=== PATIENT | female | born 1995 | race Caucasian/White ===

== ENCOUNTER 2023-05-19 08:16 | Emergency (ER) | payer OTHER, SELFPAY ==
[2023-05-19 08:24] VITALS: BP 130/75; PULSE 83; RESP 20; TEMP 36.3; O2SAT 100
--- NOTE | 2023-05-19 08:24 | ED.URI ---
HPI - URI/Sore Throat General Chief Complaint: Upper Respiratory Infection Stated Complaint: Body Aches/Sore Throat Source: patient and RN notes reviewed Mode of arrival: ambulatory Limitations: no limitations History of Present Illness HPI Narrative: patient is a 27-year-old female who presents to the [facility] with son with complaints of sore throat and congestion starting yesterday. She states that she is starting to develop a cough today that is nonproductive. She denies chest pain or shortness of breath. She also endorses some mild generalized body aches. Denies known fevers. She reports fever. Denies abdominal pain, nausea, vomiting, diarrhea. Unsure of any known sick contacts. However, her son presents to the [facility] with similar symptoms. Related Data Home Medications Medication Instructions Recorded Confirmed fluconazole 100 mg tablet 100 mg DIRECTED 05/19/23 05/19/23 sucralfate 1 gram tablet 1 g DIRECTED 05/19/23 05/19/23 Allergies Allergy/AdvReac Type Severity Reaction Status Date / Time metformin AdvReac Intermediate Abdominal Verified 05/19/23 08:35 Pain Review of Systems Review of Systems: CONSTITUTIONAL: Denies fever, chills, or sweats. EYES: Denies visual changes, redness, or discharge. ENT: Denies otalgia. Reports sore throat. Reports nasal congestion. CARDIOVASCULAR: Denies chest pain, palpitations, or edema. RESPIRATORY: Reports cough but denies dyspnea. GASTROINTESTINAL: Denies abdominal pain, nausea, vomiting, or diarrhea. GENITOURINARY: Denies dysuria or hematuria. SKIN: Denies rash or itching. MUSCULOSKELETAL: Denies back pain, joint pain, or myalgia. NEUROLOGIC: Reports headache, but denies numbness or weakness. Pertinent positives per HPI. PMFSH Comments At the time of my signature, I reviewed and agree with the nursing past medical, surgical, social, and family history. There is no relevant family history pertinent to the patient complaint. Exam Narrative: GENERAL: This is a well-nourished, well-developed patient, in no apparent distress. HEAD: normocephalic, atraumatic. EYES: PERRL. Sclera clear/white. Vision is grossly intact. EARS: External ears normal, auditory canals clear and without drainage, TMs normal without perforation. Hearing grossly intact. NOSE: External nose normal with no obvious nasal discharge, nares without redness, no rhinorrhea. THROAT: Mucous membranes moist, posterior pharynx clear. NECK: Neck supple, non-tender without lymphadenopathy, masses or thyromegaly. CARDIOVASCULAR: Regular rate and rhythm without murmurs, gallops, or rubs. RESPIRATORY: Clear to auscultation. Breath sounds equal bilaterally. No wheezes, rales, or rhonchi. GASTROINTESTINAL: Abdomen soft, non-tender, nondistended. Bowel sounds are active. No hepato-splenomegaly, or palpable masses. No guarding. SKIN: warm, intact with no suspicious lesions or rash, good texture and turgor. NEURO: awake, alert, and oriented to person, place and time. There were no obvious focal neurologic abnormalities. EXTREMITIES: No clubbing, cyanosis, or edema. No joint tenderness, effusion, or edema noted. BACK: Nontender without deformity or crepitance. No flank tenderness. Course Course Level of Care: Express Care Visit Vital Signs Vital signs: Vital Signs Temperature 97.3 F L 05/19/23 08:24 Pulse Rate 83 05/19/23 08:24 Respiratory Rate 20 05/19/23 08:24 Blood Pressure 130/75 05/19/23 08:24 Pulse Oximetry 100 05/19/23 08:24 Oxygen Delivery Room Air 05/19/23 08:24 Temperature 97.3 F L 05/19/23 08:24 Pulse Rate 83 05/19/23 08:24 Respiratory Rate 20 05/19/23 08:24 Blood Pressure 130/75 05/19/23 08:24 Pulse Oximetry 100 05/19/23 08:24 Oxygen Delivery Room Air 05/19/23 08:24 Reviewed MDM - URI/Sore Throat MDM Narrative Medical decision making narrative: Rapid strep is negative in the office; however we will send to the lab for confir
== END 2023-05-19 09:20 | disposition home or self-care (01) ==
PROVIDERS: Emergency Provider Nurse Practitioner; PCP Hospitalist
DX: B34.9 Viral infection, unspecified (principal); Z20.822 Contact with and (suspected) exposure to COVID-19; K21.9 Gastro-esophageal reflux disease without esophagitis
CPT/HCPCS: 87081; 87426; 87804; 87880; 99203; G0463

== ENCOUNTER 2023-07-13 17:42 | Emergency (ER) | payer OTHER, SELFPAY ==
[2023-07-13 17:50] VITALS: BP 132/65; PULSE 108; RESP 18; TEMP 37.1; O2SAT 98
--- NOTE | 2023-07-13 18:43 | ED.URI ---
HPI - URI/Sore Throat General Chief Complaint: Upper Respiratory Infection Stated Complaint: throat Time Seen by Provider: 07/13/23 18:30 Source: patient Mode of arrival: ambulatory Limitations: no limitations History of Present Illness HPI Narrative: 28 year old female who presents to [facility] with complaints of sore throat,sinus congestion, headache, body aches, fatigue some ear fullness since this morning. Patient reports that she has had some chills but no known fevers. She reports that she has taken an allergy medication.Patient reports that she had to leave work early today she was feeling bad. MD elicited complaint: sore throat, rhinorrhea, nasal congestion and other (headache, ear fullness, fatigue body aches, chills) Pertinent past history: seasonal allergies and other (history of strep) Onset (ago): day(s) (this morning) Pain scale (0-10): 6 Able to tolerate fluids by mouth: Yes Treatments prior to arrival: other (allergy medication) Related Data Allergies Allergy/AdvReac Type Severity Reaction Status Date / Time metformin AdvReac Intermediate Abdominal Verified 07/13/23 18:19 Pain Review of Systems Review of Systems: CONSTITUTIONAL: Reports malaise, chills, no sweats, no known fever. EYES: Denies visual changes, redness, or discharge. ENT: Reports rhinorrhea, congestion, sinus pain, otalgia and sore throat. CARDIOVASCULAR: Denies chest pain, palpitations, or edema. RESPIRATORY: Reports no cough.? Denies dyspnea. GASTROINTESTINAL: Denies abdominal pain, nausea, vomiting, diarrhea SKIN: Denies rash or itching. MUSCULOSKELETAL:Reports myalgia. NEUROLOGIC: Reports headache. All systems reviewed & are unremarkable except as noted in HPI and below PMFSH Past Medical History Medical History (Updated 07/15/23 @ 09:27 by Karmen Dixon NP) Anxiety and depression GERD (gastroesophageal reflux disease) History of PCOS Seasonal allergies Strep pharyngitis Social History Social History (Updated 07/15/23 @ 09:27 by Karmen Dixon NP) Smoking status: Current every day smoker Tobacco type: e-cigarettes/vaping Alcohol intake: current Alcohol use details: rare social Substance use type: does not use Living arrangements: with family Gender identity (if verbalized by the patient): Female Comments At time of signature, agree with nursing past medical, surgical, social and family history. There is no relevant family history pertinent to the presenting complaint Exam Narrative: GENERAL: Well-appearing, well-nourished, and in no acute distress. HEAD: Normocephalic EYES: PERRLA, conjunctivae clear ENT: Nares clear, turbinates edematous and erythematous, clear discharge, frontal headache. Mucous membranes moist.Left RM red and bulging,Right TM pearly darby with dull light reflex ; no tragal tenderness. Oropharynx erythematous without lesions. Tonsils not enlarged and without exudate, no drooling, no hoarseness, no trismus, uvula midline.post nasal drainage NECK: Supple. No lymphadenopathy CHEST: Clear to auscultation, breath sounds equal. No wheezing, rhonchi, rales, or stridor. No respiratory distress, speaks in full sentences.SAO2 98% on room air HEART: Regular rate and rhythm. No murmur heard. SKIN: Warm, dry, no rash. NEURO: Alert and oriented x3. PSYCH: Normal mood and affect Course Course Emergency Course: Patient is aware of diagnosis, understands and agrees to treatment plan.? Anticipatory guidance given.? Patient agrees to follow-up as directed and is aware of reasons to seek care at the emergency department. Portions of this record may have been created with voice recognition software Level of Care: Express Care Visit Vital Signs Vital signs: Vital Signs Temperature 37.1 C 07/13/23 17:50 Pulse Rate 108 H 07/13/23 17:50 Respiratory Rate 18 07/13/23 17:50 Blood Pressure 132/65 07/13/23 17:50 Pulse Oximetry 98 07/13/23 17:50
== END 2023-07-13 19:10 | disposition home or self-care (01) ==
PROVIDERS: Emergency Provider Registered Nurse; PCP Hospitalist
DX: H65.02 Acute serous otitis media, left ear (principal); F17.290 Nicotine dependence, other tobacco product, uncomplicated; K21.9 Gastro-esophageal reflux disease without esophagitis; E28.2 Polycystic ovarian syndrome
CPT/HCPCS: 87081; 87880; 99213; G0463

== ENCOUNTER 2024-04-24 14:12 | Emergency (ER) | payer OTHER, SELFPAY ==
--- NOTE | ~2024-04-24 | XR_ITS ---
EXAMINATION: XR nasal bones min 3V DATE: 04/24/2024 15:40 INDICATION: Nose injury. TECHNIQUE: 4 views of the nasal bones were obtained. COMPARISON: None. FINDINGS: There is leftward deviation of the nasal septum. No fracture. There is near complete opacif ication of right maxillary sinus. IMPRESSION: 1. No fracture. Reviewed, dictated and finalized at location A. E PEELER OPERATOR IMPRESSION: 1. No fracture.
[2024-04-24 14:20] VITALS: BP 125/70; PULSE 109; RESP 16; TEMP 37; O2SAT 99
--- OUTSIDE RECORDS SUMMARY | 2024-04-24 14:56 | XMS_ITS | Patient Health Summary ---
Author Organization [facility] [employer] Address [address] [facility] [address] [place] [address] Care Team Providers Care Mixing Picker Tender Name Role Phone Unavailable Primary Care Provider Unavailabl e Note from [facility],non-owned Affiliates and Associated Physician Practices is amultiple site organization consisting of ambulatory clinics and hospital sitesin [place], [place], [place] and [place]. This disclosure is being madepursuant to the Care Everywhere program and may not contain all information available regarding this patient. Last updated 17.[facility] [employer] Allergies No known active allergies Medications * Be aware that medications may not be up to date on this document. Alwaysverify current medications with the patient. * Vit-Fe Fumarate-FA ( VITAMIN) 28-0.8 MG tablet Take 1 Tab by mouth once daily * ibuprofen (MOTRIN) 600 MG tablet(Started 09/28/2015) Take 1 Tab by mouth every 6 hours as needed for Pain 1 refill left * docusate sodium (COLACE) 100 MG capsule(Started 09/28/2015) Take 1 Cap by mouth 2 times daily 1 refill left Active Problems Problem Noted Date Diagnosed Date Abnormal Pap smear of cervix 09/10/2015 History of tobacco use 09/10/2015 premature rupture of membranes (PPROM) with unknown onset of labor 09/10/2015 SAB (spontaneous ) 09/10/2015 Anxiety 09/10/2015 Depression 09/10/2015 abnormality affecting management of mother Hyperglycemia in Immunizations * TDAP (7yrs+)(Given 09/17/2015) Social History Tobacco Use Types Packs/Day Years Used Date Smoking Tobacco: Former Cigarettes Tobacco Cessation:Counseling Given: Yes Alcohol Use Standard Drinks/Week Comments Not Asked 0 (1 standard drink = 0.6 oz pur e alcohol) Sex and Gender Information Value Date Recorded Sex Assigned at Not on file Gender Identity Not on file Sexual Orientation Not on file Last Filed Vital Signs Vital Sign Reading Time Taken Comments Blood Pressure 135/91 09/28/2015 12:56 PM CDT Pulse 81 09/28/2015 12:56 PM CDT Temperature 36.9 ??C (98.4 ??F) 09/28/2015 9:31 AM CD T Respiratory Rate 18 09/28/2015 12:5 6 PM CDT Oxygen Saturation 99% 09/27/2015 9:35 PM CDT Inhaled Oxygen Concentration - - Weight 80.2 kg (176 lb 11.2 oz) 016 11:45 AM CDT Height 157.5 cm (5' 2 ) 09/15/2015 11:3 5 AM CDT Body Mass Index 32.32 09/15/2015 11:35 AM CDT Procedures * IMAGING/RADIOLOGY/XRAY RESULTS ORDER(Performed 10/02/2015) * CBC W/O DIFFERENTIAL(Performed 09/27/2015) * BLOOD GASES CORD ART (ISTAT)(Performed 09/26/2015) * NEURAXIAL BLOCK(Performed 09/26/2015) * AMNISURE(Performed 09/26/2015) * TYPE + SCREEN PANEL(Performed 09/25/2015) * CBC W AUTO DIFFERENTIAL(Performed 09/25/2015) * GLUCOSE - POINT OF CARE(Performed 09/24/2015) * GLUCOSE - POINT OF CARE(Performed 09/24/2015) * GLUCOSE - POINT OF CARE(Performed 09/23/2015) * GLUCOSE - POINT OF CARE(Performed 09/23/2015) * GLUCOSE - POINT OF CARE(Performed 09/22/2015) * GLUCOSE - POINT OF CARE(Performed 09/22/2015) * GLUCOSE PROTEIN KETONE URINE - POINT OF CAR(Performed 09/22/2015) * GLUCOSE - POINT OF CARE(Performed 09/22/2015) * GLUCOSE - POINT OF CARE(Performed 09/22/2015) * GLUCOSE - POINT OF CARE(Performed 09/21/2015) * GLUCOSE - POINT OF CARE(Performed 09/21/2015) * GLUCOSE - POINT OF CARE(Performed 09/20/2015) * GLUCOSE - POINT OF CARE(Performed 09/20/2015) * GLUCOSE - POINT OF CARE(Performed 09/19/2015) * GLUCOSE - POINT OF CARE(Performed 09/19/2015) * GLUCOSE - POINT OF CARE(Performed 09/19/2015) * GLUCOSE - POINT OF CARE(Performed 09/18/2015) * GLUCOSE - POINT OF CARE(Performed 09/18/2015) * GLUCOSE - POINT OF CARE(Performed 09/18/2015) * GLUCOSE - POINT OF CARE(Performed 09/18/2015) * GLUCOSE - POINT OF CARE(Performed 09/18/2015) * GLUCOSE - POINT OF CARE(Performed 09/17/2015) * GLUCOSE - POINT OF CARE(Performed 09/17/2015) * GLUCOSE - POINT OF CARE(Performed 09/17/2015) * GLUCOSE - POINT OF CARE(Performed 09/17/2015) * GLUCOSE - POINT OF CARE(Performed 09/16/2015) * GLUCOSE - POINT OF CARE(Performed 09/16/2015) * GLUCOSE - POINT OF CARE(Performed 09/16/2015) * GLUCOSE - POINT OF CARE(Performed 09/16/2015) * GLUCOSE - POINT OF CARE(Performed 09/16/2015) * GLUCOSE - POINT OF CARE(Performed 09/16/2015) * GLUCOSE PROTEIN KETONE URINE - POINT OF CAR(Performed 09/15/2015) * GLUCOSE - POINT OF CARE(Performed 09/15/2015) * GLUCOSE - POINT OF CARE(Performed 09/15/2015) * GLUCOSE - POINT OF CARE(Performed 09/15/2015) * GLUCOSE - POINT OF CARE(Performed 09/15/2015) * GLUCOSE - POINT OF CARE(Performed 09/15/2015) * GLUCOSE - POINT OF CARE(Performed 09/15/2015) * GLUCOSE - POINT OF CARE(Performed 09/15/2015) * GLUCOSE - POINT OF CARE(Performed 09/15/2015) * GLUCOSE - POINT OF CARE(Performed 09/15/2015) * GLUCOSE - POINT OF CARE(Performed 09/15/2015) * GLUCOSE - POINT OF CARE(Performed 09/14/2015) * GLUCOSE - POINT OF CARE(Performed 09/14/2015) * GLUCOSE - POINT OF CARE(Performed 09/14/2015) * GLUCOSE - POINT OF CARE(Performed 09/14/2015) * GLUCOSE - POINT OF CARE(Performed 09/14/2015) * GLUCOSE - POINT OF CARE(Performed 09/14/2015) * GLUCOSE - POINT OF CARE(Performed 09/14/2015) * GLUCOSE - POINT OF CARE(Performed 09/13/2015) * GLUCOSE - POINT OF CARE(Performed 09/13/2015) * GLUCOSE - POINT OF CARE(Performed 09/13/2015) * GLUCOSE - POINT OF CARE(Performed 09/13/2015) * GLUCOSE - POINT OF CARE(Performed 09/13/2015) * GLUCOSE - POINT OF CARE(Performed 09/13/2015) * GLUCOSE - POINT OF CARE(Performed 09/12/2015) * GLUCOSE - POINT OF CARE(Performed 09/12/2015) * GLUCOSE - POINT OF CARE(Performed 09/12/2015) * GLUCOSE - POINT OF CARE(Performed 09/12/2015) * GLUCOSE - POINT OF CARE(Performed 09/12/2015) * GLUCOSE - POINT OF CARE(Performed 09/11/2015) * SONOGRAM - COMPLETE(Performed 09/11/2015) * AMNISURE(Performed 09/10/2015) * URINE DRUG SCREEN IMMUNOASSAY(Performed 09/10/2015) Performed for premature rupture of membranes (PPROM) with unknown onset of labor (HCC) * TYPE + SCREEN PANEL(Performed 09/10/2015) Performed for premature rupture of membranes (PPROM) with unknown onset of labor (HCC) * COMPREHENSIVE METABOLIC PANEL(Performed 09/10/2015) Performed for premature rupture of membranes (PPROM) with unknown onset of labor ([facility]) * CBC W AUTO DIFFERENTIAL(Performed 09/10/2015) Performed for premature rupture of membranes (PPROM) with unknown onset of labor (HCC) * CHLAMYDIA + GC AMPLIFIED PROBE(Performed 09/10/2015) Performed for premature rupture of membranes (PPROM) with unknown onset of labor ([facility]) * CULTURE STREP B(Performed 09/10/2015) Performed for premature rupture of membranes (PPROM) with unknown onset of labor (HCC) * CULTURE URINE(Performed 01/12/2014) Results * IMAGING/RADIOLOGY/XRAY RESULTS ORDER (10/02/2015 5:02 AM CDT) Anatomical Region Laterality Modality Other Narrative 10/02/2015 5:02 AM CDT Ordered by an unspecified provider. Scanned Document IMAGING * (ABNORMAL) CBC W/O DIFFERENTIAL (09/27/2015 11:20 AM CDT) WBC 13.7(H) 4.4 - 10.7 x10E9/L 09/27/2015 11:49 AM CDT [facility] RBC 4.13 3.80 - 5.20 x10E12/L 09/27/2015 11:49 AM CDT [facility] Hemoglobin 11.2(L) 12.0 - 15.6 gm/dL 09/27/2015 11:49 AM CDT [facility] Hematocrit 33.9(L) 35.9 - 45.5 % 09/27/2015 11:49 AM CDT [facility] MCV 82.1 80.7 - 98.3 fl 09/27/2015 11:49 AM CDT [facility] MCH 27.1 26.7 - 34.0 pg 09/27/2015 11:49 AM CDT [facility] MCHC 33.0 30.8 - 35.9 gm/dL 09/27/2015 11:49 AM CDT [facility] Platelet Count 173 153 - 416 x10E9/L 09/27/2015 11:49 AM CDT [facility] RDW-CV 13.5 12.1 - 14.9 % 09/27/2015 11:49 AM CDT [facility] MPV 11.5 9.4 - 12.9 fl 09/27/2015 11:49 AM CDT [facility] Blood BLOOD SPECIMEN / Unknown Lab Venipuncture / Unknown 09/27/2015 11:20 AM CDT 09/27/2015 11:38 AM CDT Meli Conti MD LAB - HEMATOLOGY OR DERABLES Performing Organization Address [facility]/State/[facility] Co de Phone Number [facility] [address] [place], [place] [id number] * (ABNORMAL) BLOOD GASES CORD ART (ISTAT) (09/26/2015 7:43 PM CDT) pH Cord Arterial POCT 7.33 7.20 - 7.34 pH 09/26/2015 7:57 PM CDT [facility] pCO2 Cord Arterial POCT 44.9(L) 45 - 55 mmHg 09/26/2015 7:57 PM CDT [facility] pO2 Cord Arterial POCT 23 12 - 25 mmHg 09/26/2015 7:57 PM CDT [facility] HCO3 Cord Arterial POCT 23.6 15 - 29 mmol/L 09/26/2015 7:57 PM CDT [facility] BE Cord Arterial POCT -3(L) -2.9 - 8.3 mmol/L 09/26/2015 7:57 PM CDT [facility] TCO2 Cord Arterial POCT 25 mmol/L 09/26/2015 7:57 PM CDT [facility] O2 Saturation Cord Art % Calc POCT 34 % 09/26/2015 7:57 PM CDT [facility] Site CORD ART 09/26/2015 7:57 PM CDT [facility] Sample iSTAT CORD A 09/26/2015 7:57 PM CDT [facility] Blood CORD BLOOD SPECIMEN / Unknown 09/26/2015 7:43 PM CDT 09/26/2015 7:57 PM CDT Dewey Pete MD LAB - POINT OF CARE ORDERABLES Performing Organization Address City/State/[facility] Co de Phone Number [facility] [address] [place] [address] * NEURAXIAL BLOCK (09/26/2015 3:00 PM CDT) Narrative Silas Peoples APRN-CRNA - 09/26/2015 3:00 PM CDT Silas Peoples APRN-CRNA ? 09/26/2015 ??3:00 PM NEURAXIAL BLOCK Patient Location: ??OB Pre Procedure Indication: ??labor analgesia Anticoagulation /Antithrombosis Status Confirmed: Yes Preanesthetic Checklist: ??patient identified, IV checked, site marked, risks and benefits discussed, surgical consent verified, monitors and equipment checked, pre-op evaluation done, timeout performed, informed consent obtained and questions answered / anesthesia plan accepted Monitors: ??BP and Pulse Ox Patient Condition: ??awake Procedure Block Performed: ??epidural Prep: ??Betadine Sterile Field: ??sterile gloves, sterile field established, cap/hat and mask Approach: ??midline Skin Numbed with: ??lidocaine 1% Epidural Needle Type: ??Tuohy Needle Gauge: 18 Needle Length: ??9 cm Placement Site: ??L4-L5 Number of Attempts: ??1 Loss of ResistanceTechnique: ??saline Loss of Resistance: ??6 cm Catheter Threaded to: ??5 cm Catheter Length at Skin: ??11 cm CSF Aspirated from Catheter: ??negative Blood Aspirated from Catheter: ??negative Test Dose: ??lidocaine 1.5% with 1 200 k epinephrine 3 ml ??at 09/26/2015 2:52 PM Test Dose Response: ??negative Local Anesthetic: ??lidocaine 2% 5 ml Epidural additive: ??fentanyl ? Events CSF return negative injection not painful no paresthesia no other event Degree of Difficulty: ??none Position Post Procedure: ??left uterine displacement Vital signs monitored and stable throughout. ??See Anesthesia Intraop record for details. heart tones monitored and stable throughout. Block Start Time: ??09/26/2015 2:50 PM Block End Time: ??09/26/2015 2:52 PM Block Performed by: ??Molly peoples CRNA Dewey Pete MD GENERAL ANESTHESIA O RDERABLES * (ABNORMAL) AMNISURE (09/26/2015 6:06 AM CDT) Only the most recent of2 resultswithin the time period is included. Amnisure (PAMG-1) Positive(A ) Negative 09/26/2015 6:27 AM CDT [facility] Fluid AMNIOTIC FLUID SPECIMEN / Unknown Collection / Unknown 09/26/2015 6:06 AM CDT 09/26/2015 6:16 AM CDT Narrative [facility] - 09/26/2015 6:27 AM CDT The performance of AmniSure has not been established in the presence of the following contaminants: meconium, anti-fungal creams or suppositories, K-Y Jelly, Monistat, baby powder (starch or talc), replens, or baby oil. In the presence of a significant amount of blood, the test can malfunction and is not recommended. Interrupted leakage with minimal residual fluid can lead to false negative result. Results should be used in conjunction with other clinical information. Test performance in patients without signs of ROM is unknown. Placenta previa and performing digital exams prior to sample collection can lead to inaccurate test results. Failure to detect membrane rupture does not assure the absence of membrane rupture. Francia Mejia MD LAB - BODY FLUID ORD ERABLES Performing Organization Address [facility]/ZIP Co de Phone Number [facility] [address] [place] [address] * TYPE + SCREEN PANEL (09/25/2015 9:09 PM CDT) Only the most recent of2 resultswithin the time period is included. Pathologist [facility] ABO A 09/25/2015 10:07 PM CDT [facility] Rh Type Positive 09/25/2015 10:07 PM CDT [facility] Comment:History check perfor med. No retype required. Antibody Screen Negative 09/25/2015 10:07 PM CDT [facility] Miscellaneous samples (specimen) BLOOD SPECIMEN / Unknown Venipuncture / Unknown 09/25/2015 9:09 PM CDT 09/25/2015 9:15 PM CDT Mihaela Alicia MD LAB - BLOOD BANK ORD ERABLES Performing Organization Address [facility] Co de Phone Number [facility] [address] * (ABNORMAL) CBC W AUTO DIFFERENTIAL (09/25/2015 9:09 PM CDT) Only the most recent of2 resultswithin the time period is included. Pathologist [facility] WBC 13.5(H) 4.4 - 10.7 x10E9/L 09/25/2015 9:20 PM CDT [facility] WBC Corrected x10E9/L 09/25/2015 9:20 PM CDT [facility] RBC 4.32 3.80 - 5.20 x10E12/L 09/25/2015 9:20 PM CDT [facility] Hemoglobin 11.8(L) 12.0 - 15.6 gm/dL 09/25/2015 9:20 PM CDT [facility] Hematocrit 35.2(L) 35.9 - 45.5 % 09/25/2015 9:20 PM CDT [facility] MCV 81.5 80.7 - 98.3 fl 09/25/2015 9:20 PM CDT [facility] MCH 27.3 26.7 - 34.0 pg 09/25/2015 9:20 PM [facility] MCHC 33.5 30.8 - 35.9 gm/dL 09/25/2015 9:20 PM [facility] Platelet Count 197 153 - 416 x10E9/L 09/25/2015 9:20 PM [facility] RDW-CV 13.5 12.1 - 14.9 % 09/25/2015 9:20 PM [facility] MPV 11.5 9.4 - 12.9 fl 09/25/2015 9:20 PM [facility] Neutrophils % 75.5(H) 44.0 - 73.0 % 09/25/2015 9:20 PM [facility] Lymphocytes % 15.8(L) 20.0 - 43.0 % 09/25/2015 9:20 PM [facility] Monocytes % 7.3 5.0 - 13.0 % 09/25/2015 9:20 PM [facility] Eosinophils % 0.7 0.0 - 6.0 % 09/25/2015 9:20 PM [facility] Basophils % 0.1 0.0 - 2.0 % 09/25/2015 9:20 PM [facility] Immature Granulocytes 0.6 0 - 1 % 09/25/2015 9:20 PM [facility] Neutrophil Absolute 10.18(H) 2.01 - 7.14 x10E9/L 09/25/2015 9:20 PM [facility] Lymphocytes Absolute 2.13 1.07 - 3.94 x10E9/L 09/25/2015 9:20 PM [facility] Monocytes Absolute 0.98 0.26 - 1.07 x10E9/L 09/25/2015 9:20 PM [facility] Eosinophils Absolute 0.09 0 - 0.47 x10E9/L 09/25/2015 9:20 PM [facility] Basophils Absolute 0.01 0 - 0.08 x10E9/L 09/25/2015 9:20 PM [facility] Immature Granulocytes Absolute 0.08(H) 0.00 - 0.06 x10E9/L 09/25/2015 9:20 PM [facility] nRBC Auto 0 /100 WBC 09/25/2015 9:20 PM CDT [facility] Blood BLOOD SPECIMEN / Unknown Venipuncture / Unknown 09/25/2015 9:09 PM CDT 09/25/2015 9:15 PM CDT Mihaela Alicia MD LAB - HEMATOLOGY ORD ERABLES Performing Organization Address [facility]/ZIP Co de Phone Number [facility] [address] [place] [address] * (ABNORMAL) GLUCOSE - POINT OF CARE (09/24/2015 11:10 AM CDT) Only the most recent of59 resultswithin the time period is included. Glucose WB/POC 149(H) 70 - 106 mg/dL 09/24/2015 6:16 PM CDT [facility] Blood BLOOD SPECIMEN / Unknown 09/24/2015 11:10 AM CDT 09/24/2015 6:16 PM CDT Dewey Pete MD LAB - POINT OF CARE ORDERABLES Performing Organization Address [facility] Co de Phone Number [facility] [address] [place] [address] * GLUCOSE PROTEIN KETONE URINE - POINT OF CAR (09/22/2015 2:47 PM CDT) Only the most recent of2 resultswithin the time period is included. Glucose UA negative Negative [facility] Protein UA negative Negative [facility] Ketone UA negative Negative [facility] QC Verified Yes Yes [facility] POC T TESTING Urine specimen (specimen) URINE / Unknown 09/22/2015 2:47 PM CDT Mariah Amaral MD LAB - POINT OF CA RE ORDERABLES Performing Organization Address [facility] Co de Phone Number [facility] [address] [place] [address] * SONOGRAM - COMPLETE (09/11/2015 10:59 AM CDT) Anatomical Region Laterality Modality Other 09/11/2015 10:5 9 AM CDT Narrative 09/11/2015 4:18 PM CDT ? [facility] ?PHONE: ??FAX: Pat. Name: ?JONNIE RAVI Pat. No: ?[id number] Study Date: ?? 09/11/2015 ??10:59am , Age: ? 1995, 20 Pregnancies: ?? 2, Para 0, Ab 1 Height: ? 62 in Weight: ? 148 lb LMP: ?Unknown GA by US: ? 32w1d GA Selected: ??32w1d (Sonographic) DIPAK: ?11/05/2015 Referring MD: Kay Velasquez MD Sausage Tier: ??Miriam Fraga RDMS Hist/Ind: ? PPROM MEASUREMENTS & AGE ? GROWTH EVALUATION Measurement ??GA ? Range ? Srce %for GA Ratios ----- ---- ------- BPD ??7.9 cm 31w4d (95s4y-05z4y) Hadl BPD 42% FL/BPD 0.70 (0.71 - 0.87* HC ??27.1 cm 29w4d (47t0o-54b1z) Hadl HC ??<05 FL/AC ??0.19 (0.20 - 0.24* AC ??28.7 cm 32w5d (67x8l-05c4w) Hadl AC ??58% HC/AC ??0.94 (0.95 - 1.14* FL ?? 5.5 cm 29w1d (52a0d-93a4c) Hadl FL ??<05 CI ? 0.86 (0.70 - 0.86) HL ?? 5.0 cm 29w0d (24u4h-43w2u) Brendan HL ??<05 GA for sonogram 32w1d (23a7w-78b9h) ?? Weight Estimate: based on (BPD,AC) Hadlock ?Weight: 1731 gm (7363-1755) Hadlo ? : 3lbs, 13oz ? Normal: 1993 gm (1495- 2491) Hadlo ? Wt% ? 25% for 32w1d Heart Rate: 128 bpm Amniotic Fluid Index: 12.1cm (08.5-24.3) Q1: 3.5cm ??Q2: 4.2cm ??Q3: 1.7cm ??Q4: 2.7cm ?? CLINICAL SUMMARY Study Number: 1 A single fetus is identified in cephalic presentation. ??The measurements today are consistent with appropriate size for the DIPAK provided. ??The DIPAK selected is based on a prior ultrasound examination. ??The amniotic fluid volume is within normal limits. ?? The placenta is posterior. ??No major malformations are seen today, within the limitations of ultrasound examination. ?? Visualization of the anatomy is limited by gestational age, and by position. The patient was advised that ultrasound does not allow detection of all structural or chromosomal abnormalities. IMPRESSION: 1. Single, live, IUP at 32w1d 2. Appropriate size for the DIPAK provided 3. Normal amniotic fluid volume 4. Posterior placenta RECOMMEND: ?? Follow up ultrasound as clinically indicated per the Inpatient Healthcare Liaison team. ?? Thank you for allowing us the opportunity to care for your patient. cc: ??Inpatient at time of study ? Loraine Bhatti MD ?<Electronic Signature> ??09/11/2015 04:18pm Dewey Pete MD [facility] ORDERABLES * DRUG SCREEN TOX URINE PANEL (09/10/2015 3:31 PM CDT) [facility] Amphetamines Screen Urine Not Detected Not Detected 09/10/2015 4:10 PM CDT [facility] Barbiturates Screen Urine Not Detected Not Detected 09/10/2015 4:10 PM CDT [facility] Benzodiazepines Screen Urine Not Detected Not Detected 09/10/2015 4:10 PM CDT [facility] Cannabinoids Screen Urine Not Detected Not Detected 09/10/2015 4:10 PM CDT [facility] Cocaine Screen Urine Not Detected Not Detected 09/10/2015 4:10 PM CDT [facility] Methadone Screen Urine Not Detected Not Detected 09/10/2015 4:10 PM CDT [facility] Opiate Screen Urine Not Detected Not Detected 09/10/2015 4:10 PM CDT [facility] Phencyclidine Screen Urine Not Detected Not Detected 09/10/2015 4:10 PM CDT [facility] Urine URINE / Unknown Collection / Unknown 09/10/2015 3:31 PM CDT 09/10/2015 3:43 PM CDT Narrative [facility] - 09/10/2015 4:10 PM CDT This drug screen is designed for MEDICAL purposes only. It is not to be used for legal purposes, including but not limited to worker's comp, police investigations, occupational issues, child custody, etc. ??Any positive result is only presumptive and must be confirmed with a separate confirmatory test ordered by the physician. Drug Screening Test Cutoff Values: AMPHETAMINES ?1000 ng/mL BARBITURATES ? 200 ng/mL BENZODIAZEPINES ??200 ng/mL CANNABINOIDS(THC) 50 ng/mL COCAINE ?300 ng/mL METHADONE ?300 ng/mL OPIATES ?300 ng/mL PHENCYCLIDINE(PCP)25 ng/mL Maricrzu Coley MD LAB - URINE CHEMI STRY ORDERABLES [facility] [address] [place] [address] * (ABNORMAL) COMPREHENSIVE METABOLIC PANEL (09/10/2015 3:29 PM CDT) [facility] Glucose 68(L) 74 - 106 mg/dL 09/10/2015 4:31 PM CDT [facility] Sodium 137 136 - 145 mmol/L 09/10/2015 4:31 PM CDT [facility] Potassium 3.9 3.5 - 5.1 mmol/L 09/10/2015 4:31 PM CDT [facility] Chloride 105 98 - 107 mmol/L 09/10/2015 4:31 PM CDT [facility] CO2 23 22 - 31 mmol/L 09/10/2015 4:31 PM CDT [facility] Calcium 8.7 8.5 - 10.1 mg/dL 09/10/2015 4:31 PM CDT [facility] Anion Gap 9 5 - 20 mmol/L 09/10/2015 4:31 PM CDT [facility] BUN 5(L) 7 - 21 mg/dL 09/10/2015 4:31 PM CDT [facility] Creatinine 0.53 0.50 - 1.30 mg/dL 09/10/2015 4:31 PM CDT [facility] Alkaline Phosphatase 97 38 - 126 U/L 09/10/2015 4:31 PM CDT [facility] ALT 24 12 - 78 U/L 09/10/2015 4:31 PM CDT [facility] AST 14 5 - 40 U/L 09/10/2015 4:31 PM CDT [facility] Protein Total 7.3 6.4 - 8.2 gm/dL 09/10/2015 4:31 PM CDT [facility] Albumin 2.6(L) 3.4 - 5.0 gm/dL 09/10/2015 4:31 PM CDT [facility] Bilirubin Total 0.4 0.2 - 1.0 mg/dL 09/10/2015 4:31 PM CDT [facility] eGFR by MDRD >60 >60 mL/min/1.7 3m2 09/10/2015 4:31 PM CDT [facility] eGFR by MDRD >60 >60 mL/min/1.7 3m2 09/10/2015 4:31 PM CDT [facility] Blood BLOOD SPECIMEN / Unknown Venipuncture / Unknown 09/10/2015 3:29 PM CDT 09/10/2015 3:43 PM CDT Maricruz Coley MD LAB - CHEMISTRY O RDERABLES [facility] [address] [place] [address] * CHLAMYDIA + GC AMPLIFIED PROBE (09/10/2015 2:57 PM CDT) Chlamydia Amplified Probe Negative Negative 09/11/2015 6:59 AM CDT [facility] GC Amplified Probe Negative Negative 09/11/2015 6:59 AM CDT [facility] Microbiology PART OF UTERINE CERVIX / Unknown Collection / Unknown 09/10/2015 2:57 PM CDT 09/10/2015 3:43 PM CDT Narrative [facility] - 09/11/2015 6:59 AM CDT Results based on detection/no detection of ribosomal RNA by amplified method. Maricruz Coley MD LAB - MICROBIOLOG Y ORDERABLES Performing Organization Address City/[facility]/ZIP Co de Phone Number [facility]CRO[facility] [address] [place] [address], [facility] [phone] * CULTURE STREP B (09/10/2015 2:57 PM CDT) Culture Negative for Beta Hemolytic Streptococcus Group B DENNIS 09/13/2015 10:26 AM CDT [facility]CRO[facility] Microbiology MISCELLANEOUS SAMPLES / Unknown Collection / Unknown 09/10/2015 2:57 PM CDT 09/10/2015 3:43 PM CDT Maricruz Coley MD LAB - MICROBIOLOG Y ORDERABLES Performing Organization Address [facility] [place]/[facility] Co de Phone Number [facility] [address] [facility] [place] [address], [facility] [phone] * (ABNORMAL) CULTURE URINE (01/12/2014 4:25 PM CDT) Culture Urine ESCHERICHIA COLI(A) [facility] Comment:100,000 CFU/ML Esche richia Coli Urine specimen (specimen) URINE SPECIMEN OBTAINED BY CLEAN CATCH PROCEDURE / Unknown 01/12/2014 4:25 PM CDT 01/12/2014 9:47 PM CDT Narrative [facility] - 01/14/2014 11:42 AM CDT [id number] Ha Loc/Rm/Bed: EXPCARE B// CLN CATCH U Organism Antibiotic Method Susceptibility Escherichia coli Amikacin SUSCEPTIBILITY <=2: Sensitive Escherichia coli Ampicillin SUSCEPTIBILITY >=32: Resistant Escherichia coli Ampicillin-sulbactam SUSCEPTIBILITY 16: Intermediate Escherichia coli Cefazolin SUSCEPTIBILITY <=4: Sensitive Escherichia coli Cefepime SUSCEPTIBILITY <=1: Sensitive Escherichia coli Ceftazidime SUSCEPTIBILITY <=1: Sensitive Escherichia coli Ceftriaxone SUSCEPTIBILITY <=1: Sensitive Escherichia coli Gentamicin SUSCEPTIBILITY >=16: Resistant Escherichia coli Imipenem SUSCEPTIBILITY <=0.25: Sensitive Escherichia coli Levofloxacin SUSCEPTIBILITY <=0.12: Sensitive Escherichia coli Nitrofurantoin SUSCEPTIBILITY 64: Intermediate Escherichia coli Piperacillin-tazobactam SUSCEPTIBILIT Y <=4: Sensitive Escherichia coli Tobramycin SUSCEPTIBILITY 2: Sensitive Escherichia coli Trimethoprim-sulfamethoxazole SUSCEPT IBILITY <=20: Sensitive Escherichia coli Extended-Spectrum Beta-Lactamase SUSC EPTIBILITY Neg: - Historical Provider LAB - MICROBIOLOG Y ORDERABLES Performing Organization Address City/State/[facility] Co de Phone Number [facility] [address] [phone]
--- OUTSIDE RECORDS SUMMARY | 2024-04-24 14:56 | XMS_ITS | Clinical Summary ---
Author Organization [facility] Address [facility] [place] [address] Care Team Providers Care Hatch Boss Name Role Phone Unavailable Primary Care Provider Unavailabl e Source Comments [facility],non-owned Affiliates and Associated Physician Practices is amultiple site organization consisting of ambulatory clinics and hospital sitesin [place], [place], [place] and [place]. This disclosure is being madepursuant to the Care Everywhere program and may not contain all information available regarding this patient. Last updated 17.[facility] Allergies No known active allergies Medications * Be aware that medications may not be up to date on this document. Alwaysverify current medications with the patient. Medication Sig Dispensed Refills Start Date End Date Status Vit-Fe Fumarate-FA ( VITAMIN) 28-0.8 MG tablet Take 1 Tab by mouth once daily Active ibuprofen (MOTRIN) 600 MG tablet Take 1 Tab by mouth every 6 hours as needed for Pain 60 Tab 1 09/28/2015 Active docusate sodium (COLACE) 100 MG capsule Take 1 Cap by mouth 2 times daily 60 Cap 1 09/28/2015 Active Active Problems Problem Noted Date Diagnosed Date Abnormal Pap smear of cervix 09/10/2015 History of tobacco use 09/10/2015 premature rupture of membranes (PPROM) with unknown onset of labor 09/10/2015 SAB (spontaneous ) 09/10/2015 Anxiety 09/10/2015 Depression 09/10/2015 abnormality affecting management of mother Hyperglycemia in Immunizations Name Administration Dates Next Due TDAP (7yrs+) 09/17/2015 Social History Tobacco Use Types Packs/Day Years [...] Mass Index 32.32 09/15/2015 11:35 AM CDT Plan of Treatment Health Maintenance Due Date Last Done Comments PAP SMEAR 1995 HIV SCREENING 06/20/2010 HEPATITIS C SCREENING 06/16/2013 HEPATITIS B VACCINE (1 of 3 - 19+ 3-dose series) 06/20/2014 COVID-19 VACCINE (2023-2 5 season) 2023 INFLUENZA VACCINE (#1) 2023 DEPRESSION SCREENING 03/29/2024 DTAP/TDAP/TD VACCINES (2 - T d or Tdap) 09/16/2025 09/17/2015 ZOSTER VACCINE (1 of 2) 06/20/2045 HIB VACCINE Aged Out No longer eligi ble based on patient's age to complete this topic HPV VACCINE Aged Out No longer eligi ble based on patient's age to complete this topic MENINGOCOCCAL (Group B) VACCINE Aged Out No longer eligible based on patient's age to complete this topic MENINGOCOCCAL VACCINE Aged Out No lina forrest eligible based on patient's age to complete this topic PNEUMOCOCCAL VACCINE Aged Out No long er eligible based on patient's age to complete this topic Advance Directives * Full Code (Latest Code Status on File) Date Activated Date Inactivated Comments 09/10/2015 2:12 PM 09/28/2015 9:07 PM
--- OUTSIDE RECORDS SUMMARY | 2024-04-24 14:56 | XMS_ITS | Referral Summary ---
Author Organization [facility] [email or web address] Address [facility] [facility] [place] [address] Care Team Providers Care Public Works Director Name Role Phone Unavailable Primary Care Provider Unavailabl e Source Comments [facility] [email or web address],non-owned Affiliates and Associated Physician Practices is amultiple site organization consisting of ambulatory clinics and hospital sitesin [place], [place], [place] and [place]. This disclosure is being madepursuant to the Care Everywhere program and may not contain all information available regarding this patient. Last updated 17.[facility] [email or web address] Allergies No known active allergies Medications * [...] Mass Index 32.32 09/15/2015 11:35 AM CDT Functional Status Functional Status Response Date of Assess ment Is person deaf or have serious hearing difficult y? No 09/10/2015 Is person blind or have serious difficulty seein g? No 09/10/2015 Does person have serious dif ficulty walking/climbing stairs? No 09/10/2015 Does person have difficulty dressing/bathing? No 09/10/2015 Does person have difficulty doing errands alone? No 09/10/2015 Cognitive Status Response Date of Assessm ent Does person have difficulty concentrating/remembering/making decisions? No 09/10/2015 Plan of Treatment Not on file Advance Directives * Full Code (Latest Code Status on File) Date Activated Date Inactivated Comments 09/10/2015 2:12 PM 09/28/2015 9:07 PM
--- OUTSIDE RECORDS SUMMARY | 2024-04-24 14:56 | XMS_ITS ---
Care Plan - [facility] Created on: April 24, 2024 TRENAJONNIE : 1995 Sex: Female Author Organization [facility] Address [address] [place] [address] Phone Care Team Providers Care Director Biology Name Role Phone ROBERTA WARNER MD Primary Care Provider [phone]
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
--- OUTSIDE RECORDS SUMMARY | 2024-04-24 14:56 | XMS_ITS | Clinical Summary ---
Author Organization [facility] Address [address] [place] [address] Phone Care Team Providers Care Physical Director Name Role Phone Kay Velasquez MD Unavailable [phone] Augusto Barnhart MD Primary Care Provider [phone] Allergies Active Allergy Reactions Criticality Noted Date Comments Metformin Anxiety 11/23/2022 Medications ibuprofen (MOTRIN) 600 MG Tablet Take 1 Tab by mouth every 6 hours as needed for Pain. 20 Tab 7 Active ondansetron (ZOFRAN ODT) 4 MG TABLET DISPERSIBLE Take 1 Tab by mouth every 8 hours as needed for Nausea - 3rd line. 10 Tab 8 Active Additional Information Patient not taking.Reported on 11/14/2017 DULoxetine (CYMBALTA) [address] Particles Take 1 Cap by mouth daily. 90 Cap 8 Active ondansetron (ZOFRAN-ODT) 4 MG TABLET DISPERSIBLEIndic ations:Nausea Take 1 Tab by mouth every 8 hours as needed for Nausea - 1st line. 10 Tab 9 Active meclizine (ANTIVERT) 25 MG Tablet Take 1 Tab by mouth 3 times daily as needed for Dizziness. 30 Tab 0 Active albuterol 108 (90 Base) MCG/ACT Aerosol Solution take 2 Puffs by inhalation every 6 hours as needed for Wheezing or Cough. 8 g 3 Active naproxen (NAPROSYN) 500 MG Tablet Take 1 Tablet by mouth 2 times daily as needed for Mild or more severe pain. 20 Tablet 4 Active Active Problems Problem Noted Date Diagnosed Date Depression Anxiety PCOS (polycystic ovarian syndrome) Immunizations Immunization Administration Dates Next Due TDAP Vaccine 09/17/2015 Family History Medical History Relation Name Comments No Known Problems Brother Abdirizak Mental Disorder, Other Father No Known Problems Maternal Aunt Ciara Other-comment Maternal Grandmother Mental Disorder, Other Mother Bipolar Disorder Sister 1 Marina Depression Sister 1 Marina Bipolar Disorder Sister 2 Theodora Depression Sister 2 Theodora Relation Name Status Comments Brother Abdirizak Alive Father Alive Maternal Aunt Ciara Alive Maternal Grandmother Mother Alive Sister 1 Marina Alive Sister 2 Theodora Alive Social History Tobacco Use Types Packs/Day Years Used Date Smoking Tobacco: Every Day Cigarettes 0.3 12.3 Started: 12/27/2011 Smokeless Tobacco: Never Tobacco Cessation:Ready to Q uit: Not Asked; Counseling Given: Not Answered Alcohol Use Standard Drinks/Week Comments No 0 (1 standard drink = 0.6 oz pur e alcohol) Sexually Active Control Partners Comments Yes Comments No Sex and Gender Information Value Date Recorded Sex Assigned at Not on file Legal Sex Female 12:25 AM CDT Gender Identity Not on file Sexual Orientation Not on file Last Filed Vital Signs Vital Sign Reading Time Taken Comments Blood Pressure 106/85 10/07/2023 2:15 AM CDT Pulse 70 10/07/2023 2:15 AM CDT Temperature 36.4 ??C (97.5 ??F) 10/07/2023 2:15 AM CD T Respiratory Rate 16 10/07/2023 2:15 AM CDT Oxygen Saturation 99% 10/07/2023 2:15 AM CDT Inhaled Oxygen Concentration - - Weight 88.5 kg (195 lb) 10/06/2023 11:36 PM CDT Height 157.5 cm (5' 2 ) 10/06/2023 11:36 PM CDT Body Mass Index 35.67 10/06/2023 11:36 PM CDT Plan of Treatment Health Maintenance Due Date Last Done Comments Hepatitis C Virus (HCV) Screening 1995 Pneumococcal Immunization Combined (1 of 2 - PCV) 06/20/2014 Influenza Immunization (#1) 2023 10/0 03/2021, 03/19/2021, 01/31/2020, Additional history exists SARS-COV-2 Immunization ( season) 2023 11/14/2020, 10/24/2020 Td Immunization Every 10 Years (Adults With 1 Tdap) 02/06/2031 02/06/2021, 09/17/2015, 01/12/2011 Respiratory Syncytial Virus (RSV) Immunization (Adult) (1 - 1-dose 75+ series) 06/20/2070 Hepatitis B Immunization Completed 997, [birth year] Meningococcal Immunization (ACWY) Aged Out No longer eligible based on patient's age to complete this topic Rotavirus Immunization Aged Out No lo nger eligible based on patient's age to complete this topic Insurance MEDICAID [employer] Advance Directives * Full Code (Latest Code Status on File) Date Activated Date Inactivated Comments 09/10/2015 10:53 AM 09/10/2015 6:36 PM CPR-Full Tr eatment: FULL ARREST: Attempt Resuscitation/CPR wit intubation and mechanical ventilation. PRE-ARREST: Use entire range of life support measures to stabilize the patient. * Full Code Date Activated Date Inactivated Comments 09/07/2015 11:24 PM 09/08/2015 3:36 AM CPR-Full Tr eatment: FULL ARREST: Attempt Resuscitation/CPR wit intubation and mechanical ventilation. PRE-ARREST: Use entire range of life support measures to stabilize the patient. * Full Code Date Activated Date Inactivated Comments 08/07/2015 10:43 AM 08/07/2015 2:25 PM CPR-Full Tr eatment: FULL ARREST: Attempt Resuscitation/CPR wit intubation and mechanical ventilation. PRE-ARREST: Use entire range of life support measures to stabilize the patient. * Full Code Date Activated Date Inactivated Comments 06/27/2015 11:08 AM 06/27/2015 4:16 PM Full Code: FULL ARREST: Attempt Resuscitation/CPR and use intubation and mechanical ventilation as indicated. PRE-ARREST: Use all measures to stabilize patient. Care Teams Physical Director Relationship Specialty Start Date End Date Augusto Barnhart MD [address] [place] [address] PCP - General Family Medicine 03/08/20 Kay Velasquez MD Consulting Physician Obstetrics & Gynecology 02/19/17
--- OUTSIDE RECORDS SUMMARY | 2024-04-24 14:56 | XMS_ITS | Clinical Summary ---
Author Organization [facility] Address [address] [place] [address] Phone Care Team Providers Care Stone Setter Metal Optical Frames Name Role Phone ALANA HERNANDEZ, ROBERTA Espino Primary Care Provider [phone] Reason for Visit and Chief Complaint [Patient Encounter] Plan of Treatment Pending Tests Order Diagnosis Results Due Ordering P rovider Lab HCG, Serum, Quant 03/24/17 ROBERTA WARNER MD Last Documented On 8 11:18AM ; [facility] Assessments Includes: Assessments from this encounter No Assessments Recorded Medical Equipment - Implanted Devices Includes: Current Devices No Medical Equipment Recorded Medications Administered Includes: Administered Medications from this encounter No Administered Medications Recorded Results Includes: Results discussed during this encounter No Results Recorded For Specified Dates History of Present Illness Includes: History of Present Illness from this encounter No History of Present Illness Recorded Social History No Social History Recorded - Smoking Status Unknown Medical History Includes: Medical History addressed during this encounter No Medical History Recorded Family History Includes: Family History addressed during this encounter No Family History Recorded Review of Systems Includes: Review of Systems from this encounter No Review of Systems Recorded Mental Status Includes: Mental Status from this encounter No Mental Status Recorded Functional Status Includes: Functional Status from this encounter No Functional Status Recorded Physical Exam Includes: Physical Exam from this encounter No Physical Exam Recorded Allergies Includes: Active Allergies No Known Allergies Encounters Encounter Provider Location Date Check-In Time Check-Out Time Diagnosis [Patient Encounter] ROBERTA WARNER MD 03/24/2017 2:59PM 11:59PM Insurance Includes: Active Insurance Policies Plan Name Member ID Group # Subscriber Relationship Effect melvin Dates 1 - [facility] [id number] DAVID ALBRECHT Child 2 - MEDICAID - [facility] [id number] JONNIE ALBRECHT Self Clinical Notes Includes: Clinical Notes from this encounter No Clinical Notes Recorded
--- OUTSIDE RECORDS SUMMARY | 2024-04-24 14:56 | XMS_ITS | Clinical Summary ---
Author Organization [facility] Address [address] [place] [address] Phone Care Team Providers Care Intellectual Property Manager Name Role Phone ALANA HERNANDEZ, ROBERTA Espino Primary Care Provider [phone] Reason for Visit and Chief Complaint NO SHOW Plan of Treatment No Plan of Treatment Recorded Assessments Includes: Assessments from this encounter No [...] Location Date Check-In Time Check-Out Time Diagnosis NO SHOW ROBERTA WARNER MD [facility] AUTHORIZATION COORDINATOR 08/16/2017 1:20PM 11:59PM Insurance Includes: Active Insurance Policies Plan Name Member ID Group # Subscriber Relationship Effect melvin Dates 1 - R [id number] DAVID ALBRECHT Child 2 - MEDICAID - NON [facility] [id number] JONNIE Clarissa ALBRECHT Self Clinical Notes Includes: Clinical Notes from this encounter No Clinical Notes Recorded
--- OUTSIDE RECORDS SUMMARY | 2024-04-24 14:56 | XMS_ITS | Clinical Summary ---
Author Organization [facility] Address [address] [place] [address] Phone Care Team Providers Care Tile Sorter Name Role Phone ALANA HERNANDEZ, ROBERTA Espino Primary Care Provider [phone] Reason for Visit and Chief Complaint * PHONE CALL Plan of Treatment No Plan of Treatment [...] Location Date Check-In Time Check-Out Time Diagnosis * PHONE CALL ROBERTA WARNER MD 08/05/2017 8:07AM 11:59PM Insurance Includes: Active Insurance Policies Plan Name Member ID Group # Subscriber Relationship Effect melvin Dates 1 - R [id number] DAVID ALBRECHT Child 2 - MEDICAID - NON [facility] [id number] JONNIEJoan ALBRECHT Self Clinical Notes Includes: Clinical Notes from this encounter No Clinical Notes Recorded
--- OUTSIDE RECORDS SUMMARY | 2024-04-24 14:57 | XMS_ITS ---
Author Organization [facility] Address [address] [place] [address] Phone Care Team Providers Care Academic Assistant Name Role Phone ROBERTA WARNER MD Primary Care Provider [phone] Problems Includes: Active, inactive, and resolved Problems All Visits Onset Date Resolved Date Provider Condition S tatus History of Abnormal Pap Smear 04/12/2015 Unknown ROBERTA WARNER MD Resolved Last Documented On 06/11/2016 3:00PM ; [facility] Note: was Closed. History of Depression 04/12/2015 Unknown ROBERTA WARNER MD Resolved Last Documented On 06/11/2016 3:00PM ; [facility] Note: was Closed. Tobacco Use 04/12/2015 Unknown ROBERTA WARNER MD Resolve d Last Documented On 06/11/2016 3:00PM ; [facility] Note: was Closed. Tobacco Use 04/12/2015 Unknown ROBERTA WARNER MD Resolve d Last Documented On 06/11/2016 3:00PM ; [facility] Note: was Closed. Plan of Treatment Findings Encounter Date Ordered Clinical summary pro vided to patient RETURN OB EXAM with ROSSI Rosie REESE VALARIE-BC 08/15/2015 Last Documented On 6 3:42PM ; [facility] Ordered Clinical summary pro vided to patient RETURN OB EXAM with ROSSI Rosie REESE VALARIE-BC 05/16/2015 Last Documented On 6 11:02AM ; [facility] Instructions to patient Instructions for patient : B reast Self Exam discussed Last Documented On 7 4:39PM ; [facility] Instructions for patient : K eep the area around the vulva dry. Allow the area to have exposure to air. Avoid irritants such as fabric softeners and perfumed soaps.~ Last Documented On 5 2:49PM ; [facility] Education and Decision Aids were provided during visit for: Patient counseling : Use of oral contraceptives discussed in detail including rare occurrence of heart attack, stroke, and leg clots. Patient understands that smoking increases the risk of serious side effects with any steroid-based contraceptive method Last Documented On 7 4:41PM ; [facility] STD screening offered and de clined Last Documented On 7 4:39PM ; [facility] INFORMED CONSENT DISCUSSION: Colposcopy was discussed in detail including risk of post procedure bleeding. Patient is not to have intercourse for 5 days following the procedure. Patient expressed understanding of the above and consented to the procedure Last Documented On 6 9:40AM ; [facility] Patient counseling : Use of oral contraceptives discussed in detail including rare occurrence of heart attack, stroke, and leg clots. Patient understands that smoking increases the risk of serious side effects with any steroid-based contraceptive method Last Documented On 5 10:58AM ; [facility] Assessments Includes: Assessments for all patient encounters Findings Encounter Date Contraceptive management MED CHECK with ROBERTA JORDAN MD 10/12/2016 Last Documented On 7 4:54PM ; [facility] Labial abscess MED CHECK with ROBERTA WARNER MD 10/12/2016 Last Documented On 7 4:54PM ; [facility] Polycystic Ovarian Syndrome (PCOS) MED CHECK wit h ROBERTA WARNER MD 10/12/2016 Last Documented On 7 4:54PM ; [facility] Routine pelvic exam MED CHECK with ROBERTA WARNER MD 10/12/2016 Last Documented On 7 4:54PM ; [facility] Contraceptive management PROBLEM VISIT with ROBERTA WARNER MD 06/26/2016 Last Documented On 7 2:23PM ; [facility] Polycystic Ovarian Syndrome (PCOS) PROBLEM VISIT with ROBERTA WARNER MD 06/26/2016 Last Documented On 7 2:23PM ; [facility] Contraceptive management RECHECK with ROBERTA LOPEZ MD 06/23/2016 Last Documented On 7 10:51AM ; [facility] Menometrorrhagia RECHECK with ROBERTA WARNER MD 0 06/23/2016 Last Documented On 7 10:51AM ; [facility] Polycystic Ovarian Syndrome (PCOS) RECHECK with ROBERTA WARNER MD 06/23/2016 Last Documented On 7 10:51AM ; [facility] Contraceptive management: In sertion of IUD PROBLEM VISIT with ROBERTA WARNER MD 04/17/2016 Last Documented On 7 2:05PM ; [facility] Nonpuerperal galactorrhea PROBLEM VISIT with EWELINA WARNER MD 04/17/2016 Last Documented On 7 2:05PM ; [facility] Oligomenorrhea PROBLEM VISIT with ROBERTA WARNER MD 04/17/2016 Last Documented On 7 2:05PM ; [facility] Secondary amenorrhea PROBLEM VISIT with ROBERTA JORDAN MD 04/17/2016 Last Documented On 7 2:05PM ; [facility] depression POST VISIT with EWELINA WARNER MD 02/11/2016 Last Documented On 6 2:34PM ; [facility] Normal checkup (6 - 42 wk) RETURN OB EX AM with ROBERTA WARNER MD 08/29/2015 Last Documented On 6 4:19PM ; [facility] Normal checkup (6 - 42 wk) RETU RN OB EXAM with ROSSI CHOUDHURY 08/15/2015 Last Documented On 6 3:42PM ; [facility] Normal checkup (6 - 42 wk) [Pat ient Encounter] with ROBERTA WARNER MD 08/06/2015 Last Documented On 6 10:14AM ; [facility] Normal checkup (6 - 42 wk) RETURN OB EX AM with ROBERTA WARNER MD 08/01/2015 Last Documented On 6 9:47AM ; [facility] Normal checkup (6 - 42 wk) RETU RN OB EXAM with ROSSI CHOUDHURY 07/11/2015 Last Documented On 6 3:55PM ; [facility] Normal checkup (6 - 42 wk) * PHONE CALL with ROBERTA WARNER MD 06/27/2015 Last Documented On 6 11:00AM ; [facility] Normal checkup (6 - 42 wk) RETURN OB EX AM with ROBERTA WARNER MD 06/13/2015 Last Documented On 6 4:15PM ; [facility] Normal checkup (6 - 42 wk) RETU RN OB EXAM with ROSSI CHOUDHURY 05/16/2015 Last Documented On 6 11:02AM ; [facility] Assessment of abnormal Pap s mear: atypical squamous cells of undetermined significance COLPOSCOPY with ROBERTA WARNER MD 04/29/2015 Last Documented On 6 10:06AM ; [facility] Assessment of cervical high risk human papilloma virus DNA test was positive COLPOSCOPY with ROBERTA WARNER MD 04/29/2015 Last Documented On 6 10:06AM ; [facility] Normal checkup (6 - 42 wk) COLPOSCOPY w ith ROBERTA WARNER MD 04/29/2015 Last Documented On 6 10:06AM ; [facility] Normal checkup (6 - 42 wk) NEW OB EXAM with ROBERTA WARNER MD 04/12/2015 Last Documented On 6 4:19PM ; [facility] 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 MD 08/21/2014 Last Documented On 5 2:54PM ; [facility] Contraceptive management NEW EXPERIMENTAL PHYSICIST EXAM with ROBERTA WARNER MD 06/26/2014 Last Documented On 5 11:01AM ; [facility] Female pelvic pain NEW EXPERIMENTAL PHYSICIST EXAM with ROBERTA RODRIGUEZ MD 06/26/2014 Last Documented On 5 11:01AM ; [facility] Ovarian cyst NEW EXPERIMENTAL PHYSICIST EXAM with ROBERTA WARNER MD 06/26/2014 Last Documented On 5 11:01AM ; [facility] Instructions Includes: Instructions for all patient encounters Instructions to patient Instructions for patient : B reast Self Exam discussed Last Documented On 7 4:39PM ; [facility] Instructions for patient : K eep the area around the vulva dry. Allow the area to have exposure to air. Avoid irritants such as fabric softeners and perfumed soaps.~ Last Documented On 5 2:49PM ; [facility] Education and Decision Aids were provided during visit for: Patient counseling : Use of oral contraceptives discussed in detail including rare occurrence of heart attack, stroke, and leg clots. Patient understands that smoking increases the risk of serious side effects with any steroid-based contraceptive method Last Documented On 7 4:41PM ; [facility] STD screening offered and de clined Last Documented On 7 4:39PM ; [facility] INFORMED CONSENT DISCUSSION: Colposcopy was discussed in detail including risk of post procedure bleeding. Patient is not to have intercourse for 5 days following the procedure. Patient expressed understanding of the above and consented to the procedure Last Documented On 6 9:40AM ; [facility] Patient counseling : Use of oral contraceptives discussed in detail including rare occurrence of heart attack, stroke, and leg clots. Patient understands that smoking increases the risk of serious side effects with any steroid-based contraceptive method Last Documented On 5 10:58AM ; [facility] Medical Equipment - Implanted Devices Includes: Current and historical Devices No Medical Equipment Recorded Medications Includes: Current and historical Medications Past Medications on file NuvaRing 0.12-0.015MG/24HR V aginal Ring 08/06/2017 - 09/03/2017 Provider: ROBERTA WARNER MD Diagnosis: i ring vaginally X 3 weeks, remove, then insert new ring 1 week later Last Documented On 08/06/2017 12:13PM By ROBERTA WARNER MD ; [facility] Bactrim DS 800-160MG Oral Tablet 10/12/2016 - 10/23/19 Provider: ROBERTA WARNER MD Diagnosis: One tablet twice a day Last Documented On 10/12/2016 4:51PM By ROBERTA WARNER MD ; [facility] NuvaRing 0.12-0.015MG/24HR Vaginal Ring 10/12/2016 - 0 08/11/2017 Provider: Diagnosis: Last Documented On 8 2:31PM By SUJATA ROSENBAUM ; [facility] NuvaRing 0.12-0.015MG/24HR V aginal Ring 10/12/2016 - 08/06/2017 Provider: ROBERTA WARNER MD Diagnosis: i ring vaginally X 3 weeks, remove, then insert new ring 1 week later Last Documented On 08/06/2017 12:04PM By ROBERTA WARNER MD ; [facility] MetFORMIN HCl 500MG Oral Tablet 06/26/2016 - 7 Provider: ROBERTA WARNER MD Diagnosis: i po in am X 1-2 weeks then increase to i po bid Last Documented On 06/26/2016 2:26PM By ROBERTA WARNER MD ; [facility] NuvaRing 0.12-0.015MG/24HR V aginal Ring 06/26/2016 - 10/12/2016 Provider: ROBERTA WARNER MD Diagnosis: i ring vaginally X 3 weeks, remove, then insert new ring 1 week later Last Documented On 10/12/2016 4:49PM By ROBERTA WARNER MD ; [facility] Paragard Intrauterine Copper Intrauterine device 06/23/2016 - 06/26/2016 Provider: Diagnosis: Last Documented On 06/26/2016 1:57PM By GIANNI CARDENAS LPN ; [facility] CeleXA 20 MG Tablet 02/11/2016 - 03/12/2016 Provider: ROBERTA WARNER MD 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, NEC One tablet daily Last Documented On 02/11/2016 2:33PM By ROBERTA WARNER MD ; [facility] Classic 28-0.8 MG Tablet 04/12/2015 - 016 Provider: Diagnosis: Last Documented On 02/11/2016 2:12PM By NATIVIDAD ROSENBAUM ; [facility] Sulfamethoxazole-TMP DS 800- 160 MG Tablet 08/21/2014 - 08/28/2014 Provider: ROBERTA WARNER MD Diagnosis: One tablet twice a day Last Documented On 08/21/2014 2:47PM By ROBERTA WARNER MD ; [facility] Aviane 0.1-20 MG-MCG Tablet 06/26/2014 - 10/16/2014 Pr ovider: ROBERTA WARNER MD Diagnosis: One tablet daily Last Documented On 06/26/2014 10:58AM By ROBERTA WARNER MD ; [facility] Medications Administered Includes: Administered Medications in patient's chart No Administered Medications Recorded Results Includes: Results from 04/24/2023 through 04/24/2024 No Results Recorded For Specified Dates History of Present Illness History of Present Illness not supported for this document type No History of Present Illness Recorded Social History Description Last Updated In monogamous relationship 10/12/2016 Last Documented On 7 4:54PM ; [facility] Sexually active 10/12/2016 Last Documented On 7 4:54PM ; [facility] Cigarette smoking 10/12/2016 Last Documented On 7 4:54PM ; [facility] Alcohol use: 2 drinks or less per day oc c 06/26/2016 Last Documented On 7 2:23PM ; [facility] Smoking status : Current everyday smoker 04/17/2016 Last Documented On 7 2:05PM ; [facility] Sexually active 8 weeks 02/10 Last Documented On 6 2:34PM ; [facility] Tobacco use 04/15/2015 Last Documented On 6 4:19PM ; [facility] Medical History Includes: Medical History in patient's chart Description Last Updated Contraception: Nuvaring 10/12/2016 Last Documented On 7 4:54PM ; [facility] LMP: 10/04/2016 10/12/2016 Last Documented On 7 4:54PM ; [facility] Aborta 1 10/12/2016 Last Documented On 7 4:54PM ; [facility] 2 10/12/2016 Last Documented On 7 4:54PM ; [facility] Last pap smear date 04/12/2015 10/12/2016 Last Documented On 7 4:54PM ; [facility] Para 1 10/12/2016 Last Documented On 7 4:54PM ; [facility] Infant is bottle-feeding 02/11/2016 Last Documented On 6 2:34PM ; [facility] Baby thriving boy Ricardo 02/11/2016 Last Documented On 6 2:34PM ; [facility] History of Abnormal Pap Smear LSIL 201408/15/2015 Last Documented On 6 3:42PM ; [facility] History of depression no meds for 1 1/2 years 08/15/2015 Last Documented On 6 3:42PM ; [facility] Previous hospitalizations [facility] depression 08/15/2015 Last Documented On 6 3:42PM ; [facility] Result: abnormal lsil 08/15/2015 Last Documented On 6 3:42PM ; [facility] Family History Includes: Family History in patient's chart Description Last Updated Family history of diabetes mellitus carlos hughes aunt 06/26/2014 Last Documented On 5 11:01AM ; [facility] Review of Systems Review of Systems not supported for this document type No Review of Systems Recorded Mental Status No Mental Status Recorded Functional Status No Functional Status Recorded Physical Exam Physical Exam not supported for this document type No Physical Exam Recorded Allergies Includes: Active, inactive, and resolved Allergies No Known Allergies Insurance Includes: Active Insurance Policies Plan Name Member ID Group # Subscriber Relationship Effect melvin Dates 1 - [facility] [id number] DAVID ALBRECHT [place] Child 2 - MEDICAID - [facility] [id number] JONNIE ALBRECHT Self Clinical Notes Includes: Signed Clinical Notes starting from 04/17/2022 No Clinical Notes Recorded
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
--- OUTSIDE RECORDS SUMMARY | 2024-04-24 14:57 | XMS_ITS | Clinical Summary ---
Author Organization [facility] Address [address] [place] [address] Phone Care Team Providers Care Guest Services Ambassador Name Role Phone ROBERTA WARNER MD Primary Care Provider [phone] Reason for Visit and Chief Complaint * PHONE CALL Plan of Treatment No Plan of Treatment Recorded Assessments Includes: Assessments from this encounter No Assessments Recorded Medical Equipment - Implanted Devices Includes: Current Devices No Medical Equipment Recorded Medications Includes: Medications discussed during this encounter and other current Medications Past Medications on file NuvaRing 0.12-0.015MG/24HR V aginal Ring 08/06/2017 - 09/03/2017 Provider: ROBERTA WARNER MD Diagnosis: i ring vaginally X 3 weeks, remove, then insert new ring 1 week later Last Documented On 08/06/2017 12:13PM By ROBERTA WARNER MD ; [facility] Bactrim DS 800-160MG Oral Tablet 10/12/2016 - 10/23/19 17 Provider: ROBERTA WARNER MD Diagnosis: One tablet twice a day Last Documented On 10/12/2016 4:51PM By ROBERTA WARNER MD ; [facility] MetFORMIN HCl 500MG Oral Tablet 06/26/2016 - 7 Provider: ROBERTA WARNER MD Diagnosis: i po in am X 1-2 weeks then increase to i po bid Last Documented On 06/26/2016 2:26PM By ROBERTA WARNER MD ; [facility] CeleXA 20 MG Tablet 02/11/2016 - 03/12/2016 Provider: ROBERTA WARNER MD 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, NEC One tablet daily Last Documented On 02/11/2016 2:33PM By ROBERTA WARNER MD ; [facility] Sulfamethoxazole-TMP DS 800- 160 MG Tablet 08/21/2014 - 08/28/2014 Provider: ROBERTA WARNER MD Diagnosis: One tablet twice a day Last Documented On 08/21/2014 2:47PM By ROBERTA WARNER MD ; [facility] Aviane 0.1-20 MG-MCG Tablet 06/26/2014 - 10/16/2014 Pr ovider: ROBERTA WARNER MD Diagnosis: One tablet daily Last Documented On 06/26/2014 10:58AM By ROBERTA WARNER MD ; [facility] Medications Administered Includes: Administered Medications from this [...] Includes: Family History addressed during this encounter Description Last Updated Family history of diabetes mellitus carlos downeyl aunt 06/26/2014 Last Documented On 7 2:31PM ; [facility] Review of Systems Includes: Review of Systems [...] Diagnosis * PHONE CALL ROBERTA WARNER MD 03/24/2017 2:30PM 11:59PM Insurance Includes: Active Insurance Policies Plan Name Member ID Group # Subscriber Relationship Effect melvin Dates 1 - R [id number] TRENA DAVID F Child 2 - MEDICAID - NON [facility] [id number] JONNIE ALBRECHT Self Clinical Notes Includes: Clinical Notes from this encounter No Clinical Notes Recorded
--- OUTSIDE RECORDS SUMMARY | 2024-04-24 14:57 | XMS_ITS | Clinical Summary ---
Author Organization [facility] Address [address] [place] [address] Phone Care Team Providers Care Vice President Integrated Name Role Phone ROBERTA WARNER MD Primary [...] Allergies Includes: Active Allergies No Known Allergies Insurance Includes: Active Insurance Policies Plan Name Member ID Group # Subscriber Relationship Effect melvin Dates 1 - R [id number] DAVID ALBRECHT Child 2 - MEDICAID - NON [facility] [id number] JONNIE ALBRECHT Self Clinical Notes Includes: Clinical Notes from this encounter No Clinical Notes Recorded
--- OUTSIDE RECORDS SUMMARY | 2024-04-24 15:01 | XMS_ITS ---
Author Organization [facility] Address [address] [place] [address] Phone Care Team Providers Care Obstetrics Gynecology Md Name Role Phone ROBERTA WARNER MD Primary Care Provider [phone] Problems Includes: Active, inactive, and resolved Problems All Visits Onset Date Resolved Date Provider Condition S tatus History of Abnormal Pap Smear 04/12/2015 Unknown ROBERTA WARNER MD Resolved Last Documented On 06/11/2016 3:00PM ; [facility] Note: was Closed. History of Depression 04/12/2015 Unknown ROBERTA WARNER MD Resolved Last Documented On 06/11/2016 3:00PM ; [facility] Note: was Closed. Tobacco Use 04/12/2015 Unknown ROBERTA WARNER MD Resolve d Last Documented On 06/11/2016 3:00PM ; [facility] Note: was Closed. Tobacco Use 04/12/2015 Unknown ROBERTA WARNER MD Resolve d Last Documented On 06/11/2016 3:00PM ; [facility] Note: was Closed. Plan of Treatment Findings Encounter Date Ordered Clinical summary pro vided to patient RETURN OB EXAM with ROSSI Rosie REESE VALARIE-BC 08/15/2015 Last Documented On 6 3:42PM ; [facility] Ordered Clinical summary pro vided to patient RETURN OB EXAM with ROSSI Rosie REESE VALARIE-BC 05/16/2015 Last Documented On 6 11:02AM ; [facility] Instructions to patient Instructions for patient : B reast Self Exam discussed Last Documented On 7 4:39PM ; [facility] Instructions for patient : K eep the area around the vulva dry. Allow the area to have exposure to air. Avoid irritants such as fabric softeners and perfumed soaps.~ Last Documented On 5 2:49PM ; [facility] Education and Decision Aids were provided during visit for: Patient counseling : Use of oral contraceptives discussed in detail including rare occurrence of heart attack, stroke, and leg clots. Patient understands that smoking increases the risk of serious side effects with any steroid-based contraceptive method Last Documented On 7 4:41PM ; [facility] STD screening offered and de clined Last Documented On 7 4:39PM ; [facility] INFORMED CONSENT DISCUSSION: Colposcopy was discussed in detail including risk of post procedure bleeding. Patient is not to have intercourse for 5 days following the procedure. Patient expressed understanding of the above and consented to the procedure Last Documented On 6 9:40AM ; [facility] Patient counseling : Use of oral contraceptives discussed in detail including rare occurrence of heart attack, stroke, and leg clots. Patient understands that smoking increases the risk of serious side effects with any steroid-based contraceptive method Last Documented On 5 10:58AM ; [facility] Assessments Includes: Assessments for all patient encounters Findings Encounter Date Contraceptive management MED CHECK with ROBERTA JORDAN MD 10/12/2016 Last Documented On 7 4:54PM ; [facility] Labial abscess MED CHECK with ROBERTA WARNER MD 10/12/2016 Last Documented On 7 4:54PM ; [facility] Polycystic Ovarian Syndrome (PCOS) MED CHECK wit h ROBERTA WARNER MD 10/12/2016 Last Documented On 7 4:54PM ; [facility] Routine pelvic exam MED CHECK with ROBERTA WARNER MD 10/12/2016 Last Documented On 7 4:54PM ; [facility] Contraceptive management PROBLEM VISIT with ROBERTA WARNER MD 06/26/2016 Last Documented On 7 2:23PM ; [facility] Polycystic Ovarian Syndrome (PCOS) PROBLEM VISIT with ROBERTA WARNER MD 06/26/2016 Last Documented On 7 2:23PM ; [facility] Contraceptive management RECHECK with ROBERTA LOPEZ MD 06/23/2016 Last Documented On 7 10:51AM ; [facility] Menometrorrhagia RECHECK with ROBERTA WARNER MD 0 06/23/2016 Last Documented On 7 10:51AM ; [facility] Polycystic Ovarian Syndrome (PCOS) RECHECK with ROBERTA WARNER MD 06/23/2016 Last Documented On 7 10:51AM ; [facility] Contraceptive management: In sertion of IUD PROBLEM VISIT with ROBERTA WARNER MD 04/17/2016 Last Documented On 7 2:05PM ; [facility] Nonpuerperal galactorrhea PROBLEM VISIT with EWELINA WARNER MD 04/17/2016 Last Documented On 7 2:05PM ; [facility] Oligomenorrhea PROBLEM VISIT with ROBERTA WARNER MD 04/17/2016 Last Documented On 7 2:05PM ; [facility] Secondary amenorrhea PROBLEM VISIT with ROBERTA JORDAN MD 04/17/2016 Last Documented On 7 2:05PM ; [facility] depression POST VISIT with EWELINA WARNER MD 02/11/2016 Last Documented On 6 2:34PM ; [facility] Normal checkup (6 - 42 wk) RETURN OB EX AM with ROBERTA WARNER MD 08/29/2015 Last Documented On 6 4:19PM ; [facility] Normal checkup (6 - 42 wk) RETU RN OB EXAM with ROSSI CHOUDHURY 08/15/2015 Last Documented On 6 3:42PM ; [facility] Normal checkup (6 - 42 wk) [Pat ient Encounter] with ROBERTA WARNER MD 08/06/2015 Last Documented On 6 10:14AM ; [facility] Normal checkup (6 - 42 wk) RETURN OB EX AM with ROBERTA WARNER MD 08/01/2015 Last Documented On 6 9:47AM ; [facility] Normal checkup (6 - 42 wk) RETU RN OB EXAM with ROSSI CHOUDHURY 07/11/2015 Last Documented On 6 3:55PM ; [facility] Normal checkup (6 - 42 wk) * PHONE CALL with ROBERTA WARNER MD 06/27/2015 Last Documented On 6 11:00AM ; [facility] Normal checkup (6 - 42 wk) RETURN OB EX AM with ROBERTA WARNER MD 06/13/2015 Last Documented On 6 4:15PM ; [facility] Normal checkup (6 - 42 wk) RETU RN OB EXAM with ROSSI CHOUDHURY 05/16/2015 Last Documented On 6 11:02AM ; [facility] Assessment of abnormal Pap s mear: atypical squamous cells of undetermined significance COLPOSCOPY with ROBERTA WARNER MD 04/29/2015 Last Documented On 6 10:06AM ; [facility] Assessment of cervical high risk human papilloma virus DNA test was positive COLPOSCOPY with ROBERTA WARNER MD 04/29/2015 Last Documented On 6 10:06AM ; [facility] Normal checkup (6 - 42 wk) COLPOSCOPY w ith ROBERTA WARNER MD 04/29/2015 Last Documented On 6 10:06AM ; [facility] Normal checkup (6 - 42 wk) NEW OB EXAM with ROBERTA WARNER MD 04/12/2015 Last Documented On 6 4:19PM ; [facility] 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 MD 08/21/2014 Last Documented On 5 2:54PM ; [facility] Contraceptive management NEW CLINICAL ANALYST EXAM with ROBERTA WARNER MD 06/26/2014 Last Documented On 5 11:01AM ; [facility] Female pelvic pain NEW CLINICAL ANALYST EXAM with ROBERTA RODRIGUEZ MD 06/26/2014 Last Documented On 5 11:01AM ; [facility] Ovarian cyst NEW CLINICAL ANALYST EXAM with ROBERTA WARNER MD 06/26/2014 Last Documented On 5 11:01AM ; [facility] Instructions Includes: Instructions for all patient encounters Instructions to patient Instructions for patient : B reast Self Exam discussed Last Documented On 7 4:39PM ; [facility] Instructions for patient : K eep the area around the vulva dry. Allow the area to have exposure to air. Avoid irritants such as fabric softeners and perfumed soaps.~ Last Documented On 5 2:49PM ; [facility] Education and Decision Aids were provided during visit for: Patient counseling : Use of oral contraceptives discussed in detail including rare occurrence of heart attack, stroke, and leg clots. Patient understands that smoking increases the risk of serious side effects with any steroid-based contraceptive method Last Documented On 7 4:41PM ; [facility] STD screening offered and de clined Last Documented On 7 4:39PM ; [facility] INFORMED CONSENT DISCUSSION: Colposcopy was discussed in detail including risk of post procedure bleeding. Patient is not to have intercourse for 5 days following the procedure. Patient expressed understanding of the above and consented to the procedure Last Documented On 6 9:40AM ; [facility] Patient counseling : Use of oral contraceptives discussed in detail including rare occurrence of heart attack, stroke, and leg clots. Patient understands that smoking increases the risk of serious side effects with any steroid-based contraceptive method Last Documented On 5 10:58AM ; [facility] Medical Equipment - Implanted Devices Includes: Current and historical Devices No Medical Equipment Recorded Medications Includes: Current and historical Medications Past Medications on file NuvaRing 0.12-0.015MG/24HR V aginal Ring 08/06/2017 - 09/03/2017 Provider: ROBERTA WARNER MD Diagnosis: i ring vaginally X 3 weeks, remove, then insert new ring 1 week later Last Documented On 08/06/2017 12:13PM By ROBERTA WARNER MD ; [facility] Bactrim DS 800-160MG Oral Tablet 10/12/2016 - 10/23/19 Provider: ROBERTA WARNER MD Diagnosis: One tablet twice a day Last Documented On 10/12/2016 4:51PM By ROBERTA WARNER MD ; [facility] NuvaRing 0.12-0.015MG/24HR Vaginal Ring 10/12/2016 - 0 08/11/2017 Provider: Diagnosis: Last Documented On 8 2:31PM By SUJATA ROSENBAUM ; [facility] NuvaRing 0.12-0.015MG/24HR V aginal Ring 10/12/2016 - 08/06/2017 Provider: ROBERTA WARNER MD Diagnosis: i ring vaginally X 3 weeks, remove, then insert new ring 1 week later Last Documented On 08/06/2017 12:04PM By ROBERTA WARNER MD ; [facility] MetFORMIN HCl 500MG Oral Tablet 06/26/2016 - 7 Provider: ROBERTA WARNER MD Diagnosis: i po in am X 1-2 weeks then increase to i po bid Last Documented On 06/26/2016 2:26PM By ROBERTA WARNER MD ; [facility] NuvaRing 0.12-0.015MG/24HR V aginal Ring 06/26/2016 - 10/12/2016 Provider: ROBERTA WARNER MD Diagnosis: i ring vaginally X 3 weeks, remove, then insert new ring 1 week later Last Documented On 10/12/2016 4:49PM By ROBERTA WARNER MD ; [facility] Paragard Intrauterine Copper Intrauterine device 06/23/2016 - 06/26/2016 Provider: Diagnosis: Last Documented On 06/26/2016 1:57PM By GIANNI CARDENAS LPN ; [facility] CeleXA 20 MG Tablet 02/11/2016 - 03/12/2016 Provider: ROBERTA WARNER MD 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, NEC One tablet daily Last Documented On 02/11/2016 2:33PM By ORBERTA WARNER MD ; [facility] Classic 28-0.8 MG Tablet 04/12/2015 - 016 Provider: Diagnosis: Last Documented On 02/11/2016 2:12PM By NATIVIDAD ROSENBAUM ; [facility] Sulfamethoxazole-TMP DS 800- 160 MG Tablet 08/21/2014 - 08/28/2014 Provider: ROBERTA WARNER MD Diagnosis: One tablet twice a day Last Documented On 08/21/2014 2:47PM By ROBERTA WARNER MD ; [facility] Aviane 0.1-20 MG-MCG Tablet 06/26/2014 - 10/16/2014 Pr ovider: ROBERTA WARNER MD Diagnosis: One tablet daily Last Documented On 06/26/2014 10:58AM By ROBERTA WARNER MD ; [facility] Medications Administered Includes: Administered Medications in patient's chart No Administered Medications Recorded Results Includes: Results from 04/24/2023 through 04/24/2024 No Results Recorded For Specified Dates History of Present Illness History of Present Illness not supported for this document type No History of Present Illness Recorded Social History Description Last Updated In monogamous relationship 10/12/2016 Last Documented On 7 4:54PM ; [facility] Sexually active 10/12/2016 Last Documented On 7 4:54PM ; [facility] Cigarette smoking 10/12/2016 Last Documented On 7 4:54PM ; [facility] Alcohol use: 2 drinks or less per day oc c 06/26/2016 Last Documented On 7 2:23PM ; [facility] Smoking status : Current everyday smoker 04/17/2016 Last Documented On 7 2:05PM ; [facility] Sexually active 8 weeks 02/10 Last Documented On 6 2:34PM ; [facility] Tobacco use 04/15/2015 Last Documented On 6 4:19PM ; [facility] Medical History Includes: Medical History in patient's chart Description Last Updated Contraception: Nuvaring 10/12/2016 Last Documented On 7 4:54PM ; [facility] LMP: 10/04/2016 10/12/2016 Last Documented On 7 4:54PM ; [facility] Aborta 1 10/12/2016 Last Documented On 7 4:54PM ; [facility] 2 10/12/2016 Last Documented On 7 4:54PM ; [facility] Last pap smear date 04/12/2015 10/12/2016 Last Documented On 7 4:54PM ; [facility] Para 1 10/12/2016 Last Documented On 7 4:54PM ; [facility] Infant is bottle-feeding 02/11/2016 Last Documented On 6 2:34PM ; [facility] Baby thriving boy Ricardo 02/11/2016 Last Documented On 6 2:34PM ; [facility] History of Abnormal Pap Smear LSIL 201408/15/2015 Last Documented On 6 3:42PM ; [facility] History of depression no meds for 1 1/2 years 08/15/2015 Last Documented On 6 3:42PM ; [facility] Previous hospitalizations [facility] depression 08/15/2015 Last Documented On 6 3:42PM ; [facility] Result: abnormal lsil 08/15/2015 Last Documented On 6 3:42PM ; [facility] Family History Includes: Family History in patient's chart Description Last Updated Family history of diabetes mellitus carlos hughes aunt 06/26/2014 Last Documented On 5 11:01AM ; [facility] Review of Systems Review of Systems not [...] Subscriber Relationship Effect melvin Dates 1 - [facility] [id number] DAVID ALBRECHT [place] Child 2 - MEDICAID - [facility] [id number] JONNIE ALBRECHT Self Clinical Notes Includes: Signed Clinical Notes starting from 04/17/2022 No Clinical Notes Recorded
--- OUTSIDE RECORDS SUMMARY | 2024-04-24 15:01 | XMS_ITS | Clinical Summary ---
Author Organization [facility] Address [address] [place] [address] Phone Care Team Providers Care Raschel Knitting Machine Operator Name Role Phone ALANA HERNANDEZ, ROBERTA Espino [...] Relationship Effect melvin Dates 1 - R [id number] DAVID ALBRECHT Child 2 - MEDICAID - NON [facility] [id number] JONNIEJoan ALBRECHT Self Clinical Notes Includes: Clinical Notes from this encounter No Clinical Notes Recorded
--- OUTSIDE RECORDS SUMMARY | 2024-04-24 15:01 | XMS_ITS | Clinical Summary ---
Author Organization [facility] Address [address] [place] [address] Phone Care Team Providers Care Healthcare Associate Name Role Phone ALANA HERNANDEZ, ROBERTA Espino Primary Care Provider [phone] Reason for Visit and Chief Complaint [Patient Encounter] Plan of Treatment Pending Tests Order Diagnosis Results Due Ordering P rovider Lab HCG, Serum, Quant 03/24/17 ROBERTA WARNER MD Last Documented On 8 11:18AM ; [facility] Assessments Includes: Assessments from this encounter No [...] Subscriber Relationship Effect melvin Dates 1 - [facility] [id number] DAVID ALBRECHT Child 2 - MEDICAID - [facility] [id number] JONNIE ALBRECHT Self Clinical Notes Includes: Clinical Notes from this encounter No Clinical Notes Recorded
--- OUTSIDE RECORDS SUMMARY | 2024-04-24 15:01 | XMS_ITS ---
Care Plan - [facility] Created on: April 24, 2024 TRENAJONNIE : 1995 Sex: Female Author Organization [facility] Address [address] [place] [address] Phone Care Team Providers Care Web Content Executive Name Role Phone ROBERTA WARNER MD Primary Care Provider [phone]
--- OUTSIDE RECORDS SUMMARY | 2024-04-24 15:01 | XMS_ITS | Clinical Summary ---
Author Organization [facility] Address [address] [place] [address] Phone Care Team Providers Care Merchandise Flow Manager Name Role Phone ALANA HERNANDEZ, ROBERTA [...] Time Diagnosis NO SHOW ROBERTA WARNER MD [facility] WEB SYSTEMS DEVELOPER 08/16/2017 1:20PM 11:59PM Insurance Includes: Active Insurance Policies Plan Name Member ID Group # Subscriber Relationship Effect melvin Dates 1 - R [id number] DAVID ALBRECHT Child 2 - MEDICAID - NON [facility] [id number] JONNIE Clarissa ALBRECHT Self Clinical Notes Includes: Clinical Notes from this encounter No Clinical Notes Recorded
--- OUTSIDE RECORDS SUMMARY | 2024-04-24 15:01 | XMS_ITS | Clinical Summary ---
Author Organization [facility] Address [address] [place] [address] Phone Care Team Providers Care Public Health Epidemiologist Name Role Phone ROBERTA WARNER MD Primary Care Provider [phone] Reason for Visit and Chief Complaint * [...] 08/06/2017 12:13PM By ROBERTA WARNER MD ; [facility] Bactrim DS 800-160MG Oral Tablet 10/12/2016 - 10/23/19 17 Provider: ROBERTA WARNER MD Diagnosis: One tablet twice a day Last Documented On 10/12/2016 4:51PM By ROBERTA WARNER MD ; [facility] MetFORMIN HCl 500MG Oral Tablet 06/26/2016 - 7 Provider: ROBERTA WARNER MD Diagnosis: i po in am X 1-2 weeks then increase to i po bid Last Documented On 06/26/2016 2:26PM By ROBERTA WARNER MD ; [facility] CeleXA 20 MG Tablet 02/11/2016 - 03/12/2016 Provider: ROBERTA WARNER MD 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, NEC One tablet daily Last Documented On 02/11/2016 2:33PM By ROBERTA WARNER MD ; [facility] Sulfamethoxazole-TMP DS 800- 160 MG Tablet 08/21/2014 - 08/28/2014 Provider: ROBERTA WARNER MD Diagnosis: One tablet twice a day Last Documented On 08/21/2014 2:47PM By ROBERTA WARNER MD ; [facility] Aviane 0.1-20 MG-MCG Tablet 06/26/2014 - 10/16/2014 Pr ovider: ROBERTA WARNER MD Diagnosis: One tablet daily Last Documented On 06/26/2014 10:58AM By ROBERTA WARNER MD ; [facility] Medications Administered Includes: Administered [...] 06/26/2014 Last Documented On 7 2:31PM ; [facility] Review of Systems Includes: Review [...] Relationship Effect melvin Dates 1 - R [id number] TRENA DAVID F Child 2 - MEDICAID - NON [facility] [id number] JONNIE ALBRECHT Self Clinical Notes Includes: Clinical Notes from this encounter No Clinical Notes Recorded
--- OUTSIDE RECORDS SUMMARY | 2024-04-24 15:02 | XMS_ITS | Clinical Summary ---
Author Organization [facility] Address [address] [place] [address] Phone Care Team Providers Care Air Tube Releaser Name Role Phone ROBERTA WARNER MD Primary [...] Relationship Effect melvin Dates 1 - R [id number] DAVID ALBRECHT Child 2 - MEDICAID - NON [facility] [id number] JONNIE ALBRECHT Self Clinical Notes Includes: Clinical Notes from this encounter No Clinical Notes Recorded
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
== END 2024-04-24 16:36 | disposition home or self-care (01) ==
PROVIDERS: Emergency Provider Registered Nurse; PCP Hospitalist
DX: J34.89 Other specified disorders of nose and nasal sinuses (principal); K21.9 Gastro-esophageal reflux disease without esophagitis; E28.2 Polycystic ovarian syndrome; F17.210 Nicotine dependence, cigarettes, uncomplicated; F17.290 Nicotine dependence, other tobacco product, uncomplicated
CPT/HCPCS: 70160; 99213; G0463

== ENCOUNTER 2024-05-12 09:56 | Emergency (ER) | payer OTHER, SELFPAY ==
--- OUTSIDE RECORDS SUMMARY | 2024-05-12 10:04 | XMS_ITS | Referral Summary ---
Author Organization [facility] Address [facility] [place] [address] Care Team Providers Care Water Resource Project Manager Name Role Phone Unavailable Primary Care Provider Unavailabl e Source Comments [facility],non-owned Affiliates and Associated Physician Practices is amultiple site organization consisting of ambulatory clinics and hospital sitesin [place], [place], [place] and [place]. This disclosure is being madepursuant to the Care Everywhere program and may not contain all information available regarding this patient. Last updated 17.[facility] Allergies No known active allergies Medications * [...] 81 09/28/2015 12:56 PM CDT Temperature 36.9 C (98.4 F) 09/28/2015 9:31 AM CDT Respiratory Rate 18 09/28/2015 12:5 6 PM [...]
--- OUTSIDE RECORDS SUMMARY | 2024-05-12 10:04 | XMS_ITS | Clinical Summary ---
Author Organization [facility] Address [address] [place] [address] Phone Care Team Providers Care Senior Electronics Design Engineer Name Role Phone ALANA HERNANDEZ, ROBERTA Espino [...] Time Diagnosis NO SHOW ROBERTA WARNER MD [facility] SAW BOSS 08/16/2017 1:20PM 11:59PM Insurance Includes: Active Insurance Policies Plan Name Member ID Group # Subscriber Relationship Effect emlvin Dates 1 - R [id number] DAVID ALBRECHT Child 2 - MEDICAID - NON [facility] [id number] JONNIE Clarissa ALBRECHT Self Clinical Notes Includes: Clinical Notes from this encounter No Clinical Notes Recorded
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
--- OUTSIDE RECORDS SUMMARY | 2024-05-12 10:05 | XMS_ITS | Clinical Summary ---
Author Organization [facility] Address [address] [place] [address] Phone Care Team Providers Care Data Governance Consultant Name Role Phone Kay Velasquez MD Unavailable [phone] Augusto Barnhart MD Primary Care Provider [phone] Allergies Active Allergy Reactions Criticality Noted Date [...] Date Smoking Tobacco: Every Day Cigarettes 0.3 12.4 Started: 12/27/2011 Smokeless Tobacco: Never Tobacco Cessation:Ready [...] 70 10/07/2023 2:15 AM CDT Temperature 36.4 C (97.5 F) 10/07/2023 2:15 AM CDT Respiratory Rate 16 10/07/2023 2:15 AM CDT [...] all measures to stabilize patient. Care Teams Data Governance Consultant Relationship Specialty Start Date End Date Augusto Barnhart MD [address] [place] [address] PCP - General Family Medicine 03/08/20 Kay Velasquez MD Consulting Physician Obstetrics & Gynecology 02/19/17
--- OUTSIDE RECORDS SUMMARY | 2024-05-12 10:05 | XMS_ITS | Clinical Summary ---
Author Organization [facility] Address [address] [place] [address] Phone Care Team Providers Care Cell Reliner Name Role Phone ALANA HERNANDEZ, ROBERTA Espino Primary Care Provider [phone] Reason for Visit and Chief Complaint [Patient Encounter] Plan of Treatment Pending Tests Order Diagnosis Results Due Ordering P rovider Lab HCG, Serum, Quant 03/24/17 ROBERTA WARNER MD Last Documented On 8 11:18AM ; [facility] Assessments Includes: Assessments from this encounter No [...] Subscriber Relationship Effect melvin Dates 1 - [facility] [id number] DAVID ALBRECHT Child 2 - MEDICAID - [facility] [id number] JONNIE ALBRECHT Self Clinical Notes Includes: Clinical Notes from this encounter No Clinical Notes Recorded
--- OUTSIDE RECORDS SUMMARY | 2024-05-12 10:05 | XMS_ITS | Patient Health Summary ---
Author Organization [facility] [employer] Address [address] [place] [address] Care Team Providers Care Shower Screen Installer Name Role Phone Unavailable Primary Care Provider Unavailabl e Note from [facility],non-owned Affiliates and Associated Physician Practices is amultiple site organization consisting of ambulatory clinics and hospital sitesin [place], [place], [place] and [place]. This disclosure is being madepursuant to the Care Everywhere program and may not contain all information available regarding this patient. Last updated 17.[facility] [employer] Allergies No known active allergies Medications * [...] membranes (PPROM) with unknown onset of labor ([facility]) * CBC W AUTO DIFFERENTIAL(Performed 09/10/2015) Performed for premature rupture of membranes (PPROM) with unknown onset of labor (HCC) * CHLAMYDIA + GC AMPLIFIED PROBE(Performed 09/10/2015) Performed for premature rupture of membranes (PPROM) with unknown onset of labor ([facility]) * CULTURE STREP B(Performed 09/10/2015) Performed for premature rupture of membranes (PPROM) with unknown onset of labor ([facility]) * CULTURE URINE(Performed 01/12/2014) Results * IMAGING/RADIOLOGY/XRAY RESULTS ORDER (10/02/2015 5:02 AM CDT) Anatomical Region Laterality Modality Other Narrative 10/02/2015 5:02 AM CDT Ordered by an unspecified provider. Scanned Document IMAGING * (ABNORMAL) CBC W/O DIFFERENTIAL (09/27/2015 11:20 AM CDT) WBC 13.7(H) 4.4 - 10.7 x10E9/L 09/27/2015 11:49 AM CDT [facility] RBC 4.13 3.80 - 5.20 x10E12/L 09/27/2015 11:49 AM CDT [facility] Hemoglobin 11.2(L) 12.0 - 15.6 gm/dL 09/27/2015 11:49 AM CDT [facility] Hematocrit 33.9(L) 35.9 - 45.5 % 09/27/2015 11:49 AM CDT [facility] MCV 82.1 80.7 - 98.3 fl 09/27/2015 11:49 AM CDT [facility] MCH 27.1 26.7 - 34.0 pg 09/27/2015 11:49 AM CDT [facility] MCHC 33.0 30.8 - 35.9 gm/dL 09/27/2015 11:49 AM CDT [facility] Platelet Count 173 153 - 416 x10E9/L 09/27/2015 11:49 AM CDT [facility] RDW-CV 13.5 12.1 - 14.9 % 09/27/2015 11:49 AM CDT [facility] MPV 11.5 9.4 - 12.9 fl 09/27/2015 11:49 AM CDT [facility] Blood BLOOD SPECIMEN / Unknown Lab Venipuncture / Unknown 09/27/2015 11:20 AM CDT 09/27/2015 11:38 AM CDT Meli Conti MD LAB - HEMATOLOGY OR DERABLES Performing Organization Address [facility]/State/[facility] Co de Phone Number [facility] [address], [place] [id number] * (ABNORMAL) BLOOD GASES CORD ART (ISTAT) (09/26/2015 7:43 PM CDT) pH Cord Arterial POCT 7.33 7.20 - 7.34 pH 09/26/2015 7:57 PM CDT [facility] pCO2 Cord Arterial POCT 44.9(L) 45 - 55 mmHg 09/26/2015 7:57 PM CDT [facility] pO2 Cord Arterial POCT 23 12 - 25 mmHg 09/26/2015 7:57 PM CDT [facility] HCO3 Cord Arterial POCT 23.6 15 - 29 mmol/L 09/26/2015 7:57 PM CDT [facility] BE Cord Arterial POCT -3(L) -2.9 - 8.3 mmol/L 09/26/2015 7:57 PM CDT [facility] TCO2 Cord Arterial POCT 25 mmol/L 09/26/2015 7:57 PM CDT [facility] O2 Saturation Cord Art % Calc POCT 34 % 09/26/2015 7:57 PM CDT [facility] Site CORD ART 09/26/2015 7:57 PM CDT [facility] Sample iSTAT CORD A 09/26/2015 7:57 PM CDT [facility] Blood CORD BLOOD SPECIMEN / Unknown 09/26/2015 7:43 PM CDT 09/26/2015 7:57 PM CDT Dewey Pete MD LAB - POINT OF CARE ORDERABLES Performing Organization Address City/State/[facility] Co de Phone Number [facility] [address] [place] [address] * NEURAXIAL BLOCK (09/26/2015 3:00 PM CDT) Narrative Silas Peoples APRN-CRNA - 09/26/2015 3:00 PM CDT Silas Peoples APRN-CRNA 09/26/2015 3:00 PM NEURAXIAL BLOCK Patient Location: OB Pre Procedure Indication: labor analgesia Anticoagulation /Antithrombosis Status Confirmed: Yes Preanesthetic Checklist: patient identified, IV checked, site marked, risks and benefits discussed, surgical consent verified, monitors and equipment checked, pre-op evaluation done, timeout performed, informed consent obtained and questions answered / anesthesia plan accepted Monitors: BP and Pulse Ox Patient Condition: awake Procedure Block Performed: epidural Prep: Betadine Sterile Field: sterile gloves, sterile field established, cap/hat and mask Approach: midline Skin Numbed with: lidocaine 1% Epidural Needle Type: Tuohy Needle Gauge: 18 Needle Length: 9 cm Placement Site: L4-L5 Number of Attempts: 1 Loss of ResistanceTechnique: saline Loss of Resistance: 6 cm Catheter Threaded to: 5 cm Catheter Length at Skin: 11 cm CSF Aspirated from Catheter: negative Blood Aspirated from Catheter: negative Test Dose: lidocaine 1.5% with 1 200 k epinephrine 3 ml at 09/26/2015 2:52 PM Test Dose Response: negative Local Anesthetic: lidocaine 2% 5 ml Epidural additive: fentanyl Events CSF return negative injection not painful no paresthesia no other event Degree of Difficulty: none Position Post Procedure: left uterine displacement Vital signs monitored and stable throughout. See Anesthesia Intraop record for details. heart tones monitored and stable throughout. Block Start Time: 09/26/2015 2:50 PM Block End Time: 09/26/2015 2:52 PM Block Performed by: Molly peoples CRNA Dewey Pete MD GENERAL ANESTHESIA O RDERABLES * (ABNORMAL) AMNISURE (09/26/2015 6:06 AM CDT) Only the most recent of2 resultswithin the time period is included. Amnisure (PAMG-1) Positive(A ) Negative 09/26/2015 6:27 AM CDT [facility] Fluid AMNIOTIC FLUID SPECIMEN / Unknown Collection / Unknown 09/26/2015 6:06 AM CDT 09/26/2015 6:16 AM CDT Narrative [facility] - 09/26/2015 6:27 AM CDT The [...] MD LAB - BODY FLUID ORD ERABLES [facility] [address], [place] [id number] * TYPE + SCREEN PANEL (09/25/2015 9:09 PM CDT) Only the most recent of2 resultswithin the time period is included. Pathologist [facility] ABO A 09/25/2015 10:07 PM CDT [facility] Rh Type Positive 09/25/2015 10:07 PM CDT [facility] Comment:History check perfor med. No retype required. Antibody Screen Negative 09/25/2015 10:07 PM CDT [facility] Miscellaneous samples (specimen) BLOOD SPECIMEN / Unknown Venipuncture / Unknown 09/25/2015 9:09 PM CDT 09/25/2015 9:15 PM CDT Mihaela Alicia MD LAB - BLOOD BANK ORD ERABLES [facility] [address] * (ABNORMAL) CBC W AUTO DIFFERENTIAL (09/25/2015 9:09 PM CDT) Only the most recent of2 resultswithin the time period is included. Pathologist [facility] WBC 13.5(H) 4.4 - 10.7 x10E9/L 09/25/2015 9:20 PM CDT [facility] WBC Corrected x10E9/L 09/25/2015 9:20 PM CDT [facility] RBC 4.32 3.80 - 5.20 x10E12/L 09/25/2015 9:20 PM CDT [facility] Hemoglobin 11.8(L) 12.0 - 15.6 gm/dL 09/25/2015 9:20 PM CDT [facility] Hematocrit 35.2(L) 35.9 - 45.5 % 09/25/2015 9:20 PM T [facility] MCV 81.5 80.7 - 98.3 fl 09/25/2015 9:20 PM CDT [facility] MCH 27.3 26.7 - 34.0 pg 09/25/2015 9:20 PM CDT [facility] MCHC 33.5 30.8 - 35.9 gm/dL 09/25/2015 9:20 PM CDT [facility] Platelet Count 197 153 - 416 x10E9/L 09/25/2015 9:20 PM T [facility] RDW-CV 13.5 12.1 - 14.9 % 09/25/2015 9:20 PM CDT [facility] MPV 11.5 9.4 - 12.9 fl 09/25/2015 9:20 PM CDT [facility] Neutrophils % 75.5(H) 44.0 - 73.0 % 09/25/2015 9:20 PM CDT [facility] Lymphocytes % 15.8(L) 20.0 - 43.0 % 09/25/2015 9:20 PM CDT [facility] Monocytes % 7.3 5.0 - 13.0 % 09/25/2015 9:20 PM CDT [facility] Eosinophils % 0.7 0.0 - 6.0 % 09/25/2015 9:20 PM CDT [facility] Basophils % 0.1 0.0 - 2.0 % 09/25/2015 9:20 PM CDT [facility] Immature Granulocytes 0.6 0 - 1 % 09/25/2015 9:20 PM CDT [facility] Neutrophil Absolute 10.18(H) 2.01 - 7.14 x10E9/L 09/25/2015 9:20 PM CDT [facility] Lymphocytes Absolute 2.13 1.07 - 3.94 x10E9/L 09/25/2015 9:20 PM CDT [facility] Monocytes Absolute 0.98 0.26 - 1.07 x10E9/L 09/25/2015 9:20 PM CDT [facility] Eosinophils Absolute 0.09 0 - 0.47 x10E9/L 09/25/2015 9:20 PM CDT [facility] Basophils Absolute 0.01 0 - 0.08 x10E9/L 09/25/2015 9:20 PM CDT [facility] Immature Granulocytes Absolute 0.08(H) 0.00 - 0.06 x10E9/L 09/25/2015 9:20 PM CDT [facility] nRBC Auto 0 /100 WBC 09/25/2015 9:20 PM CDT [facility] Blood BLOOD SPECIMEN / Unknown Venipuncture / Unknown 09/25/2015 9:09 PM CDT 09/25/2015 9:15 PM CDT Mihaela Alicia MD LAB - HEMATOLOGY ORD ERABLES [facility] [address] [place] [address] * (ABNORMAL) GLUCOSE - POINT OF CARE (09/24/2015 11:10 AM CDT) Only the most recent of59 resultswithin the time period is included. Glucose WB/POC 149(H) 70 - 106 mg/dL 09/24/2015 6:16 PM CDT [facility] Blood BLOOD SPECIMEN / Unknown 09/24/2015 11:10 AM CDT 09/24/2015 6:16 PM CDT Dewey Pete MD LAB - POINT OF CARE ORDERABLES Performing Organization Address City/[facility] Co de Phone Number [facility] [address] [place] [address] * GLUCOSE PROTEIN KETONE URINE - POINT [...] LAB - POINT OF CA RE ORDERABLES [facility] POCT TESTING [address] [place] [address] * SONOGRAM - COMPLETE (09/11/2015 10:59 AM CDT) Anatomical Region Laterality Modality Other 09/11/2015 10:5 9 AM CDT Narrative 09/11/2015 4:18 PM CDT [facility] PHONE: FAX: Pat. Name: JONNIE RAVI Pat. No: [id number] Study Date: 09/11/2015 10:59am , Age: 3 1995, 20 Pregnancies: 2, Para 0, Ab 1 Height: 62 in Weight: 148 lb LMP: Unknown GA by US: 32w1d GA Selected: 32w1d (Sonographic) DIPAK: 11/05/2015 Referring MD: Kay Velasquez MD Cat And Dog Bather: Miriam Fraga RDMS Hist/Ind: PPROM MEASUREMENTS & AGE GROWTH EVALUATION Measurement GA Range Srce %for GA Ratios ----- ---- ------- BPD 7.9 cm 31w4d ([id number]) Hadl BPD 42% FL/BPD 0.70 (0.71 - 0.87* HC 27.1 cm 29w4d (32r4x-68n1c) Hadl HC <05 FL/AC 0.19 (0.20 - 0.24* AC 28.7 cm 32w5d (21m2q-14f4n) Hadl AC 58% HC/AC 0.94 (0.95 - 1.14* FL 5.5 cm 29w1d (39r1v-41g9i) Hadl FL <05 CI 0.86 (0.70 - 0.86) HL 5.0 cm 29w0d (07s6c-92z5b) Brendan HL <05 GA for sonogram 32w1d (14p6m-20w1b) Weight Estimate: based on (BPD,AC) Hadlock Weight: 1731 gm (3123-9416) Hadlo : 3lbs, 13oz Normal: 1993 gm (5261-3873) Hadlo Wt% 25% for 32w1d Heart Rate: 128 bpm Amniotic Fluid Index: 12.1cm (08.5-24.3) Q1: 3.5cm Q2: 4.2cm Q3: 1.7cm Q4: 2.7cm CLINICAL SUMMARY Study Number: 1 A single fetus is identified in cephalic presentation. The measurements today are consistent with appropriate size for the DIPAK provided. The DIPAK selected is based on a prior ultrasound examination. The amniotic fluid volume is within normal limits. The placenta is posterior. No major malformations are seen today, within the limitations of ultrasound examination. Visualization of the anatomy is limited by gestational age, and by position. The patient was advised that ultrasound does not allow detection of all structural or chromosomal abnormalities. IMPRESSION: 1. Single, live, IUP at 32w1d 2. Appropriate size for the DIPAK provided 3. Normal amniotic fluid volume 4. Posterior placenta RECOMMEND: Follow up ultrasound as clinically indicated per the Inpatient Actuarial Clerk team. Thank you for allowing us the opportunity to care for your patient. cc: Inpatient at time of study Loraine Bhatti MD <Electronic Signature> 09/11/2015 04:18pm Dewey Pete MD [facility] ORDERABLES * DRUG SCREEN TOX URINE PANEL (09/10/2015 3:31 PM CDT) Amphetamines Screen Urine Not Detected Not Detected 09/10/2015 4:10 PM CDT [facility] Barbiturates Screen Urine Not Detected Not Detected 09/10/2015 4:10 PM CDT [facility] Benzodiazepines Screen Urine Not Detected Not Detected 09/10/2015 4:10 PM CDT [facility] Cannabinoids Screen Urine Not Detected Not Detected 09/10/2015 4:10 PM CDT [facility] Cocaine Screen Urine Not Detected Not Detected 09/10/2015 4:10 PM CDT [facility] Methadone Screen Urine Not Detected Not Detected 09/10/2015 4:10 PM CDT [facility] Opiate Screen Urine Not Detected Not Detected 09/10/2015 4:10 PM CDT [facility] Phencyclidine Screen Urine Not Detected Not Detected 09/10/2015 4:10 PM CDT [facility] Urine URINE / Unknown Collection / Unknown 09/10/2015 3:31 PM CDT 09/10/2015 3:43 PM CDT [facility] - 09/10/2015 4:10 PM CDT This drug screen is designed for MEDICAL purposes only. It is not to be used for legal purposes, including but not limited to worker's comp, police investigations, occupational issues, child custody, etc. Any positive result is only presumptive and must be confirmed with a separate confirmatory test ordered by the physician. Drug Screening Test Cutoff Values: AMPHETAMINES 1000 ng/mL BARBITURATES 200 ng/mL BENZODIAZEPINES 200 ng/mL CANNABINOIDS(THC) 50 ng/mL COCAINE 300 ng/mL METHADONE 300 ng/mL OPIATES 300 ng/mL PHENCYCLIDINE(PCP)25 ng/mL Maricruz Coley MD LAB - URINE CHEMI STRY ORDERABLES [facility] [address] [place] [address] * (ABNORMAL) COMPREHENSIVE METABOLIC PANEL (09/10/2015 3:29 PM CDT) [facility] Glucose 68(L) 74 - 106 mg/dL 09/10/2015 4:31 PM CDT [facility] Sodium 137 136 - 145 mmol/L 09/10/2015 4:31 PM CDT [facility] Potassium 3.9 3.5 - 5.1 mmol/L 09/10/2015 4:31 PM CDT [facility] Chloride 105 98 - 107 mmol/L 09/10/2015 4:31 PM CDT [facility] CO2 23 22 - 31 mmol/L 09/10/2015 4:31 PM CDT [facility] Calcium 8.7 8.5 - 10.1 mg/dL 09/10/2015 4:31 PM CDT [facility] Anion Gap 9 5 - 20 mmol/L 09/10/2015 4:31 PM CDT [facility] BUN 5(L) 7 - 21 mg/dL 09/10/2015 4:31 PM CDT [facility] Creatinine 0.53 0.50 - 1.30 mg/dL 09/10/2015 4:31 PM CDT [facility] Alkaline Phosphatase 97 38 - 126 U/L 09/10/2015 4:31 PM CDT [facility] ALT 24 12 - 78 U/L 09/10/2015 4:31 PM CDT [facility] AST 14 5 - 40 U/L 09/10/2015 4:31 PM CDT [facility] Protein Total 7.3 6.4 - 8.2 gm/dL 09/10/2015 4:31 PM CDT [facility] Albumin 2.6(L) 3.4 - 5.0 gm/dL 09/10/2015 4:31 PM CDT [facility] Bilirubin Total 0.4 0.2 - 1.0 mg/dL 09/10/2015 4:31 PM CDT [facility] eGFR by MDRD >60 >60 mL/min/1.7 3m2 09/10/2015 4:31 PM CDT [facility] eGFR by MDRD >60 >60 mL/min/1.7 3m2 09/10/2015 4:31 PM CDT [facility] Blood BLOOD SPECIMEN / Unknown Venipuncture / Unknown 09/10/2015 3:29 PM CDT 09/10/2015 3:43 PM CDT Maricruz Coley MD LAB - CHEMISTRY O RDERABLES [facility] [address] [place] [address] * CHLAMYDIA + GC AMPLIFIED PROBE (09/10/2015 2:57 PM CDT) Chlamydia Amplified Probe Negative Negative 09/11/2015 6:59 AM CDT [facility] GC Amplified Probe Negative Negative 09/11/2015 6:59 AM CDT [facility] Microbiology PART OF UTERINE CERVIX / Unknown Collection / Unknown 09/10/2015 2:57 PM CDT 09/10/2015 3:43 PM CDT Narrative [facility] - 09/11/2015 6:59 AM CDT Results based on detection/no detection of ribosomal RNA by amplified method. Maricruz Coley MD LAB - MICROBIOLOG Y ORDERABLES Performing Organization Address City/[facility]/ZIP Co de Phone Number [facility] [address] [place] [address], [facility] [phone] * CULTURE STREP B (09/10/2015 2:57 PM CDT) Culture Negative for Beta Hemolytic Streptococcus Group B DENNIS 09/13/2015 10:26 AM CDT [facility] Microbiology MISCELLANEOUS SAMPLES / Unknown Collection / Unknown 09/10/2015 2:57 PM CDT 09/10/2015 3:43 PM CDT Maricruz Coley MD LAB - MICROBIOLOG Y ORDERABLES Performing Organization Address [facility] Co de Phone Number [facility] [address] [place] [address], [facility] [phone] * (ABNORMAL) CULTURE URINE (01/12/2014 4:25 PM CDT) Culture Urine ESCHERICHIA COLI(A) [facility] Comment:100,000 CFU/ML Esche richia Coli Urine specimen (specimen) URINE SPECIMEN OBTAINED BY CLEAN CATCH PROCEDURE / Unknown 01/12/2014 4:25 PM CDT 01/12/2014 9:47 PM CDT Narrative [facility] - 01/14/2014 11:42 AM CDT [id number] Ha Loc/Rm/Bed: EXPCARE B// CLN CATCH U [...] - MICROBIOLOG Y ORDERABLES Performing Organization Address City/State/[facility] Co de Phone Number [facility] [address] [phone]
--- OUTSIDE RECORDS SUMMARY | 2024-05-12 10:05 | XMS_ITS | Clinical Summary ---
Author Organization [facility] Address [facility] [place] [address] Care Team Providers Care Medicine Assistant Name Role Phone Unavailable Primary Care Provider Unavailabl e Source Comments [facility],non-owned Affiliates and Associated Physician Practices is amultiple site organization consisting of ambulatory clinics and hospital sitesin [place], [place], [place] and [place]. This disclosure is being madepursuant to the Care Everywhere program and may not contain all information available regarding this patient. Last updated 17.[facility] Allergies No known active allergies Medications * [...]
--- OUTSIDE RECORDS SUMMARY | 2024-05-12 10:05 | XMS_ITS | Clinical Summary ---
Author Organization [facility] Address [address] [place] [address] Phone Care Team Providers Care Tour Leader Name Role Phone ROBERTA WARNER MD Primary Care Provider [phone] Reason for Visit and Chief Complaint * [...] 08/06/2017 12:13PM By ROBERTA WARNER MD ; [facility] Bactrim DS 800-160MG Oral Tablet 10/12/2016 - 10/23/19 17 Provider: ROBERTA WARNER MD Diagnosis: One tablet twice a day Last Documented On 10/12/2016 4:51PM By ROBERTA WARNER MD ; [facility] MetFORMIN HCl 500MG Oral Tablet 06/26/2016 - 7 Provider: ROBERTA WARNER MD Diagnosis: i po in am X 1-2 weeks then increase to i po bid Last Documented On 06/26/2016 2:26PM By ROBERTA WARNER MD ; [facility] CeleXA 20 MG Tablet 02/11/2016 - 03/12/2016 Provider: ROBERTA WARNER MD 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, NEC One tablet daily Last Documented On 02/11/2016 2:33PM By ROBERTA WARNER MD ; [facility] Sulfamethoxazole-TMP DS 800- 160 MG Tablet 08/21/2014 - 08/28/2014 Provider: ROBERTA WARNER MD Diagnosis: One tablet twice a day Last Documented On 08/21/2014 2:47PM By ROBERTA WARNER MD ; [facility] Aviane 0.1-20 MG-MCG Tablet 06/26/2014 - 10/16/2014 Pr ovider: ROBERTA WARNER MD Diagnosis: One tablet daily Last Documented On 06/26/2014 10:58AM By ROBERTA WARNER MD ; [facility] Medications Administered Includes: Administered Medications [...] 06/26/2014 Last Documented On 7 2:31PM ; [facility] Review of Systems Includes: Review [...] Relationship Effect melvin Dates 1 - R [id number] TRENA DAVID F Child 2 - MEDICAID - NON [facility] [id number] JONNIE ALBRECHT Self Clinical Notes Includes: Clinical Notes from this encounter No Clinical Notes Recorded
--- OUTSIDE RECORDS SUMMARY | 2024-05-12 10:05 | XMS_ITS | Clinical Summary ---
Author Organization [facility] Address [address] [place] [address] Phone Care Team Providers Care Rn Circulating Name Role Phone ALANA HERNANDEZ, ROBERTA Espino [...] Relationship Effect melvin Dates 1 - R [id number] DAVID ALBRECHT Child 2 - MEDICAID - NON [facility] [id number] JONNIEJoan ALBRECHT Self Clinical Notes Includes: Clinical Notes from this encounter No Clinical Notes Recorded
--- OUTSIDE RECORDS SUMMARY | 2024-05-12 10:05 | XMS_ITS ---
Care Plan - [facility] Created on: May 12, 2024 TRENAJONNIE : 1995 Sex: Female Author Organization [facility] Address [address] [place] [address] Phone Care Team Providers Care Import Coordinator Name Role Phone ROBERTA WARNER MD Primary Care Provider [phone]
--- OUTSIDE RECORDS SUMMARY | 2024-05-12 10:05 | XMS_ITS ---
Author Organization [facility] Address [address] [place] [address] Phone Care Team Providers Care Dance Teacher Name Role Phone ROBERTA WARNER MD Primary Care Provider [phone] Problems Includes: Active, inactive, and resolved Problems All Visits Onset Date Resolved Date Provider Condition S tatus History of Abnormal Pap Smear 04/12/2015 Unknown ROBERTA WARNER MD Resolved Last Documented On 06/11/2016 3:00PM ; [facility] Note: was Closed. History of Depression 04/12/2015 Unknown ROBERTA WARNER MD Resolved Last Documented On 06/11/2016 3:00PM ; [facility] Note: was Closed. Tobacco Use 04/12/2015 Unknown ROBERTA WARNER MD Resolve d Last Documented On 06/11/2016 3:00PM ; [facility] Note: was Closed. Tobacco Use 04/12/2015 Unknown ROBERTA WARNER MD Resolve d Last Documented On 06/11/2016 3:00PM ; [facility] Note: was Closed. Plan of Treatment Findings Encounter Date Ordered Clinical summary pro vided to patient RETURN OB EXAM with ROSSI Rosie REESE VALARIE-BC 08/15/2015 Last Documented On 6 3:42PM ; [facility] Ordered Clinical summary pro vided to patient RETURN OB EXAM with ROSSI Rosie REESE VALARIE-BC 05/16/2015 Last Documented On 6 11:02AM ; [facility] Instructions to patient Instructions for patient : B reast Self Exam discussed Last Documented On 7 4:39PM ; [facility] Instructions for patient : K eep the area around the vulva dry. Allow the area to have exposure to air. Avoid irritants such as fabric softeners and perfumed soaps.~ Last Documented On 5 2:49PM ; [facility] Education and Decision Aids were provided during visit for: Patient counseling : Use of oral contraceptives discussed in detail including rare occurrence of heart attack, stroke, and leg clots. Patient understands that smoking increases the risk of serious side effects with any steroid-based contraceptive method Last Documented On 7 4:41PM ; [facility] STD screening offered and de clined Last Documented On 7 4:39PM ; [facility] INFORMED CONSENT DISCUSSION: Colposcopy was discussed in detail including risk of post procedure bleeding. Patient is not to have intercourse for 5 days following the procedure. Patient expressed understanding of the above and consented to the procedure Last Documented On 6 9:40AM ; [facility] Patient counseling : Use of oral contraceptives discussed in detail including rare occurrence of heart attack, stroke, and leg clots. Patient understands that smoking increases the risk of serious side effects with any steroid-based contraceptive method Last Documented On 5 10:58AM ; [facility] Assessments Includes: Assessments for all patient encounters Findings Encounter Date Contraceptive management MED CHECK with ROBERTA JORDAN MD 10/12/2016 Last Documented On 7 4:54PM ; [facility] Labial abscess MED CHECK with ROBERTA WARNER MD 10/12/2016 Last Documented On 7 4:54PM ; [facility] Polycystic Ovarian Syndrome (PCOS) MED CHECK wit h ROBERTA WARNER MD 10/12/2016 Last Documented On 7 4:54PM ; [facility] Routine pelvic exam MED CHECK with ROBERTA WARNER MD 10/12/2016 Last Documented On 7 4:54PM ; [facility] Contraceptive management PROBLEM VISIT with ROBERTA WARNER MD 06/26/2016 Last Documented On 7 2:23PM ; [facility] Polycystic Ovarian Syndrome (PCOS) PROBLEM VISIT with ROBERTA WARNER MD 06/26/2016 Last Documented On 7 2:23PM ; [facility] Contraceptive management RECHECK with ROBERTA LOPEZ MD 06/23/2016 Last Documented On 7 10:51AM ; [facility] Menometrorrhagia RECHECK with ROBERTA WARNER MD 0 06/23/2016 Last Documented On 7 10:51AM ; [facility] Polycystic Ovarian Syndrome (PCOS) RECHECK with ROBERTA WARNER MD 06/23/2016 Last Documented On 7 10:51AM ; [facility] Contraceptive management: In sertion of IUD PROBLEM VISIT with ROBERTA WARNER MD 04/17/2016 Last Documented On 7 2:05PM ; [facility] Nonpuerperal galactorrhea PROBLEM VISIT with EWELINA WARNER MD 04/17/2016 Last Documented On 7 2:05PM ; [facility] Oligomenorrhea PROBLEM VISIT with ROBERTA WARNER MD 04/17/2016 Last Documented On 7 2:05PM ; [facility] Secondary amenorrhea PROBLEM VISIT with ROBERTA JORDAN MD 04/17/2016 Last Documented On 7 2:05PM ; [facility] depression POST VISIT with EWELINA WARNER MD 02/11/2016 Last Documented On 6 2:34PM ; [facility] Normal checkup (6 - 42 wk) RETURN OB EX AM with ROBERTA WARNER MD 08/29/2015 Last Documented On 6 4:19PM ; [facility] Normal checkup (6 - 42 wk) RETU RN OB EXAM with ROSSI CHOUDHURY 08/15/2015 Last Documented On 6 3:42PM ; [facility] Normal checkup (6 - 42 wk) [Pat ient Encounter] with ROBERTA WARNER MD 08/06/2015 Last Documented On 6 10:14AM ; [facility] Normal checkup (6 - 42 wk) RETURN OB EX AM with ROBERTA WARNER MD 08/01/2015 Last Documented On 6 9:47AM ; [facility] Normal checkup (6 - 42 wk) RETU RN OB EXAM with ROSSI CHOUDHURY 07/11/2015 Last Documented On 6 3:55PM ; [facility] Normal checkup (6 - 42 wk) * PHONE CALL with ROBERTA WARNER MD 06/27/2015 Last Documented On 6 11:00AM ; [facility] Normal checkup (6 - 42 wk) RETURN OB EX AM with ROBERTA WARNER MD 06/13/2015 Last Documented On 6 4:15PM ; [facility] Normal checkup (6 - 42 wk) RETU RN OB EXAM with ROSSI CHOUDHURY 05/16/2015 Last Documented On 6 11:02AM ; [facility] Assessment of abnormal Pap s mear: atypical squamous cells of undetermined significance COLPOSCOPY with ROBERTA WARNER MD 04/29/2015 Last Documented On 6 10:06AM ; [facility] Assessment of cervical high risk human papilloma virus DNA test was positive COLPOSCOPY with ROBERTA WARNER MD 04/29/2015 Last Documented On 6 10:06AM ; [facility] Normal checkup (6 - 42 wk) COLPOSCOPY w ith ROBERTA WARNER MD 04/29/2015 Last Documented On 6 10:06AM ; [facility] Normal checkup (6 - 42 wk) NEW OB EXAM with ROBERTA WARNER MD 04/12/2015 Last Documented On 6 4:19PM ; 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 Contraceptive management NEW GRAPHICS SPECIALIST EXAM with ROBERTA WARNER MD 06/26/2014 Last Documented On 5 11:01AM ; [facility] Female pelvic pain NEW GRAPHICS SPECIALIST EXAM with ROBERTA RODRIGUEZ MD 06/26/2014 Last Documented On 5 11:01AM ; [facility] Ovarian cyst NEW GRAPHICS SPECIALIST EXAM with ROBERTA WARNER MD 06/26/2014 Last Documented On 5 11:01AM ; [facility] Instructions Includes: Instructions for all patient encounters Instructions to patient Instructions for patient : B reast Self Exam discussed Last Documented On 7 4:39PM ; [facility] Instructions for patient : K eep the area around the vulva dry. Allow the area to have exposure to air. Avoid irritants such as fabric softeners and perfumed soaps.~ Last Documented On 5 2:49PM ; [facility] Education and Decision Aids were provided during visit for: Patient counseling : Use of oral contraceptives discussed in detail including rare occurrence of heart attack, stroke, and leg clots. Patient understands that smoking increases the risk of serious side effects with any steroid-based contraceptive method Last Documented On 7 4:41PM ; [facility] STD screening offered and de clined Last Documented On 7 4:39PM ; [facility] INFORMED CONSENT DISCUSSION: Colposcopy was discussed in detail including risk of post procedure bleeding. Patient is not to have intercourse for 5 days following the procedure. Patient expressed understanding of the above and consented to the procedure Last Documented On 6 9:40AM ; [facility] Patient counseling : Use of oral contraceptives discussed in detail including rare occurrence of heart attack, stroke, and leg clots. Patient understands that smoking increases the risk of serious side effects with any steroid-based contraceptive method Last Documented On 5 10:58AM ; [facility] Medical Equipment - Implanted Devices Includes: Current and historical Devices No Medical Equipment Recorded Medications Includes: Current and historical Medications Past Medications on file NuvaRing 0.12-0.015MG/24HR V aginal Ring 08/06/2017 - 09/03/2017 Provider: ROBERTA WARNER MD Diagnosis: i ring vaginally X 3 weeks, remove, then insert new ring 1 week later Last Documented On 08/06/2017 12:13PM By ROBERTA WARNER MD ; [facility] Bactrim DS 800-160MG Oral Tablet 10/12/2016 - 10/23/19 Provider: ROBERTA WARNER MD Diagnosis: One tablet twice a day Last Documented On 10/12/2016 4:51PM By ROBERTA WARNER MD ; [facility] NuvaRing 0.12-0.015MG/24HR Vaginal Ring 10/12/2016 - 0 08/11/2017 Provider: Diagnosis: Last Documented On 8 2:31PM By SUJATA ROSENBAUM ; [facility] NuvaRing 0.12-0.015MG/24HR V aginal Ring 10/12/2016 - 08/06/2017 Provider: ROBERTA WARNER MD Diagnosis: i ring vaginally X 3 weeks, remove, then insert new ring 1 week later Last Documented On 08/06/2017 12:04PM By ROBERTA WARNER MD ; [facility] MetFORMIN HCl 500MG Oral Tablet 06/26/2016 - 7 Provider: ROBERTA WARNER MD Diagnosis: i po in am X 1-2 weeks then increase to i po bid Last Documented On 06/26/2016 2:26PM By ROBERTA WARNER MD ; [facility] NuvaRing 0.12-0.015MG/24HR V aginal Ring 06/26/2016 - 10/12/2016 Provider: ROBERTA WARNER MD Diagnosis: i ring vaginally X 3 weeks, remove, then insert new ring 1 week later Last Documented On 10/12/2016 4:49PM By ROBERTA WARNER MD ; [facility] Paragard Intrauterine Copper Intrauterine device 06/23/2016 - 06/26/2016 Provider: Diagnosis: Last Documented On 06/26/2016 1:57PM By GIANNI CARDENAS LPN ; 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 Classic 28-0.8 MG Tablet 04/12/2015 - 016 Provider: Diagnosis: Last Documented On 02/11/2016 2:12PM By NATIVIDAD ROSENBAUM ; [facility] Sulfamethoxazole-TMP DS 800- 160 MG Tablet 08/21/2014 - 08/28/2014 Provider: ROBERTA WARNER MD Diagnosis: One tablet twice a day Last Documented On 08/21/2014 2:47PM By ROBERTA WARNER MD ; [facility] Aviane 0.1-20 MG-MCG Tablet 06/26/2014 - 10/16/2014 Pr ovider: ROBERTA WARNER MD Diagnosis: One tablet daily Last Documented On 06/26/2014 10:58AM By ROBERTA WARNER MD ; [facility] Medications Administered Includes: Administered Medications in patient's chart No Administered Medications Recorded Results Includes: Results from 05/12/2023 through 05/12/2024 No Results Recorded For Specified Dates History of Present Illness History of Present Illness not supported for this document type No History of Present Illness Recorded Social History Description Last Updated In monogamous relationship 10/12/2016 Last Documented On 7 4:54PM ; [facility] Sexually active 10/12/2016 Last Documented On 7 4:54PM ; [facility] Cigarette smoking 10/12/2016 Last Documented On 7 4:54PM ; [facility] Alcohol use: 2 drinks or less per day oc c 06/26/2016 Last Documented On 7 2:23PM ; [facility] Smoking status : Current everyday smoker 04/17/2016 Last Documented On 7 2:05PM ; [facility] Sexually active 8 weeks 02/10 Last Documented On 6 2:34PM ; [facility] Tobacco use 04/15/2015 Last Documented On 6 4:19PM ; [facility] Medical History Includes: Medical History in patient's chart Description Last Updated Contraception: Nuvaring 10/12/2016 Last Documented On 7 4:54PM ; [facility] LMP: 10/04/2016 10/12/2016 Last Documented On 7 4:54PM ; [facility] Aborta 1 10/12/2016 Last Documented On 7 4:54PM ; [facility] 2 10/12/2016 Last Documented On 7 4:54PM ; [facility] Last pap smear date 04/12/2015 10/12/2016 Last Documented On 7 4:54PM ; [facility] Para 1 10/12/2016 Last Documented On 7 4:54PM ; [facility] Infant is bottle-feeding 02/11/2016 Last Documented On 6 2:34PM ; [facility] Baby thriving boy Ricardo 02/11/2016 Last Documented On 6 2:34PM ; [facility] History of Abnormal Pap Smear LSIL 201408/15/2015 Last Documented On 6 3:42PM ; [facility] History of depression no meds for 1 1/2 years 08/15/2015 Last Documented On 6 3:42PM ; [facility] Previous hospitalizations [facility] depression 08/15/2015 Last Documented On 6 3:42PM ; [facility] Result: abnormal lsil 08/15/2015 Last Documented On 6 3:42PM ; [facility] Family History Includes: Family History in patient's chart Description Last Updated Family history of diabetes mellitus carlos hughes aunt 06/26/2014 Last Documented On 5 11:01AM ; [facility] Review of Systems Review of Systems [...] Subscriber Relationship Effect melvin Dates 1 - [facility] [id number] DAVID ALBRECHT [place] Child 2 - MEDICAID - [facility] [id number] JONNIE ALBRECHT Self Clinical Notes Includes: Signed Clinical Notes starting from 04/17/2022 No Clinical Notes Recorded
--- OUTSIDE RECORDS SUMMARY | 2024-05-12 10:06 | XMS_ITS | Clinical Summary ---
Author Organization [facility] Address [address] [place] [address] Phone Care Team Providers Care Customer Experience Manager Name Role Phone ROBERTA WARNER MD Primary [...] Relationship Effect melvin Dates 1 - [id number] DAVID ALBRECHT Child 2 - MEDICAID - NON [facility] [id number] JONNIE ALBRECHT Self Clinical Notes Includes: Clinical Notes from this encounter No Clinical Notes Recorded
[2024-05-12 10:07] VITALS: BP 151/83; PULSE 107; RESP 16; TEMP 36.8; O2SAT 99
--- OUTSIDE RECORDS SUMMARY | 2024-05-12 10:08 | XMS_ITS | Clinical Summary ---
Author Organization [facility] Address [address] [place] [address] Phone Care Team Providers Care Analytics Specialist Name Role Phone ALANA HERNANDEZ, ROBERTA Espino [...] Time Diagnosis NO SHOW ROBERTA WARNER MD [facility] SOFTWARE DEVELOPMENT LEADER 08/16/2017 1:20PM 11:59PM Insurance Includes: Active Insurance Policies Plan Name Member ID Group # Subscriber Relationship Effect melvin Dates 1 - R [id number] DAVID ALBRECHT Child 2 - MEDICAID - NON [facility] [id number] JONNIE Clarissa ALBRECHT Self Clinical Notes Includes: Clinical Notes from this encounter No Clinical Notes Recorded
--- OUTSIDE RECORDS SUMMARY | 2024-05-12 10:08 | XMS_ITS | Clinical Summary ---
Author Organization [facility] Address [address] [place] [address] Phone Care Team Providers Care Acoustic Intelligence Specialist Name Role Phone ALANA HERNANDEZ, ROBERTA [...] Relationship Effect melvin Dates 1 - R [id number] DAVID ALBRECHT Child 2 - MEDICAID - NON [facility] [id number] JONNIEJoan ALBRECHT Self Clinical Notes Includes: Clinical Notes from this encounter No Clinical Notes Recorded
--- OUTSIDE RECORDS SUMMARY | 2024-05-12 10:09 | XMS_ITS | Clinical Summary ---
Author Organization [facility] Address [address] [place] [address] Phone Care Team Providers Care Chief Dispatcher Name Role Phone ALANA HERNANDEZ, ROBERTA Espino Primary Care Provider [phone] Reason for Visit and Chief Complaint [Patient Encounter] Plan of Treatment Pending Tests Order Diagnosis Results Due Ordering P rovider Lab HCG, Serum, Quant 03/24/17 ROBERTA WARNER MD Last Documented On 8 11:18AM ; [facility] Assessments Includes: Assessments from [...] Subscriber Relationship Effect melvin Dates 1 - [facility] [id number] DAVID ALBRECHT Child 2 - MEDICAID - [facility] [id number] JONNIE ALBRECHT Self Clinical Notes Includes: Clinical Notes from this encounter No Clinical Notes Recorded
--- OUTSIDE RECORDS SUMMARY | 2024-05-12 10:09 | XMS_ITS ---
Author Organization [facility] Address [address] [place] [address] Phone Care Team Providers Care Production Line Manager Name Role Phone ROBERTA WARNER MD Primary Care Provider [phone] Problems Includes: Active, inactive, and resolved Problems All Visits Onset Date Resolved Date Provider Condition S tatus History of Abnormal Pap Smear 04/12/2015 Unknown ROBERTA WARNER MD Resolved Last Documented On 06/11/2016 3:00PM ; [facility] Note: was Closed. History of Depression 04/12/2015 Unknown ROBERTA WARNER MD Resolved Last Documented On 06/11/2016 3:00PM ; [facility] Note: was Closed. Tobacco Use 04/12/2015 Unknown ROBERTA WARNER MD Resolve d Last Documented On 06/11/2016 3:00PM ; [facility] Note: was Closed. Tobacco Use 04/12/2015 Unknown ROBERTA WARNER MD Resolve d Last Documented On 06/11/2016 3:00PM ; [facility] Note: was Closed. Plan of Treatment Findings Encounter Date Ordered Clinical summary pro vided to patient RETURN OB EXAM with ROSSI Rosie REESE VALARIE-BC 08/15/2015 Last Documented On 6 3:42PM ; [facility] Ordered Clinical summary pro vided to patient RETURN OB EXAM with ROSSI Rosie REESE VALARIE-BC 05/16/2015 Last Documented On 6 11:02AM ; [facility] Instructions to patient Instructions for patient : B reast Self Exam discussed Last Documented On 7 4:39PM ; [facility] Instructions for patient : K eep the area around the vulva dry. Allow the area to have exposure to air. Avoid irritants such as fabric softeners and perfumed soaps.~ Last Documented On 5 2:49PM ; [facility] Education and Decision Aids were provided during visit for: Patient counseling : Use of oral contraceptives discussed in detail including rare occurrence of heart attack, stroke, and leg clots. Patient understands that smoking increases the risk of serious side effects with any steroid-based contraceptive method Last Documented On 7 4:41PM ; [facility] STD screening offered and de clined Last Documented On 7 4:39PM ; [facility] INFORMED CONSENT DISCUSSION: Colposcopy was discussed in detail including risk of post procedure bleeding. Patient is not to have intercourse for 5 days following the procedure. Patient expressed understanding of the above and consented to the procedure Last Documented On 6 9:40AM ; [facility] Patient counseling : Use of oral contraceptives discussed in detail including rare occurrence of heart attack, stroke, and leg clots. Patient understands that smoking increases the risk of serious side effects with any steroid-based contraceptive method Last Documented On 5 10:58AM ; [facility] Assessments Includes: Assessments for all patient encounters Findings Encounter Date Contraceptive management MED CHECK with ROBERTA JORDAN MD 10/12/2016 Last Documented On 7 4:54PM ; [facility] Labial abscess MED CHECK with ROBERTA WARNER MD 10/12/2016 Last Documented On 7 4:54PM ; [facility] Polycystic Ovarian Syndrome (PCOS) MED CHECK wit h ROBERTA WARNER MD 10/12/2016 Last Documented On 7 4:54PM ; [facility] Routine pelvic exam MED CHECK with ROBERTA WARNER MD 10/12/2016 Last Documented On 7 4:54PM ; [facility] Contraceptive management PROBLEM VISIT with ROBERTA WARNER MD 06/26/2016 Last Documented On 7 2:23PM ; [facility] Polycystic Ovarian Syndrome (PCOS) PROBLEM VISIT with ROBERTA WARNER MD 06/26/2016 Last Documented On 7 2:23PM ; [facility] Contraceptive management RECHECK with ROBERTA LOPEZ MD 06/23/2016 Last Documented On 7 10:51AM ; [facility] Menometrorrhagia RECHECK with ROBERTA WARNER MD 0 06/23/2016 Last Documented On 7 10:51AM ; [facility] Polycystic Ovarian Syndrome (PCOS) RECHECK with ROBERTA WARNER MD 06/23/2016 Last Documented On 7 10:51AM ; [facility] Contraceptive management: In sertion of IUD PROBLEM VISIT with ROBERTA WARNER MD 04/17/2016 Last Documented On 7 2:05PM ; [facility] Nonpuerperal galactorrhea PROBLEM VISIT with EWELINA WARNER MD 04/17/2016 Last Documented On 7 2:05PM ; [facility] Oligomenorrhea PROBLEM VISIT with ROBERTA WARNER MD 04/17/2016 Last Documented On 7 2:05PM ; [facility] Secondary amenorrhea PROBLEM VISIT with ROBETRA JORDAN MD 04/17/2016 Last Documented On 7 2:05PM ; [facility] depression POST VISIT with EWELINA WARNER MD 02/11/2016 Last Documented On 6 2:34PM ; [facility] Normal checkup (6 - 42 wk) RETURN OB EX AM with ROBERTA WARNER MD 08/29/2015 Last Documented On 6 4:19PM ; [facility] Normal checkup (6 - 42 wk) RETU RN OB EXAM with ROSSI CHOUDHURY 08/15/2015 Last Documented On 6 3:42PM ; [facility] Normal checkup (6 - 42 wk) [Pat ient Encounter] with ROBERTA WARNER MD 08/06/2015 Last Documented On 6 10:14AM ; [facility] Normal checkup (6 - 42 wk) RETURN OB EX AM with ROBERTA WARNER MD 08/01/2015 Last Documented On 6 9:47AM ; [facility] Normal checkup (6 - 42 wk) RETU RN OB EXAM with ROSSI CHOUDHURY 07/11/2015 Last Documented On 6 3:55PM ; [facility] Normal checkup (6 - 42 wk) * PHONE CALL with ROBERTA WARNER MD 06/27/2015 Last Documented On 6 11:00AM ; [facility] Normal checkup (6 - 42 wk) RETURN OB EX AM with ROBERTA WARNER MD 06/13/2015 Last Documented On 6 4:15PM ; [facility] Normal checkup (6 - 42 wk) RETU RN OB EXAM with ROSSI CHOUDHURY 05/16/2015 Last Documented On 6 11:02AM ; [facility] Assessment of abnormal Pap s mear: atypical squamous cells of undetermined significance COLPOSCOPY with ROBERTA WARNER MD 04/29/2015 Last Documented On 6 10:06AM ; [facility] Assessment of cervical high risk human papilloma virus DNA test was positive COLPOSCOPY with ROBERTA WARNER MD 04/29/2015 Last Documented On 6 10:06AM ; [facility] Normal checkup (6 - 42 wk) COLPOSCOPY w ith ROBERTA WARNER MD 04/29/2015 Last Documented On 6 10:06AM ; [facility] Normal checkup (6 - 42 wk) NEW OB EXAM with ROBERTA WARNER MD 04/12/2015 Last Documented On 6 4:19PM ; [facility] 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 MD 08/21/2014 Last Documented On 5 2:54PM ; [facility] Contraceptive management NEW STEAM DISTRIBUTION SUPERVISOR EXAM with ROBERTA WARNER MD 06/26/2014 Last Documented On 5 11:01AM ; [facility] Female pelvic pain NEW STEAM DISTRIBUTION SUPERVISOR EXAM with ROBERTA RODRIGUEZ MD 06/26/2014 Last Documented On 5 11:01AM ; [facility] Ovarian cyst NEW STEAM DISTRIBUTION SUPERVISOR EXAM with ROBERTA WARNER MD 06/26/2014 Last Documented On 5 11:01AM ; [facility] Instructions Includes: Instructions for all patient encounters Instructions to patient Instructions for patient : B reast Self Exam discussed Last Documented On 7 4:39PM ; [facility] Instructions for patient : K eep the area around the vulva dry. Allow the area to have exposure to air. Avoid irritants such as fabric softeners and perfumed soaps.~ Last Documented On 5 2:49PM ; [facility] Education and Decision Aids were provided during visit for: Patient counseling : Use of oral contraceptives discussed in detail including rare occurrence of heart attack, stroke, and leg clots. Patient understands that smoking increases the risk of serious side effects with any steroid-based contraceptive method Last Documented On 7 4:41PM ; [facility] STD screening offered and de clined Last Documented On 7 4:39PM ; [facility] INFORMED CONSENT DISCUSSION: Colposcopy was discussed in detail including risk of post procedure bleeding. Patient is not to have intercourse for 5 days following the procedure. Patient expressed understanding of the above and consented to the procedure Last Documented On 6 9:40AM ; [facility] Patient counseling : Use of oral contraceptives discussed in detail including rare occurrence of heart attack, stroke, and leg clots. Patient understands that smoking increases the risk of serious side effects with any steroid-based contraceptive method Last Documented On 5 10:58AM ; [facility] Medical Equipment - Implanted Devices Includes: Current and historical Devices No Medical Equipment Recorded Medications Includes: Current and historical Medications Past Medications on file NuvaRing 0.12-0.015MG/24HR V aginal Ring 08/06/2017 - 09/03/2017 Provider: ROBERTA WARNER MD Diagnosis: i ring vaginally X 3 weeks, remove, then insert new ring 1 week later Last Documented On 08/06/2017 12:13PM By ROBERTA WARNER MD ; [facility] Bactrim DS 800-160MG Oral Tablet 10/12/2016 - 10/23/19 Provider: ROBERTA WARNER MD Diagnosis: One tablet twice a day Last Documented On 10/12/2016 4:51PM By ROBERTA WARNER MD ; [facility] NuvaRing 0.12-0.015MG/24HR Vaginal Ring 10/12/2016 - 0 08/11/2017 Provider: Diagnosis: Last Documented On 8 2:31PM By SUJATA ROSENBAUM ; [facility] NuvaRing 0.12-0.015MG/24HR V aginal Ring 10/12/2016 - 08/06/2017 Provider: ROBERTA WARNER MD Diagnosis: i ring vaginally X 3 weeks, remove, then insert new ring 1 week later Last Documented On 08/06/2017 12:04PM By ROBERTA WARNER MD ; [facility] MetFORMIN HCl 500MG Oral Tablet 06/26/2016 - 7 Provider: ROBERTA WARNER MD Diagnosis: i po in am X 1-2 weeks then increase to i po bid Last Documented On 06/26/2016 2:26PM By ROBERTA WARNER MD ; [facility] NuvaRing 0.12-0.015MG/24HR V aginal Ring 06/26/2016 - 10/12/2016 Provider: ROBERTA WARNER MD Diagnosis: i ring vaginally X 3 weeks, remove, then insert new ring 1 week later Last Documented On 10/12/2016 4:49PM By ROBERTA WARNER MD ; [facility] Paragard Intrauterine Copper Intrauterine device 06/23/2016 - 06/26/2016 Provider: Diagnosis: Last Documented On 06/26/2016 1:57PM By GIANNI CARDENAS LPN ; [facility] CeleXA 20 MG Tablet 02/11/2016 - 03/12/2016 Provider: ROBERTA WARNER MD 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, NEC One tablet daily Last Documented On 02/11/2016 2:33PM By ROBERTA WARNER MD ; [facility] Classic 28-0.8 MG Tablet 04/12/2015 - 016 Provider: Diagnosis: Last Documented On 02/11/2016 2:12PM By NATIVIDAD ROSENBAUM ; [facility] Sulfamethoxazole-TMP DS 800- 160 MG Tablet 08/21/2014 - 08/28/2014 Provider: ROBERTA WARNER MD Diagnosis: One tablet twice a day Last Documented On 08/21/2014 2:47PM By ROBERTA WARNER MD ; [facility] Aviane 0.1-20 MG-MCG Tablet 06/26/2014 - 10/16/2014 Pr ovider: ROBERTA WARNER MD Diagnosis: One tablet daily Last Documented On 06/26/2014 10:58AM By ROBERTA WARNER MD ; [facility] Medications Administered Includes: Administered Medications in patient's chart No Administered Medications Recorded Results Includes: Results from 05/12/2023 through 05/12/2024 No Results Recorded For Specified Dates History of Present Illness History of Present Illness not supported for this document type No History of Present Illness Recorded Social History Description Last Updated In monogamous relationship 10/12/2016 Last Documented On 7 4:54PM ; [facility] Sexually active 10/12/2016 Last Documented On 7 4:54PM ; [facility] Cigarette smoking 10/12/2016 Last Documented On 7 4:54PM ; [facility] Alcohol use: 2 drinks or less per day oc c 06/26/2016 Last Documented On 7 2:23PM ; [facility] Smoking status : Current everyday smoker 04/17/2016 Last Documented On 7 2:05PM ; [facility] Sexually active 8 weeks 02/10 Last Documented On 6 2:34PM ; [facility] Tobacco use 04/15/2015 Last Documented On 6 4:19PM ; [facility] Medical History Includes: Medical History in patient's chart Description Last Updated Contraception: Nuvaring 10/12/2016 Last Documented On 7 4:54PM ; [facility] LMP: 10/04/2016 10/12/2016 Last Documented On 7 4:54PM ; [facility] Aborta 1 10/12/2016 Last Documented On 7 4:54PM ; [facility] 2 10/12/2016 Last Documented On 7 4:54PM ; [facility] Last pap smear date 04/12/2015 10/12/2016 Last Documented On 7 4:54PM ; [facility] Para 1 10/12/2016 Last Documented On 7 4:54PM ; [facility] Infant is bottle-feeding 02/11/2016 Last Documented On 6 2:34PM ; [facility] Baby thriving boy Ricardo 02/11/2016 Last Documented On 6 2:34PM ; [facility] History of Abnormal Pap Smear LSIL 201408/15/2015 Last Documented On 6 3:42PM ; [facility] History of depression no meds for 1 1/2 years 08/15/2015 Last Documented On 6 3:42PM ; [facility] Previous hospitalizations [facility] depression 08/15/2015 Last Documented On 6 3:42PM ; [facility] Result: abnormal lsil 08/15/2015 Last Documented On 6 3:42PM ; [facility] Family History Includes: Family History in patient's chart Description Last Updated Family history of diabetes mellitus carlos hughes aunt 06/26/2014 Last Documented On 5 11:01AM ; [facility] Review of Systems Review of [...] Subscriber Relationship Effect melvin Dates 1 - [facility] [id number] DAVID ALBRECHT [place] Child 2 - MEDICAID - [facility] [id number] JONNIE ALBRECHT Self Clinical Notes Includes: Signed Clinical Notes starting from 04/17/2022 No Clinical Notes Recorded
--- OUTSIDE RECORDS SUMMARY | 2024-05-12 10:09 | XMS_ITS ---
Care Plan - [facility] Created on: May 12, 2024 TRENAJONNIE : 1995 Sex: Female Author Organization [facility] Address [address] [place] [address] Phone Care Team Providers Care Cargo And Ramp Services Manager Name Role Phone ROBERTA WARNER MD Primary Care Provider [phone]
--- OUTSIDE RECORDS SUMMARY | 2024-05-12 10:09 | XMS_ITS | Clinical Summary ---
Author Organization [facility] Address [address] [place] [address] Phone Care Team Providers Care Chrome Cleaner Name Role Phone ROBERTA WARNER MD Primary Care Provider [phone] Reason for Visit and Chief Complaint * [...] 08/06/2017 12:13PM By ROBERTA WARNER MD ; [facility] Bactrim DS 800-160MG Oral Tablet 10/12/2016 - 10/23/19 17 Provider: ROBERTA WARNER MD Diagnosis: One tablet twice a day Last Documented On 10/12/2016 4:51PM By ROBERTA WARNER MD ; [facility] MetFORMIN HCl 500MG Oral Tablet 06/26/2016 - 7 Provider: ROBERTA WARNER MD Diagnosis: i po in am X 1-2 weeks then increase to i po bid Last Documented On 06/26/2016 2:26PM By ROBERTA WARNER MD ; [facility] CeleXA 20 MG Tablet 02/11/2016 - 03/12/2016 Provider: ROBERTA WARNER MD 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, NEC One tablet daily Last Documented On 02/11/2016 2:33PM By ROBERTA WARNER MD ; [facility] Sulfamethoxazole-TMP DS 800- 160 MG Tablet 08/21/2014 - 08/28/2014 Provider: ROBERTA WARNER MD Diagnosis: One tablet twice a day Last Documented On 08/21/2014 2:47PM By ROBERTA WARNER MD ; [facility] Aviane 0.1-20 MG-MCG Tablet 06/26/2014 - 10/16/2014 Pr ovider: ROBERTA WARNER MD Diagnosis: One tablet daily Last Documented On 06/26/2014 10:58AM By ROBERTA WARNER MD ; [facility] Medications Administered Includes: Administered Medications [...] 06/26/2014 Last Documented On 7 2:31PM ; [facility] Review of Systems Includes: Review [...] Relationship Effect melvin Dates 1 - R [id number] TRENA DAVID F Child 2 - MEDICAID - NON [facility] [id number] JONNIE ALBRECHT Self Clinical Notes Includes: Clinical Notes from this encounter No Clinical Notes Recorded
--- OUTSIDE RECORDS SUMMARY | 2024-05-12 10:09 | XMS_ITS | Clinical Summary ---
Author Organization [facility] Address [address] [place] [address] Phone Care Team Providers Care Die Casting Machine Setter Name Role Phone ROBERTA WARNER MD Primary [...] Relationship Effect melvin Dates 1 - R [id number] DAVID ALBRECHT Child 2 - MEDICAID - NON [facility] [id number] JONNIE ALBRECHT Self Clinical Notes Includes: Clinical Notes from this encounter No Clinical Notes Recorded
--- NOTE | 2024-05-12 10:26 | ED_ITS ---
HPI - URI/Sore Throat General Chief Complaint: Upper Respiratory Infection Stated Complaint: cough/sneeze/congestion/fever Time Seen by Provider: 05/12/24 10:26 Source: patient and RN notes reviewed Mode of arrival: ambulatory Limitations: no limitations History of Present Illness HPI Narrative: 28-year-old female presented for complaint of headache, body aches, sinus pressure/congestion, cough, fever/chills. onset 4 days. Endorses temp up to 102.4. Taking Tylenol. Family with similar symptoms.Denies sob, wheezing, n/v/d. Smokes half ppd. MD elicited complaint: cough Related Data Allergies Allergy/AdvReac Type Severity Reaction Status Date / Time metformin AdvReac Intermediate Abdominal Verified 05/12/24 10:14 Pain Review of Systems Review of Systems: Per [facility] Past Medical History Medical History (Updated 05/12/24 @ 10:26 by Laura Valenzuela APRN) Miscarriage GERD (gastroesophageal reflux disease) Strep pharyngitis Seasonal allergies History of PCOS Anxiety and depression Social History Social History (Updated 04/25/24 @ 21:07 by Karmen Dixon NP) Smoking packs per day: 0.5 Smoking cigarettes per day: 10.0 Smoking status: Current every day smoker Tobacco type: cigarettes and e-cigarettes/vaping Alcohol intake: current Alcohol use details: rare social Substance use type: does not use Living arrangements: with family Gender identity (if verbalized by the patient): Female Exam Narrative: GENERAL: mildly Ill-appearing, nontoxic no acute distress. EYES: PERRLA, conjunctivae clear ENT: Mucous membranes moist. TM pearly darby with dull light reflex bilaterally; no tragal tenderness. Oropharynx erythematous without lesions or exudate, no drooling, no hoarseness, no trismus, uvula midline. No tripod positioning, muffled voice, soft palate or pharyngeal wall bulging NECK: Supple. No lymphadenopathy CHEST: Clear to auscultation, breath sounds equal. No wheezing, rhonchi, rales, or stridor. No respiratory distress, speaks in full sentences. HEART: Regular rate and rhythm. No murmur heard. SKIN: Warm, dry, no rash. NEURO: Alert and oriented x3. PSYCH: Normal mood and affect Course Course Emergency Course: Patient is aware of diagnosis, understands and agrees to treatment plan. Anticipatory guidance given. Patient agrees to follow-up as directed and is aware of reasons to seek care at the emergency department. Portions of this record may have been created with voice recognition software Level of Care: Express Care Visit Vital Signs Vital signs: Vital Signs Temperature 98.3 F 05/12/24 10:07 Pulse Rate 107 H 05/12/24 10:07 Respiratory Rate 16 05/12/24 10:07 Blood Pressure 151/83 H 05/12/24 10:07 Pulse Oximetry 99 05/12/24 10:07 Oxygen Delivery Room Air 05/12/24 10:07 Temperature 98.3 F 05/12/24 10:07 Pulse Rate 107 H 05/12/24 10:07 Respiratory Rate 16 05/12/24 10:07 Blood Pressure 151/83 H 05/12/24 10:07 Pulse Oximetry 99 05/12/24 10:07 Oxygen Delivery Room Air 05/12/24 10:07 reviewed MDM - URI/Sore Throat MDM Narrative Medical decision making narrative: positive flu. Rx steroid and inhaler, patient a smoker.Discussed physical exam findings. Advised supportive measures and signs/symptoms to go to the ER. Pt is appropriate for outpt treatment and f/u. Differential Diagnosis Differential diagnosis: Likely upper respiratory infection, sinusitis and viral infection Lab Data Labs: Lab Results 05/12/24 Range/Units 10:34 POC Influenza A Ag Positive (Negative) POC Influenza B Ag Negative (Negative) POC SARS CoV-2 Ag Negative (Negative) Discharge Plan Discharge Clinical Impression: Influenza Patient Disposition: Home, Self-Care Condition: Stable Instructions: Influenza (ED) Additional Instructions: Influenza positive You should avoid crowds until you are fever free for 24 hours without the use of fever reducing medications, or the symptoms are improved Rest. Drink plenty of fluids. Tylenol 1000mg every 8 hours as needed for pain/fever Recommend Flonase spray and Zyrtec (or Claritin/Karma) for sinus pressure/congestion over the counter Cough syrup may cause drowsiness; avoid driving or take it at night time. Follow up with your primary care provider as needed Go to the ER for worsening symptoms or concerns Patient Language: Salvadorean Prescriptions: New prednisone 50 mg tablet 50 mg PO DAILY Qty: 5 0RF albuterol sulfate 90 mcg/actuation HFA aerosol inhaler 2 inh inhalation QID PRN (Reason: shortness of breath or wheezing) Qty: 8.5 0RF Follow-up/Referrals: Obey,MD Augusto [Primary Care Provider] - Stand Alone Forms: Work/School Release IP
[2024-05-12 10:36] LABS: EDCOVIDSCREEN Negative (Negative); EDINFLUASCREEN Positive (Negative); EDINFLUBSCREEN Negative (Negative)
== END 2024-05-12 10:46 | disposition home or self-care (01) ==
PROVIDERS: Emergency Provider Nurse Practitioner Family; PCP Hospitalist
DX: J10.1 Influenza due to other identified influenza virus with other respiratory manifestations (principal); Z20.822 Contact with and (suspected) exposure to COVID-19; K21.9 Gastro-esophageal reflux disease without esophagitis; E28.2 Polycystic ovarian syndrome; F17.210 Nicotine dependence, cigarettes, uncomplicated; F17.290 Nicotine dependence, other tobacco product, uncomplicated
CPT/HCPCS: 87426; 87804; 99213; G0463

== ENCOUNTER 2024-06-05 17:46 | Emergency (ER) | payer OTHER, SELFPAY ==
[2024-06-05 17:50] VITALS: BP 123/73; PULSE 110; RESP 20; TEMP 36.6; O2SAT 98
--- NOTE | 2024-06-05 17:55 | ED.FEMALEGU ---
HPI - Female Genitourinary General Chief complaint: Urogenital-Female Stated complaint: right back pain over kidney Time Seen by Provider: 06/05/24 18:02 Source: patient, RN notes reviewed and old records reviewed Mode of arrival: ambulatory Limitations: no limitations History of Present Illness HPI Narrative: 28 year old female presents to express care with complaints of right flank pain since yesterday and reports that she thought it was her back and so she saw chiropractor today and had adjustment with no improvement in her pain. Patient is here for urine test to see if could be UTI or possibly a kidney stone. Patient presently not having any burning or pain with urination or any known fevers, chills or sweats. Patient reports no vaginal discharge or any concern for STD exposure.Patient has not taken any OTC MD elicited complaint: UTI Onset (ago): day(s) (day 2 of symptoms.) Location of symptoms: flank (right area) Severity scale (1-10): 7 Vaginal discharge: none Vaginal bleeding: none Treatment prior to arrival: none Related Data Allergies Allergy/AdvReac Type Severity Reaction Status Date / Time metformin AdvReac Intermediate Abdominal Verified 06/05/24 17:54 Pain Review of Systems Review of Systems: CONSTITUTIONAL: Denies fever, chills, or sweats. CARDIOVASCULAR: Denies chest pain, palpitations, or edema. RESPIRATORY: Denies cough or dyspnea. GASTROINTESTINAL: Denies abdominal pain, nausea, vomiting, or diarrhea. GENITOURINARY: Reports no dysuria, frequency, urgency. + right flank pain no hematuria. SKIN: Denies rash or itching. MUSCULOSKELETAL: reports right back pain over kidney area or myalgia Reports right CVA tenderness with no radiation.of pain NEUROLOGIC: Denies headache All systems reviewed & are unremarkable except as noted in HPI and below [facility] Past Medical History Medical History (Updated 06/07/24 @ 17:06 by Karmen Dixon NP) Sinusitis, acute maxillary Miscarriage GERD (gastroesophageal reflux disease) Strep pharyngitis Seasonal allergies History of PCOS Anxiety and depression Social History Social History (Updated 04/25/24 @ 21:07 by Karmen Dixon NP) Smoking packs per day: 0.5 Smoking cigarettes per day: 10.0 Smoking status: Current every day smoker Tobacco type: cigarettes and e-cigarettes/vaping Alcohol intake: current Alcohol use details: rare social Substance use type: does not use Living arrangements: with family Gender identity (if verbalized by the patient): Female Comments At time of signature, agree with nursing past medical, surgical, social and family history. There is no relevant family history pertinent to the presenting complaint Exam Narrative: GENERAL: Well-appearing, well-nourished, and in no acute distress.afebrile HEAD: Normocephalic, atraumatic. NECK: Supple. no lymphadenopathy CHEST: Clear to auscultation. No respiratory distress.SAO2 98% on room air HEART: Regular rate and rhythm. No murmur heard. Normal peripheral pulses. ABDOMEN: Soft, nontender, nondistended, normal active bowel sounds. Positive for right CVA tenderness with no radiation of pain, no urinary symptoms. EXTREMITIES: Normal range of motion. No edema. SKIN: Warm, dry, no rash. NEURO: No focal deficits. Alert and oriented x3. Course Course Emergency Course: Patient is aware of diagnosis, understands and agrees to treatment plan.? Anticipatory guidance given.? Patient agrees to follow-up as directed and is aware of reasons to seek care at the emergency department. Portions of this record may have been created with voice recognition software Level of Care: Express Care Visit Vital Signs Vital signs: Vital Signs Temperature 36.6 C 06/05/24 17:50 Pulse Rate 110 H 06/05/24 17:50 Respiratory Rate 20 06/05/24 17:50 Blood Pressure 123/73 06/05/24 17:50 Pulse Oximetry 98 06/05/24 17:50 Oxygen Delivery Room Air 06/05/24 17:50 Temperature 36.6 C 06/05/24 17:50 Pulse Rate 110 H 06/05/24 17:50 Respiratory Rate 20 06/05/24 17:50 Blood Pressure 123/73 06/05/24 17:50 Pulse Oximetry 98 06/05/24 17:50 Oxygen Delivery Room Air 06/05/24 17:50 reviewed MDM - Female Genitourinary MDM Narrative Medical decision making narrative: Exam findings and UA show no acute concerns or changes; patient is non-toxic appearing and is in no distress.? Patient is appropriate for outpatient treatment and follow-up.Patient instructed to follow up with PCP in 2-3 days if no improvement Differential Diagnosis Differential diagnosis: Likely urinary tract infection, cystitis and other (muscle strain, right flank pain) Medical Records Attestation: I reviewed the patient's medical records. Lab Data Attestation: I reviewed the patient's lab results. Lab results narrative: see urine dip no blood or leukocytes noted in urine, Specific gravity 1.030 sent for culture Labs: Lab Results 06/05/24 Range/Units 18:00 POC Urine Color Yellow POC Urine Clarity Clear POC Urine pH 6.0 POC Ur Specif [place] 1.030 POC Urine Protein Negative (Negative) POC Ur Glucose (UA) Negative (Negative) POC Urine Ketones Negative (Negative) POC Urine Blood Negative (Negative) POC Urine Nitrite Negative (Negative) POC Urine Bilirubin Negative (Negative) POC Urine Urobilinogen 0.2 POC U Leukocyte Esteras Negative (Negative) reviewed Critical Care Time Critical Care Time Critical Care Time: No Discharge Plan Discharge Clinical Impression: Right flank pain Patient Disposition: Home, Self-Care Condition: Stable Instructions: Flank Pain (ED) Additional Instructions: Ice and heat to the area for 20-30 minute Increase oral fluids water and juices Gentle stretching exercises Gentle massage Caution with lifting, bending, stooping, twisting Avoid pushing, pulling take muscle relaxants as directed--caution drowsiness and no driving or alcohol take at bedtime Anti-inflammatory medicine as directed--take with food such as Ibuprofen 600 mg one tab TID for 2 days with food He may take the muscle relaxant and anti-inflammatory at the same time Follow-up with your PCP if not improving in 5-7 days If your symptoms persist, change or worsen significantly before you can contact your personal physician then please, without delay, go to the emergency department for further evaluation. Follow-up with PCP in 7-10 days or sooner if needed Patient Language: [place] Prescriptions: New cyclobenzaprine 10 mg tablet 10 mg PO HS Qty: 10 0RF ibuprofen 600 mg tablet 600 mg PO TID PRN (Reason: pain) Qty: 20 0RF Follow-up/Referrals: Obey,MD Augusto [Primary Care Provider] - Time of Disposition: 18:15 Quality [place] Coma Scale Eyes: Open Verbal: Oriented and Alert Motor: Follows Commands [place] Coma Total Score: 15
[2024-06-05 18:07] LABS: EDUAAPPEAR Clear; EDUABILI Negative (Negative); EDUABLOOD Negative (Negative); EDUACOLOR1 Yellow; EDUAGLUCOSE Negative (Negative); EDUAKETONE Negative (Negative); EDUALEUKO Negative (Negative); EDUANITRATE Negative (Negative); EDUAPROTEIN Negative (Negative); EDUAUROBILI 0.2
--- OUTSIDE RECORDS SUMMARY | 2024-06-05 19:20 | XMS_ITS | Referral Summary ---
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 57.1 % [facility] ([place] Comment: Interpretive Data Percent cell count reference ranges are not reported, since discordance with absolute values may lead to misinterpretation of CBC data. Current Interpretive Data was last revised on 2017. Imm gran pct 0.4 % [facility] ([place]) Comment: Interpretive Data Percent cell count reference ranges are not reported, since discordance with absolute values may lead to misinterpretation of CBC data. Current Interpretive Data was last revised on 2017. Lymphocyte pct 33.9 % [facility] ([place]) Comment: Interpretive Data Percent cell count reference ranges are not reported, since discordance with absolute values may lead to misinterpretation of CBC data. Current Interpretive Data was last revised on 2017. Monocyte pct 6.6 % [facility] ([place]) Comment: Interpretive Data Percent cell count reference ranges are not reported, since discordance with absolute values may lead to misinterpretation of CBC data. Current Interpretive Data was last revised on 2017. Eosinophil pct 1.9 % [facility] ([place]) Comment: Interpretive Data Percent cell count reference ranges are not reported, since discordance with absolute values may lead to misinterpretation of CBC data. Current Interpretive Data was last revised on 2017. Basophil pct 0.1 % [facility] ([place]) Comment: Interpretive Data Percent cell count reference ranges are not reported, since discordance with absolute values may lead to misinterpretation of CBC data. Current Interpretive Data was last revised on 2017. Blood 05/30/2024 12:3 8 AM HEAD ATHLETIC TRAINER 05/30/2024 12:43 AM HEAD ATHLETIC TRAINER us Dewey Shaffer MD LAB BLOOD ORDERABLES Final R esult [facility] ([place]) 1 [facility] [place] [address] * Pro B-type natriuretic peptide (05/30/2024 12:38 AM HEAD ATHLETIC TRAINER) NT-proBNP <36 <=300 pg/mL Comment: Interpretive Comments: A. Dyspnea in Acute Care Setting All Ages: < 300 pg/ml, acute heart failure unlikely. < 50 yrs: 300 - 450 pg/ml, further investigation warranted. > 450 pg/ml, acute heart failure likely. 50 - 74 yrs: 300 - 900 pg/ml, further investigation warranted. > 900 pg/ml, acute heart failure likely . > or = 75 yrs: 450 - 1800 pg/ml, further investigation warranted. > 1800 pg/ml, acute heart failure likely. B. Non-acute Setting < 75 yrs < 125 pg/ml, rules out heart failure. > or = 125 pg/ml, further investigation warranted. > or = 75 yrs < 450 pg/ml, rules out heart failure. > or = 450 pg/ml, further investigation warranted. - Knowledge of each individual patient's NT-proBNP range may be more useful than using similar cut-points for every patient. Please note that marked elevations in NT-proBNP levels may be observed in state other than Left Ventricular Congestive Failure, including: acute coronary syndromes, right heart strain/failure (including pulmonary embolism and cor pulmonale), critical illness, renal failure, as well as advanced age. - References: 1. Major JENKINS et.al. Eur Heart J. 2006:27:330-337. 2. Antoine RW, Deena ROBERTSON. J. AM Radha Cardiol: Cardiovasc Imag. 2009;2: 216- 225. Interpretive Data Last Revised Date: 2017. Blood 05/30/2024 12:3 8 AM HEAD ATHLETIC TRAINER 05/30/2024 12:43 AM HEAD ATHLETIC TRAINER us Dewey Shaffer MD LAB BLOOD ORDERABLES Final R esult [facility] ([place]) 1 [facility] [place] [address] * (ABNORMAL) CBC with auto differential (05/30/2024 12:38 AM HEAD ATHLETIC TRAINER) WBC 10.2(H) 3.8 - 9.9 K/cumm Hgb 12.0 11.9 - 15.5 g/dL [facility] ([place]) Hct 37.0 35.6 - 45.5 % [facility] ([place]) Plt 220 150 - 400 K/cumm [facility] ([place]) MPV 10.6 9.1 - 12.3 fL [facility] [place]) RBC 4.73 3.90 - 5.20 M/cumm [facility] ([place]) MCV 78.2(L) 81.3 - 96.4 fL [facility] [place]) MCH 25.4(L) 27.1 - 33.3 pg [facility] ([place]) MCHC 32.4 32.3 - 35.7 g/dL [facility] [place]) RDW CV 15.2(H) 11.1 - 14.9 % [facility] [place]) RDW SD 43.2 35.7 - 48.1 fL [facility] [place]) NRBC abs 0.02(H) 0.00 - 0.01 K/cumm [facility] [place]) Blood 05/30/2024 12:3 8 AM HEAD ATHLETIC TRAINER 05/30/2024 12:43 AM HEAD ATHLETIC TRAINER Dewey Shaffer MD LAB BLOOD ORDERABLES Final R esult Performing Organization Address City/[facility] Co de Phone Number [facility] 1 [facility] [employer] [address] * aPTT (05/30/2024 12:38 AM HEAD ATHLETIC TRAINER) [facility] aPTT 32 28 - 38 sec [facility] ([place]) Comment: Interpretive Data Heparin therapeutic range: 66.0 - 100.0 seconds. Range based on correlation with therapeutic heparin activity range of 0.3 - 0.7 Units/mL. Current interpretive data was last revised on 2022. Blood 05/30/2024 12:3 8 AM HEAD ATHLETIC TRAINER 05/30/2024 12:43 AM HEAD ATHLETIC TRAINER Dewey Shaffer MD LAB BLOOD ORDERABLES Final R esult Performing Organization Address City/State/[facility] Co de Phone Number [facility] 1 [facility] [employer] [place] [address] * Protime-INR (05/30/2024 12:38 AM HEAD ATHLETIC TRAINER) PT 11.2 9.7 - 13.0 sec [facility] ([place]) INR 1.04 0.90 - 1.20 [facility] ([place]) Comment: Interpretive data Oral anticoagulant therapeutic ranges: Venous thromboembolism prophylaxis or treatment: 2.0-3.0 CARDIOLOGY Standard range: 2.0-3.0 High-intensity range: 2.5-3.5 Refer to indication-specific guidelines for appropriate target ranges for prosthetic heart valve replacement. Current interpretive data was last revised on 2019. Blood 05/30/2024 12:3 8 AM HEAD ATHLETIC TRAINER 05/30/2024 12:43 AM HEAD ATHLETIC TRAINER Dewey Shaffer MD LAB BLOOD ORDERABLES [facility] Performing Organization Address [facility] Co de Phone Number [facility] ([place] 1 [facility] [place] [address] * hCG, blood, quantitative (05/30/2024 12:38 AM HEAD ATHLETIC TRAINER) hCG, quant <5.0 0.0 - 5.0 IUnits/L Comment: Interpretive Data Male: < 5 IU/L Non- premenopausal Female: <5 IU/L The Jose hCG Beta Quant assay procedure was used. Results from different manufacturers or methods may not be comparable. Serial testing should be performed using the same method. Interpretive Data was last revised on 2023 Blood 05/30/2024 12:3 8 AM HEAD ATHLETIC TRAINER 05/30/2024 12:43 AM HEAD ATHLETIC TRAINER Dewey Shaffer MD LAB BLOOD ORDERABLES Final R esult Performing Organization Address City/[facility] Co de Phone Number [facility] 1 [facility] [place] [address] * Magnesium (05/30/2024 12:38 AM HEAD ATHLETIC TRAINER) Magnesium 2.0 1.4 - 2.5 mg/dL Blood 05/30/2024 12:3 8 AM HEAD ATHLETIC TRAINER 05/30/2024 12:43 AM HEAD ATHLETIC TRAINER us Dewey Shaffer MD LAB BLOOD ORDERABLES Final R esult [facility] ([place]) 1 [facility] [place] [address] * Comprehensive metabolic panel (05/30/2024 12:38 AM HEAD ATHLETIC TRAINER) Sodium 136 135 - 145 mmol/L Potassium, pl 4.1 3.3 - 4.9 mmol/L [facility]) Chloride 102 97 - 110 mmol/L [facility]) CO2 23 22 - 32 mmol/L [facility] [place]) Anion gap 11 2 - 15 mmol/L [facility] [place]) BUN 12 6 - 25 mg/dL [facility]) Creatinine 0.74 0.60 - 1.10 mg/dL [facility] [place]) Glucose 112 70 - 199 mg/dL [facility] [place]) Comment: Interpretive Data Fasting glucose >/= 126 mg/dl is diagnostic for diabetes. Fasting is defined as no caloric intake for at least 8 hours. Fasting glucose between 100 mg/dl to 125 mg/dl is diagnostic of prediabetes. In a patient with classic symptoms of hyperglycemia or hyperglycemic crisis, a random glucose >/= 200 mg/dl is diagnostic for diabetes. In the absence of unequivocal hyperglycemia, results should be confirmed by repeat testing. The classification and Diagnosis of Diabetes Diabetes Care 2021; 46: S19-S40. Current interpretive data was last revised 2022. Calcium 9.0 8.5 - 10.3 mg/dL [facility]) Bilirubin, total <0.2 0.1 - 1.2 mg/dL [facility] ([place] Protein, pl 7.2 6.5 - 8.5 g/dL [facility] ([place]) Albumin 4.1 3.5 - 5.0 g/dL [facility] [place]) Alk phos 57 40 - 130 Units/L [facility] [place]) ALT 14 7 - 45 Units/L [facility] [place]) AST 19 10 - 45 Units/L [facility] [place]) Blood 05/30/2024 12:3 8 AM HEAD ATHLETIC TRAINER 05/30/2024 12:43 AM HEAD ATHLETIC TRAINER Dewey Shaffer MD LAB BLOOD ORDERABLES Final R esult [facility] ([place]) 1 [facility] [place] [address] * ECG 12 lead (05/30/2024 12:22 AM HEAD ATHLETIC TRAINER) 05/30/2024 12:2 2 AM HEAD ATHLETIC TRAINER Narrative [facility] - 05/31/2024 8:20 AM HEAD ATHLETIC TRAINER Vent Rate: 88 bpm RR Interval: 678 msec SD Interval: 136 msec QRS Duration: 92 msec QT Interval: 356 msec QTC Interval: 402 msec P-R-T [place]: 62 - 62 - 11 degrees IMPRESSION: SINUS RHYTHM WITH SINUS ARRHYTHMIA NONSPECIFIC T-WAVE ABNORMALITY BORDERLINE ECG Electronically Signed By: Parth Gomez MD [facility] Dewey Shaffer MD ECG ORDERABLES Final Result Performing Organization Address City/[facility] Co de Phone Number [employer] [facility] * SCAN - RADIOLOGY/IMAGING (04/24/2024) Anatomical Region Laterality Modality Other Augusto Barnhart MD Final Res ult * Pap and HPV, reflex to HPV Genotypes (02/15/2024 9:42 AM HEAD ATHLETIC TRAINER) CLINICAL INFORMATION: [facility] [employer] [facility] Comment: Previous abnormal ASCUS + HPV LMP [facility] Comment:01-24-24 Previous Pap [facility] Comment:NONE GIVEN Prev. Bx [facility] Comment:NONE GIVEN SOURCE: [employer] [facility] Comment:Cervix, Endocervix Pap, specimen adequacy [facility] [employer] [facility] Comment: Satisfactory for evaluation. Endocervical/transformation zone component present. HPV interp [employer] Comment: Cytology Results: Negative for intraepithelial lesion or malignancy. COMMENTS [facility] [employer] [facility] Comment: This Pap test has been evaluated with computer assisted technology. Station Baggage Agent [facility] [employer] [facility] Comment: TMK, CT(ASCP) CT screening location: [place] [address] [address] [place] [address] Review editing intern [facility] Comment: HILARIO, CT(ASCP) CT Screening location: [facility] Administration [place] [address] Comment [facility] Comment: EXPLANATORY NOTE: The Pap is [...] High Risk E6/E7 Not Detected NOT DETECTED [facility] Comment: Not Detected High Risk HPV types (16,18,31,33,35,39,45,51,52, 56,58,59,66,68) were not detected. Other HPV types which cause anogenital lesions may be present. The significance of the other types of HPV in malignant processes has not been established. Methodology: Real Time PCR Thin prep-Endocervica l 02/15/2024 9:42 AM HEAD ATHLETIC TRAINER 02/16/2024 4:31 AM HEAD ATHLETIC TRAINER us Saul Richards MD LAB CYTOLOGY ORDERABLES Fi nal Result [facility] [address] [address] [place] [address] [address] * Hepatitis C antibody Blood (05/17/2023 2:16 PM HEAD ATHLETIC TRAINER) Hep C Ab Nonreactive Nonreactive [facility] [...] last revised on 2019. Testing performed by: [facility], [address] [place] [address], [place]., [address] Blood 05/17/2023 2:16 PM HEAD ATHLETIC TRAINER 05/18/2023 9:16 AM HEAD ATHLETIC TRAINER us Evangelina Holloway NP LAB MICROBIOLOGY - GENERAL ORDER BHUPINDER Edited Result - Final [facility] ([place]) 1 [facility] [place] [address] from Last 3 Months or Most Recently Relevant to Health Maintenance Insurance [facility] Advance Directives For more information, please contact: [phone] Documents on File Type Date Recorded Patient Job Development Specialist Expl anation ADVANCE DIRECTIVE 03/23/2021 10:48 PM [...] 12:14 PM 05/20/2022 6:18 PM Care Teams Stationary Engineer Apprentice Relationship Specialty Start Date End Date Augusto Barnhart MD [address] [place] [address] PCP - General Family Medicine 01/31/20 Zackary Morfin MD Surgeon Trauma Surgery 01/27/20 Saul Rcihards MD [address] [place] [address] [place] [address] Internet Architect Obstetrics and Gynecology 03/19/21
--- OUTSIDE RECORDS SUMMARY | 2024-06-05 19:20 | XMS_ITS | Clinical Summary ---
Author Organization [facility] Address [address] [place] [address] Phone Care Team Providers Care Billing Typist Name Role Phone ALANA HERNANDEZ, ROBERTA Espino [...] Time Diagnosis NO SHOW ROBERTA WARNER MD [facility] BOARD HANDLER 08/16/2017 1:20PM 11:59PM Insurance Includes: Active Insurance Policies Plan Name Member ID Group # Subscriber Relationship Effect melvin Dates 1 - R [id number] DAVID ALBRECHT Child 2 - MEDICAID - NON [facility] [id number] JONNIE Clarissa ALBRECHT Self Clinical Notes Includes: Clinical Notes from this encounter No Clinical Notes Recorded
--- OUTSIDE RECORDS SUMMARY | 2024-06-05 19:20 | XMS_ITS | Clinical Summary ---
Author Organization [facility] Address [address] [place] [address] Phone Care Team Providers Care Government Contracts Manager Name Role Phone Kay Velasquez MD Unavailable [phone] Augusto Barnhart MD Primary Care Provider Allergies Active Allergy Reactions Criticality Noted Date [...] Combined (1 of 2 - PCV) 06/20/2014 Pap Smear 06/20/2016 Influenza Immunization (#1) 2023 10/0 03/2021, 03/19/2021, [...] all measures to stabilize patient. Care Teams Government Contracts Manager Relationship Specialty Start Date End Date Augusto Barnhart MD [address] [place] [address] PCP - General Family Medicine 03/08/20 Kay Velasquez MD Consulting Physician Obstetrics & Gynecology 02/19/17
--- OUTSIDE RECORDS SUMMARY | 2024-06-05 19:20 | XMS_ITS | Clinical Summary ---
Author Organization [facility] Address [facility] [place] [address] Care Team Providers Care Disease Management Nurse Name Role Phone Unavailable Primary Care Provider Unavailabl e Source Comments [facility],non-owned Affiliates and Associated Physician Practices is amultiple site organization consisting of ambulatory clinics and hospital sitesin [place], [place], [place] and [place]. This disclosure is being madepursuant to the Care Everywhere program and may not contain all information available regarding this patient. Last updated 17.[employer] [facility] Allergies No known active allergies Medications * [...]
--- OUTSIDE RECORDS SUMMARY | 2024-06-05 19:20 | XMS_ITS ---
Care Plan - [facility] Created on: June 05, 2024 TRNEAJONNIE : 1995 Sex: Female Author Organization [facility] Address [address] [place] [address] Phone Care Team Providers Care Flush Tester Name Role Phone ROBERTA WARNER MD Primary Care Provider [phone]
--- OUTSIDE RECORDS SUMMARY | 2024-06-05 19:20 | XMS_ITS | Referral Summary ---
Author Organization [facility] Address [facility] [facility] [place] [address] Care Team Providers Care Septic Pump Truck Driver Name Role Phone Unavailable Primary Care Provider Unavailabl e Source Comments [facility],non-owned Affiliates and Associated Physician Practices is amultiple site organization consisting of ambulatory clinics and hospital sitesin [place], [place], [place] and [place]. This disclosure is being madepursuant to the Care Everywhere program and may not contain all information available regarding this patient. Last updated 17.[facility] Allergies No known active allergies Medications * [...]
--- OUTSIDE RECORDS SUMMARY | 2024-06-05 19:20 | XMS_ITS | Patient Health Summary ---
Author Organization [facility] [employer] Address [address] [place] [address] Care Team Providers Care Furniture Repairer Name Role Phone Unavailable Primary Care Provider Unavailabl e Note from [facility],non-owned Affiliates and Associated Physician Practices is amultiple site organization consisting of ambulatory clinics and hospital sitesin [place], [place], [place] and [place]. This disclosure is being madepursuant to the Care Everywhere program and may not contain all information available regarding this patient. Last updated 17.[facility] [employer] Allergies No known active allergies Medications * [...] (PPROM) with unknown onset of labor ([facility]) * CBC W AUTO DIFFERENTIAL(Performed 09/10/2015) Performed for premature rupture of membranes (PPROM) with unknown onset of labor (HCC) * CHLAMYDIA + GC AMPLIFIED PROBE(Performed 09/10/2015) Performed for premature rupture of membranes (PPROM) with unknown onset of labor ([facility]) * CULTURE STREP B(Performed 09/10/2015) Performed for premature rupture of membranes (PPROM) with unknown onset of labor ([facility]) * CULTURE URINE(Performed 01/12/2014) Results * IMAGING/RADIOLOGY/XRAY RESULTS ORDER (10/02/2015 5:02 AM CDT) Anatomical Region Laterality Modality Other Narrative 10/02/2015 5:02 AM CDT Ordered by an unspecified provider. Scanned Document IMAGING * (ABNORMAL) CBC W/O DIFFERENTIAL (09/27/2015 11:20 AM CDT) WBC 13.7(H) 4.4 - 10.7 x10E9/L 09/27/2015 11:49 AM CDT [facility] RBC 4.13 3.80 - 5.20 x10E12/L 09/27/2015 11:49 AM CDT [facility] Hemoglobin 11.2(L) 12.0 - 15.6 gm/dL 09/27/2015 11:49 AM CDT [facility] Hematocrit 33.9(L) 35.9 - 45.5 % 09/27/2015 11:49 AM CDT [facility] MCV 82.1 80.7 - 98.3 fl 09/27/2015 11:49 AM CDT [facility] MCH 27.1 26.7 - 34.0 pg 09/27/2015 11:49 AM CDT [facility] MCHC 33.0 30.8 - 35.9 gm/dL 09/27/2015 11:49 AM CDT [facility] Platelet Count 173 153 - 416 x10E9/L 09/27/2015 11:49 AM CDT [facility] RDW-CV 13.5 12.1 - 14.9 % 09/27/2015 11:49 AM CDT [facility] MPV 11.5 9.4 - 12.9 fl 09/27/2015 11:49 AM CDT [facility] Blood BLOOD SPECIMEN / Unknown Lab Venipuncture / Unknown 09/27/2015 11:20 AM CDT 09/27/2015 11:38 AM CDT Meli Conti MD LAB - HEMATOLOGY OR DERABLES Performing Organization Address [facility]/State/[facility] Co de Phone Number [facility] [address], [place] [id number] * (ABNORMAL) BLOOD GASES CORD ART (ISTAT) (09/26/2015 7:43 PM CDT) pH Cord Arterial POCT 7.33 7.20 - 7.34 pH 09/26/2015 7:57 PM CDT [facility] pCO2 Cord Arterial POCT 44.9(L) 45 - 55 mmHg 09/26/2015 7:57 PM CDT [facility] pO2 Cord Arterial POCT 23 12 - 25 mmHg 09/26/2015 7:57 PM CDT [facility] HCO3 Cord Arterial POCT 23.6 15 - 29 mmol/L 09/26/2015 7:57 PM CDT [facility] BE Cord Arterial POCT -3(L) -2.9 - 8.3 mmol/L 09/26/2015 7:57 PM CDT [facility] TCO2 Cord Arterial POCT 25 mmol/L 09/26/2015 7:57 PM CDT [facility] O2 Saturation Cord Art % Calc POCT 34 % 09/26/2015 7:57 PM CDT [facility] Site CORD ART 09/26/2015 7:57 PM CDT [facility] Sample iSTAT CORD A 09/26/2015 7:57 PM CDT [facility] Blood CORD BLOOD SPECIMEN / Unknown 09/26/2015 7:43 PM CDT 09/26/2015 7:57 PM CDT Dewey Pete MD LAB - POINT OF CARE ORDERABLES Performing Organization Address City/State/[facility] Co de Phone Number [facility] [address] [place] [address] * NEURAXIAL BLOCK (09/26/2015 3:00 PM CDT) [...] Positive(A ) Negative 09/26/2015 6:27 AM CDT [facility] Fluid AMNIOTIC FLUID SPECIMEN / Unknown Collection / Unknown 09/26/2015 6:06 AM CDT 09/26/2015 6:16 AM CDT Narrative [facility] - 09/26/2015 6:27 AM CDT [...] MD LAB - BODY FLUID ORD ERABLES [facility] [address], [place] [id number] * TYPE + SCREEN PANEL (09/25/2015 9:09 PM CDT) Only the most recent of2 resultswithin the time period is included. Pathologist [facility] ABO A 09/25/2015 10:07 PM CDT [facility] Rh Type Positive 09/25/2015 10:07 PM CDT [facility] Comment:History check perfor med. No retype required. Antibody Screen Negative 09/25/2015 10:07 PM CDT [facility] Miscellaneous samples (specimen) BLOOD SPECIMEN / Unknown Venipuncture / Unknown 09/25/2015 9:09 PM CDT 09/25/2015 9:15 PM CDT Mihaela Alicia MD LAB - BLOOD BANK ORD ERABLES [facility] [address] * (ABNORMAL) CBC W AUTO DIFFERENTIAL (09/25/2015 9:09 PM CDT) Only the most recent of2 resultswithin the time period is included. Pathologist [facility] WBC 13.5(H) 4.4 - 10.7 x10E9/L 09/25/2015 9:20 PM CDT [facility] WBC Corrected x10E9/L 09/25/2015 9:20 PM CDT [facility] RBC 4.32 3.80 - 5.20 x10E12/L 09/25/2015 9:20 PM CDT [facility] Hemoglobin 11.8(L) 12.0 - 15.6 gm/dL 09/25/2015 9:20 PM CDT [facility] Hematocrit 35.2(L) 35.9 - 45.5 % 09/25/2015 9:20 PM T [facility] MCV 81.5 80.7 - 98.3 fl 09/25/2015 9:20 PM CDT [facility] MCH 27.3 26.7 - 34.0 pg 09/25/2015 9:20 PM CDT [facility] MCHC 33.5 30.8 - 35.9 gm/dL 09/25/2015 9:20 PM CDT [facility] Platelet Count 197 153 - 416 x10E9/L 09/25/2015 9:20 PM T [facility] RDW-CV 13.5 12.1 - 14.9 % 09/25/2015 9:20 PM CDT [facility] MPV 11.5 9.4 - 12.9 fl 09/25/2015 9:20 PM CDT [facility] Neutrophils % 75.5(H) 44.0 - 73.0 % 09/25/2015 9:20 PM CDT [facility] Lymphocytes % 15.8(L) 20.0 - 43.0 % 09/25/2015 9:20 PM CDT [facility] Monocytes % 7.3 5.0 - 13.0 % 09/25/2015 9:20 PM CDT [facility] Eosinophils % 0.7 0.0 - 6.0 % 09/25/2015 9:20 PM CDT [facility] Basophils % 0.1 0.0 - 2.0 % 09/25/2015 9:20 PM CDT [facility] Immature Granulocytes 0.6 0 - 1 % 09/25/2015 9:20 PM CDT [facility] Neutrophil Absolute 10.18(H) 2.01 - 7.14 x10E9/L 09/25/2015 9:20 PM CDT [facility] Lymphocytes Absolute 2.13 1.07 - 3.94 x10E9/L 09/25/2015 9:20 PM CDT [facility] Monocytes Absolute 0.98 0.26 - 1.07 x10E9/L 09/25/2015 9:20 PM CDT [facility] Eosinophils Absolute 0.09 0 - 0.47 x10E9/L 09/25/2015 9:20 PM CDT [facility] Basophils Absolute 0.01 0 - 0.08 x10E9/L 09/25/2015 9:20 PM CDT [facility] Immature Granulocytes Absolute 0.08(H) 0.00 - 0.06 x10E9/L 09/25/2015 9:20 PM CDT [facility] nRBC Auto 0 /100 WBC 09/25/2015 9:20 PM CDT [facility] Blood BLOOD SPECIMEN / Unknown Venipuncture / Unknown 09/25/2015 9:09 PM CDT 09/25/2015 9:15 PM CDT Mihaela Alicia MD LAB - HEMATOLOGY ORD ERABLES [facility] [address] [place] [address] * (ABNORMAL) GLUCOSE - POINT OF CARE (09/24/2015 11:10 AM CDT) Only the most recent of59 resultswithin the time period is included. Glucose WB/POC 149(H) 70 - 106 mg/dL 09/24/2015 6:16 PM CDT [facility] Blood BLOOD SPECIMEN / Unknown 09/24/2015 11:10 AM CDT 09/24/2015 6:16 PM CDT Dewey Pete MD LAB - POINT OF CARE ORDERABLES Performing Organization Address City/[facility] Co de Phone Number [facility] [address] [place] [address] * GLUCOSE PROTEIN KETONE URINE - POINT [...] LAB - POINT OF CA RE ORDERABLES [facility] POCT TESTING [address] [place] [address] * SONOGRAM - COMPLETE (09/11/2015 10:59 AM CDT) Anatomical Region Laterality Modality Other 09/11/2015 10:5 9 AM CDT Narrative 09/11/2015 4:18 PM CDT [facility] PHONE: FAX: Pat. Name: JONNIE RAVI Pat. No: [id number] Study Date: 09/11/2015 10:59am , Age: 03 1995, 20 Pregnancies: 2, Para 0, Ab 1 Height: 62 in Weight: 148 lb LMP: Unknown GA by US: 32w1d GA Selected: 32w1d (Sonographic) DIPAK: 11/05/2015 Referring MD: Kay Velasquez MD Hand Stone Polisher: Miriam Fraga RDMS Hist/Ind: PPROM MEASUREMENTS & AGE GROWTH EVALUATION Measurement GA Range Srce %for GA Ratios ----- ---- ------- BPD 7.9 cm 31w4d (78x0a-31c2j) Hadl BPD 42% FL/BPD 0.70 (0.71 - 0.87* HC 27.1 cm 29w4d (62g5y-46f6h) Hadl HC <05 FL/AC 0.19 (0.20 - 0.24* AC 28.7 cm 32w5d (52r9b-71o9d) Hadl AC 58% HC/AC 0.94 (0.95 - 1.14* FL 5.5 cm 29w1d (51o0n-90m2d) Hadl FL <05 CI 0.86 (0.70 - 0.86) HL 5.0 cm 29w0d (44z3u-01w7a) Brendan HL <05 GA for sonogram 32w1d (41y6l-31v6a) Weight Estimate: based on (BPD,AC) Hadlock Weight: 1731 gm (5699-9161) Hadlo : 3lbs, 13oz Normal: 1993 gm (5230-6077) Hadlo Wt% 25% for 32w1d Heart Rate: [...] ultrasound as clinically indicated per the Inpatient Senior Treasury Analyst team. Thank you for allowing us the opportunity to care for your patient. cc: Inpatient at time of study Loraine Bhatti MD <Electronic Signature> 09/11/2015 04:18pm Dewey Pete MD [facility] ORDERABLES * DRUG SCREEN TOX URINE PANEL (09/10/2015 3:31 PM CDT) Amphetamines Screen Urine Not Detected Not Detected 09/10/2015 4:10 PM CDT [facility] Barbiturates Screen Urine Not Detected [...] Detected Not Detected 09/10/2015 4:10 PM CDT [facility] Urine URINE / Unknown Collection / Unknown 09/10/2015 3:31 PM CDT 09/10/2015 3:43 PM CDT [facility] - 09/10/2015 4:10 PM CDT This [...] MD LAB - URINE CHEMI STRY ORDERABLES [facility] [address] [place] [address] * (ABNORMAL) COMPREHENSIVE METABOLIC PANEL (09/10/2015 3:29 PM CDT) [facility] Glucose 68(L) 74 - 106 mg/dL 09/10/2015 4:31 PM CDT [facility] Sodium 137 136 - 145 mmol/L 09/10/2015 4:31 PM CDT [facility] Potassium 3.9 3.5 - 5.1 mmol/L 09/10/2015 4:31 PM CDT [facility] Chloride 105 98 - 107 mmol/L 09/10/2015 4:31 PM CDT [facility] CO2 23 22 - 31 mmol/L 09/10/2015 4:31 PM CDT [facility] Calcium 8.7 8.5 - 10.1 mg/dL 09/10/2015 4:31 PM CDT [facility] Anion Gap 9 5 - 20 mmol/L 09/10/2015 4:31 PM CDT [facility] BUN 5(L) 7 - 21 mg/dL 09/10/2015 4:31 PM CDT [facility] Creatinine 0.53 0.50 - 1.30 mg/dL 09/10/2015 4:31 PM CDT [facility] Alkaline Phosphatase 97 38 - 126 U/L 09/10/2015 4:31 PM CDT [facility] ALT 24 12 - 78 U/L 09/10/2015 4:31 PM CDT [facility] AST 14 5 - 40 U/L 09/10/2015 4:31 PM CDT [facility] Protein Total 7.3 6.4 - 8.2 gm/dL 09/10/2015 4:31 PM CDT [facility] Albumin 2.6(L) 3.4 - 5.0 gm/dL 09/10/2015 4:31 PM CDT [facility] Bilirubin Total 0.4 0.2 - 1.0 mg/dL 09/10/2015 4:31 PM CDT [facility] eGFR by MDRD >60 >60 mL/min/1.7 3m2 09/10/2015 4:31 PM CDT [facility] eGFR by MDRD >60 >60 mL/min/1.7 3m2 09/10/2015 4:31 PM CDT [facility] Blood BLOOD SPECIMEN / Unknown Venipuncture / Unknown 09/10/2015 3:29 PM CDT 09/10/2015 3:43 PM CDT Maricruz Coley MD LAB - CHEMISTRY O RDERABLES [facility] [address] [place] [address] * CHLAMYDIA + GC AMPLIFIED PROBE (09/10/2015 2:57 PM CDT) Chlamydia Amplified Probe Negative Negative 09/11/2015 6:59 AM CDT [facility] GC Amplified Probe Negative Negative 09/11/2015 6:59 AM CDT [facility] Microbiology PART OF UTERINE CERVIX / Unknown Collection / Unknown 09/10/2015 2:57 PM CDT 09/10/2015 3:43 PM CDT Narrative [facility] - 09/11/2015 6:59 AM CDT Results based on detection/no detection of ribosomal RNA by amplified method. Maricruz Coley MD LAB - MICROBIOLOG Y ORDERABLES Performing Organization Address City/[facility]/ZIP Co de Phone Number [facility] [address] [place] [address], [facility] [phone] * CULTURE STREP B (09/10/2015 2:57 PM CDT) Culture Negative for Beta Hemolytic Streptococcus Group B DENNIS 09/13/2015 10:26 AM CDT [facility] Microbiology MISCELLANEOUS SAMPLES / Unknown Collection / Unknown 09/10/2015 2:57 PM CDT 09/10/2015 3:43 PM CDT Maricruz Coley MD LAB - MICROBIOLOG Y ORDERABLES Performing Organization Address [facility] Co de Phone Number [facility] [address] [place] [address], [facility] [phone] * (ABNORMAL) CULTURE URINE (01/12/2014 4:25 PM CDT) Culture Urine ESCHERICHIA COLI(A) [facility] Comment:100,000 CFU/ML Esche richia Coli Urine specimen (specimen) URINE SPECIMEN OBTAINED BY CLEAN CATCH PROCEDURE / Unknown 01/12/2014 4:25 PM CDT 01/12/2014 9:47 PM CDT Narrative [facility] - 01/14/2014 11:42 AM CDT [id number] Ha Loc/Rm/Bed: EXPCARE B// CLN CATCH U [...] - MICROBIOLOG Y ORDERABLES Performing Organization Address City/State/[facility] Co de Phone Number [facility] [address] [phone]
--- OUTSIDE RECORDS SUMMARY | 2024-06-05 19:20 | XMS_ITS | Clinical Summary ---
Author Organization [facility] Address [address] [place] [address] Phone Care Team Providers Care Systems Analyst Developer Name Role Phone ALANA HERNANDEZ, ROBERTA Espino [...] Relationship Effect melvin Dates 1 - [id number] DAVID ALBRECHT Child 2 - MEDICAID - NON [facility] [id number] JONNIEJoan ALBRECHT Self Clinical Notes Includes: Clinical Notes from this encounter No Clinical Notes Recorded
--- OUTSIDE RECORDS SUMMARY | 2024-06-05 19:20 | XMS_ITS | Clinical Summary ---
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 Dewey Shaffer MD LAB BLOOD ORDERABLES Final R esult [facility] ([place]) [address] [place] [address] * Comprehensive metabolic panel (05/30/2024 12:38 AM MARRIAGE COUNSELOR MINISTER) [facility] Sodium 136 135 - 145 mmol/L Potassium, pl 4.1 3.3 - 4.9 mmol/L [facility] ([place]) Chloride 102 97 - 110 mmol/L [facility] ([place]) CO2 23 22 - 32 mmol/L [facility] ([place]) Anion gap 11 2 - 15 mmol/L [facility] ([place]) BUN 12 6 - 25 mg/dL [...] <0.2 0.1 - 1.2 mg/dL [facility] ([place]) Protein, pl 7.2 6.5 - 8.5 g/dL [facility] ([place]) Albumin 4.1 3.5 - 5.0 g/dL [facility] ([place]) Alk phos 57 40 - 130 Units/L [facility] ([place]) ALT 14 7 - 45 Units/L [facility] ([place]) AST 19 10 - 45 Units/L [facility] ([place]) Blood 05/30/2024 12:3 8 AM MARRIAGE COUNSELOR MINISTER 05/30/2024 12:43 AM MARRIAGE COUNSELOR MINISTER Dewey Shaffer MD LAB BLOOD ORDERABLES Final R esult [facility] ([place]) 1 [facility] Department [place] [address] * ECG 12 lead (05/30/2024 12:22 AM MARRIAGE COUNSELOR MINISTER) 05/30/2024 12:2 2 AM MARRIAGE COUNSELOR MINISTER Narrative [facility] - 05/31/2024 8:20 AM MARRIAGE COUNSELOR MINISTER Vent Rate: 88 bpm RR Interval: 678 msec ND Interval: 136 msec QRS Duration: 92 msec QT Interval: 356 msec QTC Interval: 402 msec P-R-T [place]: 62 - 62 - 11 degrees IMPRESSION: SINUS RHYTHM WITH SINUS ARRHYTHMIA NONSPECIFIC T-WAVE ABNORMALITY BORDERLINE ECG Electronically Signed By: Parth Gomez MD B Dewey Shaffer MD ECG ORDERABLES Final Result [facility] * SCAN - RADIOLOGY/IMAGING (04/24/2024) Anatomical Region Laterality Modality Other Augusto Barnhart MD Final Res ult * Pap and HPV, reflex to HPV Genotypes (02/15/2024 9:42 AM MARRIAGE COUNSELOR MINISTER) CLINICAL INFORMATION: [facility] Comment: Previous abnormal ASCUS + HPV LMP [facility] Comment:01-24-24 Previous Pap [facility] Comment:NONE GIVEN Prev. Bx [facility] Comment:NONE GIVEN SOURCE: [facility] Comment:Cervix, Endocervix Pap, specimen adequacy [facility] Comment: Satisfactory for evaluation. Endocervical/transformation zone component present. HPV interp [facility] Comment: Cytology Results: Negative for intraepithelial lesion or malignancy. COMMENTS [facility] Comment: This Pap test has been evaluated with computer assisted technology. Sieve Grader Tender Alrfedo [facility] Comment: LUCIANOK, CT(ASCP) CT screening location: [place] [address] [address] Review tube former operator [facility] Comment: HILARIO CT(ASCP) CT Screening location: [facility] [address] [address] Comment [facility] Comment: EXPLANATORY NOTE: The Pap is [...] PCR Thin prep-Endocervica l 02/15/2024 9:42 AM MARRIAGE COUNSELOR MINISTER 02/16/2024 4:31 AM MARRIAGE COUNSELOR MINISTER Saul Richards MD LAB CYTOLOGY ORDERABLES Fi nal Result Performing Organization Address City/[facility]/ZIP Co de Phone Number [facility] [address] [place] [address] [address] * Hepatitis C antibody Blood (05/17/2023 2:16 PM MARRIAGE COUNSELOR MINISTER) Hep C Ab Nonreactive Nonreactive [facility] [...] last revised on 2019. Testing performed by: [facility], [address] [place] [address]., [id number] Blood 05/17/2023 2:16 PM MARRIAGE COUNSELOR MINISTER 05/18/2023 9:16 AM MARRIAGE COUNSELOR MINISTER us Evangelina Holloway NP LAB MICROBIOLOGY - GENERAL ORDER BHUPINDER Edited Result - Final Performing Organization Address City/[facility]/ZIP Co de Phone Number [facility] ([place]) 1 [facility] Department [place] [address] from Last 3 Months or Most Recently Relevant to Health Maintenance Insurance [facility] Advance Directives For more information, please contact: [phone] Documents on File Type Date Recorded Patient Service Center Representative Expl anation ADVANCE DIRECTIVE 03/23/2021 10:48 PM [...] 12:14 PM 05/20/2022 6:18 PM Care Teams Renewable Energy Broker Relationship Specialty Start Date End Date Augusto Barnhart MD [address] [place] [address] PCP - General Family Medicine 01/31/20 Zackary Morfin MD Surgeon Trauma Surgery 01/27/20 Saul Richards MD [address] [place] [address] [address] [place] [address] Level Vial Sealer Obstetrics and Gynecology 03/19/21
--- OUTSIDE RECORDS SUMMARY | 2024-06-05 19:20 | XMS_ITS | Encounter Summary ---
Author Organization [facility] Healthcare Address [address] [place] [address] Care Team Providers Care Children'S Attendant Name Role Phone Zackary Morfin MD Unavailable [phone] Augusto Barnhart MD Primary Care Provider [phone] Saul Richards MD Unavailable [phone] Ashleigh Nuñez MA Unavailable Encounter Details Date Type Department Care Team (Late st Contact Info) Description 06/01/2024 Results Follow-Up [facility] [address] [place] [address] Augusto Barnhart MD [address] [place] [address] Social History Tobacco Use Types [...] on file Legal Sex Female 9:59 AM DRILL PRESSER Gender Identity Female 09/26/2020 7:33 AM CDT Sexual Orientation Straight 09/26/2020 7: 33 AM CDT documented as of this encounter Plan of Treatment Not on file documented as of this encounter Visit Diagnoses Not on filedocumented in this encounter Care Teams Children'S Attendant Relationship Specialty Start Date End Date Augusto Barnhart MD [address] [place] [address] PCP - General Family Medicine 01/31/20 Zackary Morfin MD Surgeon Trauma Surgery 01/27/20 Saul Richards MD [address] [place] [address] Manager Medical Obstetrics and Gynecology 03/19/21 Ashleigh Nuñez MA [address] [facility] [address] [place] [address] ACO Care Bit Shaver 06/01/24 06/01/24 documented as of this encounter
--- OUTSIDE RECORDS SUMMARY | 2024-06-05 19:21 | XMS_ITS | Clinical Summary ---
Author Organization [facility] [[email or web address]] Address [address] [place] [address] Phone Care Team Providers Care Electrotherapist Name Role Phone ALANA HERNANDEZ, ROBERTA Espino Primary Care Provider [phone] Reason for Visit and Chief Complaint [Patient Encounter] Plan of Treatment Pending Tests Order Diagnosis Results Due Ordering P rovider Lab HCG, Serum, Quant 03/24/17 ROBERTA WARNER MD Last Documented On 8 11:18AM ; [facility] [[email or web address]] Assessments Includes: Assessments from this encounter No [...] Subscriber Relationship Effect melvin Dates 1 - [facility] [id number] DAVID ALBRECHT Child 2 - MED[facility]ID [facility] [id number] JONNIE ALBRECHT Self Clinical Notes Includes: Clinical Notes from this encounter No Clinical Notes Recorded
--- OUTSIDE RECORDS SUMMARY | 2024-06-05 19:21 | XMS_ITS | Clinical Summary ---
Author Organization [facility] Address [address] [place] [address] Phone Care Team Providers Care Clinic Nurse Name Role Phone ROBERTA WARNER MD Primary [...] Relationship Effect melvin Dates 1 - [id number] DAVID ALBRECHT Child 2 - MEDICAID - NON [facility] [id number] JONNIE ALBRECHT Self Clinical Notes Includes: Clinical Notes from this encounter No Clinical Notes Recorded
--- OUTSIDE RECORDS SUMMARY | 2024-06-05 19:21 | XMS_ITS ---
Author Organization [facility] Address [address] [place] [address] Phone Care Team Providers Care Coil Binder Name Role Phone ROBERTA WARNER MD Primary Care Provider [phone] Problems Includes: Active, inactive, and resolved Problems All Visits Onset Date Resolved Date Provider Condition S tatus History of Abnormal Pap Smear 04/12/2015 Unknown ROBERTA WARNER MD Resolved Last Documented On 06/11/2016 3:00PM ; [facility] Note: was Closed. History of Depression 04/12/2015 Unknown ROBERTA WARNER MD Resolved Last Documented On 06/11/2016 3:00PM ; [facility] Note: was Closed. Tobacco Use 04/12/2015 Unknown ROBERTA WARNER MD Resolve d Last Documented On 06/11/2016 3:00PM ; [facility] Note: was Closed. Tobacco Use 04/12/2015 Unknown ROBERTA WARNER MD Resolve d Last Documented On 06/11/2016 3:00PM ; [facility] Note: was Closed. Plan of Treatment Findings Encounter Date Ordered Clinical summary pro vided to patient RETURN OB EXAM with ROSSI Rosie REESE VALARIE-BC 08/15/2015 Last Documented On 6 3:42PM ; [facility] Ordered Clinical summary pro vided to patient RETURN OB EXAM with ROSSI Rosie REESE VALARIE-BC 05/16/2015 Last Documented On 6 11:02AM ; [facility] Instructions to patient Instructions for patient : B reast Self Exam discussed Last Documented On 7 4:39PM ; [facility] Instructions for patient : K eep the area around the vulva dry. Allow the area to have exposure to air. Avoid irritants such as fabric softeners and perfumed soaps.~ Last Documented On 5 2:49PM ; [facility] Education and Decision Aids were provided during visit for: Patient counseling : Use of oral contraceptives discussed in detail including rare occurrence of heart attack, stroke, and leg clots. Patient understands that smoking increases the risk of serious side effects with any steroid-based contraceptive method Last Documented On 7 4:41PM ; [facility] STD screening offered and de clined Last Documented On 7 4:39PM ; [facility] INFORMED CONSENT DISCUSSION: Colposcopy was discussed in detail including risk of post procedure bleeding. Patient is not to have intercourse for 5 days following the procedure. Patient expressed understanding of the above and consented to the procedure Last Documented On 6 9:40AM ; [facility] Patient counseling : Use of oral contraceptives discussed in detail including rare occurrence of heart attack, stroke, and leg clots. Patient understands that smoking increases the risk of serious side effects with any steroid-based contraceptive method Last Documented On 5 10:58AM ; [facility] Assessments Includes: Assessments for all patient encounters Findings Encounter Date Contraceptive management MED CHECK with ROBERTA JODRAN MD 10/12/2016 Last Documented On 7 4:54PM ; [facility] Labial abscess MED CHECK with ROBERTA WARNER MD 10/12/2016 Last Documented On 7 4:54PM ; [facility] Polycystic Ovarian Syndrome (PCOS) MED CHECK wit h ROBERTA WARNER MD 10/12/2016 Last Documented On 7 4:54PM ; [facility] Routine pelvic exam MED CHECK with ROBERTA WARNER MD 10/12/2016 Last Documented On 7 4:54PM ; [facility] Contraceptive management PROBLEM VISIT with ROBERTA WARNER MD 06/26/2016 Last Documented On 7 2:23PM ; [facility] Polycystic Ovarian Syndrome (PCOS) PROBLEM VISIT with ROBERTA WARNER MD 06/26/2016 Last Documented On 7 2:23PM ; [facility] Contraceptive management RECHECK with ROBERTA LOPEZ MD 06/23/2016 Last Documented On 7 10:51AM ; [facility] Menometrorrhagia RECHECK with ROBERTA WARNER MD 0 06/23/2016 Last Documented On 7 10:51AM ; [facility] Polycystic Ovarian Syndrome (PCOS) RECHECK with ROBERTA WARNER MD 06/23/2016 Last Documented On 7 10:51AM ; [facility] Contraceptive management: In sertion of IUD PROBLEM VISIT with ROBERTA WARNER MD 04/17/2016 Last Documented On 7 2:05PM ; [facility] Nonpuerperal galactorrhea PROBLEM VISIT with EWELINA WARNER MD 04/17/2016 Last Documented On 7 2:05PM ; [facility] Oligomenorrhea PROBLEM VISIT with ROBERTA WARNER MD 04/17/2016 Last Documented On 7 2:05PM ; [facility] Secondary amenorrhea PROBLEM VISIT with ROBERTA JORDAN MD 04/17/2016 Last Documented On 7 2:05PM ; [facility] depression POST VISIT with EWELINA WARNER MD 02/11/2016 Last Documented On 6 2:34PM ; [facility] Normal checkup (6 - 42 wk) RETURN OB EX AM with ROBERTA WARNER MD 08/29/2015 Last Documented On 6 4:19PM ; [facility] Normal checkup (6 - 42 wk) RETU RN OB EXAM with ROSSI CHOUDHURY 08/15/2015 Last Documented On 6 3:42PM ; [facility] Normal checkup (6 - 42 wk) [Pat ient Encounter] with ROBERTA WARNER MD 08/06/2015 Last Documented On 6 10:14AM ; [facility] Normal checkup (6 - 42 wk) RETURN OB EX AM with ROBERTA WARNER MD 08/01/2015 Last Documented On 6 9:47AM ; [facility] Normal checkup (6 - 42 wk) RETU RN OB EXAM with ROSSI CHOUDHURY 07/11/2015 Last Documented On 6 3:55PM ; [facility] Normal checkup (6 - 42 wk) * PHONE CALL with ROBERTA WARNER MD 06/27/2015 Last Documented On 6 11:00AM ; [facility] Normal checkup (6 - 42 wk) RETURN OB EX AM with ROBERTA WARNER MD 06/13/2015 Last Documented On 6 4:15PM ; [facility] Normal checkup (6 - 42 wk) RETU RN OB EXAM with ROSSI CHOUDHURY 05/16/2015 Last Documented On 6 11:02AM ; [facility] Assessment of abnormal Pap s mear: atypical squamous cells of undetermined significance COLPOSCOPY with ROBERTA WARNER MD 04/29/2015 Last Documented On 6 10:06AM ; [facility] Assessment of cervical high risk human papilloma virus DNA test was positive COLPOSCOPY with ROBERTA WARNER MD 04/29/2015 Last Documented On 6 10:06AM ; [facility] Normal checkup (6 - 42 wk) COLPOSCOPY w ith ROBERTA WARNER MD 04/29/2015 Last Documented On 6 10:06AM ; [facility] Normal checkup (6 - 42 wk) NEW OB EXAM with ROBERTA WARNER MD 04/12/2015 Last Documented On 6 4:19PM ; [facility] 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 MD 08/21/2014 Last Documented On 5 2:54PM ; [facility] Contraceptive management NEW HEAVY RAIL TRAIN OPERATOR EXAM with ROBERTA WARNER MD 06/26/2014 Last Documented On 5 11:01AM ; [facility] Female pelvic pain NEW HEAVY RAIL TRAIN OPERATOR EXAM with ROBERTA RODRIGUEZ MD 06/26/2014 Last Documented On 5 11:01AM ; [facility] Ovarian cyst NEW HEAVY RAIL TRAIN OPERATOR EXAM with ROBERTA WARNER MD 06/26/2014 Last Documented On 5 11:01AM ; [facility] Instructions Includes: Instructions for all patient encounters Instructions to patient Instructions for patient : B reast Self Exam discussed Last Documented On 7 4:39PM ; [facility] Instructions for patient : K eep the area around the vulva dry. Allow the area to have exposure to air. Avoid irritants such as fabric softeners and perfumed soaps.~ Last Documented On 5 2:49PM ; [facility] Education and Decision Aids were provided during visit for: Patient counseling : Use of oral contraceptives discussed in detail including rare occurrence of heart attack, stroke, and leg clots. Patient understands that smoking increases the risk of serious side effects with any steroid-based contraceptive method Last Documented On 7 4:41PM ; [facility] STD screening offered and de clined Last Documented On 7 4:39PM ; [facility] INFORMED CONSENT DISCUSSION: Colposcopy was discussed in detail including risk of post procedure bleeding. Patient is not to have intercourse for 5 days following the procedure. Patient expressed understanding of the above and consented to the procedure Last Documented On 6 9:40AM ; [facility] Patient counseling : Use of oral contraceptives discussed in detail including rare occurrence of heart attack, stroke, and leg clots. Patient understands that smoking increases the risk of serious side effects with any steroid-based contraceptive method Last Documented On 5 10:58AM ; [facility] Medical Equipment - Implanted Devices Includes: Current and historical Devices No Medical Equipment Recorded Medications Includes: Current and historical Medications Past Medications on file NuvaRing 0.12-0.015MG/24HR V aginal Ring 08/06/2017 - 09/03/2017 Provider: ROBERTA WARNER MD Diagnosis: i ring vaginally X 3 weeks, remove, then insert new ring 1 week later Last Documented On 08/06/2017 12:13PM By ROBERTA WARNER MD ; [facility] Bactrim DS 800-160MG Oral Tablet 10/12/2016 - 10/23/19 Provider: ROBERTA WARNER MD Diagnosis: One tablet twice a day Last Documented On 10/12/2016 4:51PM By ROBERTA WARNER MD ; [facility] NuvaRing 0.12-0.015MG/24HR Vaginal Ring 10/12/2016 - 0 08/11/2017 Provider: Diagnosis: Last Documented On 8 2:31PM By SUJATA ROSENBAUM ; [facility] NuvaRing 0.12-0.015MG/24HR V aginal Ring 10/12/2016 - 08/06/2017 Provider: ROBERTA WARNER MD Diagnosis: i ring vaginally X 3 weeks, remove, then insert new ring 1 week later Last Documented On 08/06/2017 12:04PM By ROBERTA WARNER MD ; [facility] MetFORMIN HCl 500MG Oral Tablet 06/26/2016 - 7 Provider: ROBERTA WARNER MD Diagnosis: i po in am X 1-2 weeks then increase to i po bid Last Documented On 06/26/2016 2:26PM By ROBERTA WARNER MD ; [facility] NuvaRing 0.12-0.015MG/24HR V aginal Ring 06/26/2016 - 10/12/2016 Provider: ROBERTA WARNER MD Diagnosis: i ring vaginally X 3 weeks, remove, then insert new ring 1 week later Last Documented On 10/12/2016 4:49PM By ROBERTA WARNER MD ; [facility] Paragard Intrauterine Copper Intrauterine device 06/23/2016 - 06/26/2016 Provider: Diagnosis: Last Documented On 06/26/2016 1:57PM By GIANNI CARDENAS LPN ; [facility] CeleXA 20 MG Tablet 02/11/2016 - 03/12/2016 Provider: ROBERTA WARNER MD 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, NEC One tablet daily Last Documented On 02/11/2016 2:33PM By ROBERTA WARNER MD ; [facility] Classic 28-0.8 MG Tablet 04/12/2015 - 016 Provider: Diagnosis: Last Documented On 02/11/2016 2:12PM By NATIVIDAD ROSENBAUM ; [facility] Sulfamethoxazole-TMP DS 800- 160 MG Tablet 08/21/2014 - 08/28/2014 Provider: ROBERTA WARNER MD Diagnosis: One tablet twice a day Last Documented On 08/21/2014 2:47PM By ROBERTA WARNER MD ; [facility] Aviane 0.1-20 MG-MCG Tablet 06/26/2014 - 10/16/2014 Pr ovider: ROBERTA WARNER MD Diagnosis: One tablet daily Last Documented On 06/26/2014 10:58AM By ROBERTA WARNER MD ; [facility] Medications Administered Includes: Administered Medications in patient's chart No Administered Medications Recorded Results Includes: Results from 06/06/2023 through 06/05/2024 No Results Recorded For Specified Dates History of Present Illness History of Present Illness not supported for this document type No History of Present Illness Recorded Social History Description Last Updated In monogamous relationship 10/12/2016 Last Documented On 7 4:54PM ; [facility] Sexually active 10/12/2016 Last Documented On 7 4:54PM ; [facility] Cigarette smoking 10/12/2016 Last Documented On 7 4:54PM ; [facility] Alcohol use: 2 drinks or less per day oc c 06/26/2016 Last Documented On 7 2:23PM ; [facility] Smoking status : Current everyday smoker 04/17/2016 Last Documented On 7 2:05PM ; [facility] Sexually active 8 weeks 02/10 Last Documented On 6 2:34PM ; [facility] Tobacco use 04/15/2015 Last Documented On 6 4:19PM ; [facility] Medical History Includes: Medical History in patient's chart Description Last Updated Contraception: Nuvaring 10/12/2016 Last Documented On 7 4:54PM ; [facility] LMP: 10/04/2016 10/12/2016 Last Documented On 7 4:54PM ; [facility] Aborta 1 10/12/2016 Last Documented On 7 4:54PM ; [facility] 2 10/12/2016 Last Documented On 7 4:54PM ; [facility] Last pap smear date 04/12/2015 10/12/2016 Last Documented On 7 4:54PM ; [facility] Para 1 10/12/2016 Last Documented On 7 4:54PM ; [facility] Infant is bottle-feeding 02/11/2016 Last Documented On 6 2:34PM ; [facility] Baby thriving boy Ricardo 02/11/2016 Last Documented On 6 2:34PM ; [facility] History of Abnormal Pap Smear LSIL 201408/15/2015 Last Documented On 6 3:42PM ; [facility] History of depression no meds for 1 1/2 years 08/15/2015 Last Documented On 6 3:42PM ; [facility] Previous hospitalizations [facility] depression 08/15/2015 Last Documented On 6 3:42PM ; [facility] Result: abnormal lsil 08/15/2015 Last Documented On 6 3:42PM ; [facility] Family History Includes: Family History in patient's chart Description Last Updated Family history of diabetes mellitus carlos hughes aunt 06/26/2014 Last Documented On 5 11:01AM ; [facility] Review of Systems Review of [...] Subscriber Relationship Effect melvin Dates 1 - [facility] [id number] DAVID ALBRECHT [place] Child 2 - MEDICAID - [facility] [id number] JONNIE ALBRECHT Self Clinical Notes Includes: Signed Clinical Notes starting from 04/17/2022 No Clinical Notes Recorded
--- OUTSIDE RECORDS SUMMARY | 2024-06-05 19:21 | XMS_ITS | Clinical Summary ---
Author Organization [facility] Address [address] [place] [address] Phone Care Team Providers Care Perioperative Nurse Name Role Phone ROBERTA WARNER MD Primary Care Provider [phone] Reason for Visit and Chief Complaint * [...] 08/06/2017 12:13PM By ROBERTA WARNER MD ; [facility] Bactrim DS 800-160MG Oral Tablet 10/12/2016 - 10/23/19 17 Provider: ROBERTA WARNER MD Diagnosis: One tablet twice a day Last Documented On 10/12/2016 4:51PM By ROBERTA WARNER MD ; [facility] MetFORMIN HCl 500MG Oral Tablet 06/26/2016 - 7 Provider: ROBERTA WARNER MD Diagnosis: i po in am X 1-2 weeks then increase to i po bid Last Documented On 06/26/2016 2:26PM By ROBERTA WARNER MD ; [facility] CeleXA 20 MG Tablet 02/11/2016 - 03/12/2016 Provider: ROBERTA WARNER MD 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, NEC One tablet daily Last Documented On 02/11/2016 2:33PM By ROBERTA WARNER MD ; [facility] Sulfamethoxazole-TMP DS 800- 160 MG Tablet 08/21/2014 - 08/28/2014 Provider: ROBERTA WARNER MD Diagnosis: One tablet twice a day Last Documented On 08/21/2014 2:47PM By ROBERTA WARNER MD ; [facility] Aviane 0.1-20 MG-MCG Tablet 06/26/2014 - 10/16/2014 Pr ovider: ROBERTA WARNER MD Diagnosis: One tablet daily Last Documented On 06/26/2014 10:58AM By ROBERTA WARNER MD ; [facility] Medications Administered Includes: Administered [...] 06/26/2014 Last Documented On 7 2:31PM ; [facility] Review of Systems Includes: [...] Relationship Effect melvin Dates 1 - R [id number] TRENA DAVID F Child 2 - MEDICAID - NON [facility] [id number] JONNIE ALBRECHT Self Clinical Notes Includes: Clinical Notes from this encounter No Clinical Notes Recorded
== END 2024-06-05 18:23 | disposition home or self-care (01) ==
PROVIDERS: Emergency Provider Registered Nurse; PCP Hospitalist
DX: R10.9 Unspecified abdominal pain (principal); K21.9 Gastro-esophageal reflux disease without esophagitis; E28.2 Polycystic ovarian syndrome; F17.210 Nicotine dependence, cigarettes, uncomplicated; F17.290 Nicotine dependence, other tobacco product, uncomplicated
CPT/HCPCS: 81003; 87086; 99213; G0463